=== PATIENT | female | born 1960 | race Caucasian/White ===

== ENCOUNTER 2017-01-03 13:03 | Emergency (ER) | payer MEDICARE, MEDICAID ==
[2017-01-03 13:10] VITALS: BP 151/105
[2017-01-03] MEDS ORDERED: Ondansetron ODT TAB* 4 MG PO ONE (14:30)
--- NOTE | 2017-01-03 14:41 | UC ---
Dizzy HPI HPI Summary: Bilat ear "clanging," "metallic sound" with pain, altered equilibrium, nausea starting 2 days ago. Denies fever, nasal congestion, vomiting, cough. - History Of Current Complaint Chief Complaint: UCEar Stated Complaint: EAR ISSUE Time Seen by Provider: 01/03/17 13:49 Hx Obtained From: Patient Hx Last Menstrual Period: jul 2012 ?: No Onset/Duration: Gradual Onset, Lasting Days Timing: Constant Severity Initially: Moderate Severity Currently: Moderate Character: Weak, Dizzy Aggravating Factor(s): Nothing Alleviating Factor(s): Nothing Associated Signs And Symptoms: Positive: Nausea, Tinnitus, Unsteady Gait - Allergies/Home Medications Allergies/Adverse Reactions: Allergies Allergy/AdvReac Type Severity Reaction Status Date / Time Cortisone Allergy Mild Rash, Verified 04/03/16 15:07 SEVERE NAUSEA AND VOMITING PMH/Surg Hx/FS Hx/Imm Hx Cardiovascular History: Hypertension, Deep Vein Thrombosis, Bleeding Disorders - on anticoagnulant Respiratory History: Asthma - Surgical History Surgical History: Yes Surgery Procedure, Year, and Place: [place] AGE 9[place] [facility] [place] [facility] [place] lumpectomy right, D&C and uterine ablation 2010 - Family History Known Family History: Positive: Cardiac Disease Negative: Other - JOINT LAXITY Family History: Mother: Heart failure. Father: Stroke - Social History Lives: Alone Alcohol Use: None Substance Use Type: None Smoking Status (MU): Former Smoker When Did the Patient Quit Smoking/Using Tobacco: many years ago - Immunization History Most Recent Influenza Vaccination: 2013 Most Recent Tetanus Shot: in the past year Most Recent Pneumonia Vaccination: none Review of Systems Constitutional: Negative Skin: Negative Eyes: Negative ENT: Negative Respiratory: Negative Cardiovascular: Negative Gastrointestinal: Negative Genitourinary: Negative Motor: Negative Neurovascular: Negative Musculoskeletal: Negative Neurological: Headache, Weakness Psychological: Negative All Other Systems Reviewed And Are Negative: Yes Physical Exam Triage Information Reviewed: Yes Appearance: Well-Nourished, Pain Distress - crying Vital Signs: Initial Vital Signs Temp 98 F 01/03/17 13:07 Pulse 83 01/03/17 13:07 Resp 18 01/03/17 13:07 BP 151/105 01/03/17 13:07 Pulse Ox 99 01/03/17 13:07 Vital Signs Reviewed: Yes Eye Exam: Other - pt c/o double vision at extremes of gaze Eyes: Positive: Conjunctiva Clear ENT: Positive: Normal ENT inspection, Hearing grossly normal, Pharynx normal, TMs normal. Negative: TM bulging, TM dull, Tonsillar swelling, Tonsillar exudate Dental Exam: Normal Neck exam: Normal Neck: Positive: Supple, Nontender Respiratory Exam: Normal Respiratory: Positive: Chest non-tender, Lungs clear, Normal breath sounds, No respiratory distress, No accessory muscle use Cardiovascular Exam: Normal Cardiovascular: Positive: RRR, No Murmur Musculoskeletal: Positive: Strength Intact, ROM Intact Neurological Exam: Other - unable to keep upright with tandem walk Neurological: Positive: Alert Psychological Exam: Other - upset, uncomfotable Skin Exam: Normal Dizzy Course/Dx - Differential Dx/Diagnosis Provider Diagnoses: vertigo, possible central cause - Physician Notifications Discussed Patient Care With: Gianni Chino Time Discussed With Above Provider: 14:49 Instructed by Provider To: MD Will See In ED Discharge - Discharge Plan Condition: Stable Disposition: TRANS HIGHER LVL OF CARE FAC
[2017-01-03] MEDS ORDERED: NS 0.9% 1000 ML* 1,000 ML BOLUS ONE (14:48)
[2017-01-03] MEDS ORDERED: Ondansetron INJ* 2 MG/ML VIAL IV ONE (14:48)
== END 2017-01-03 15:30 | disposition short-term general hospital (02) ==
LOC: UCEAST 13:03
DX: Z87.891 Personal history of nicotine dependence (principal); R42 Dizziness and giddiness
CPT/HCPCS: 96360; 96374; 99213; G0463; J2405

== ENCOUNTER 2017-01-03 15:50 | Observation (INO) | payer MEDICARE, MEDICAID ==
[2017-01-03 17:05] LABS: Hematocrit 35 % (35-47); Hemoglobin 11.9 g/dl (12.0-16.0); Mean Corpuscular HGB Conc 34 g/dl (31-36); Mean Corpuscular Hemoglobin 32 pg (27-31); Mean Corpuscular Volume 95 fL (80-97); Mean Platelet Volume 8 um3 (7.4-10.4); Red Blood Count 3.74 10^6/ul (4.0-5.4); Red Cell Distribution Width 13 % (10.5-15); White Blood Count 7.9 10^3/ul (3.5-10.8)
[2017-01-03 17:22] LABS: Albumin 4.1 g/dL (3.2-5.2); BUN/Creatinine Ratio 19.9 (8-20); Calcium 9.8 mg/dL (8.6-10.3); EGFR African American 49.8 (>60); EGFR Non-African American 38.7 (>60); Globulin 3.6 g/dL (2-4); Magnesium 2.3 mg/dL (1.9-2.7); Potassium 3.4 mmol/L (3.5-5.0); Total Bilirubin 0.5 mg/dL (0.2-1.0); Total Protein 7.7 g/dL (6.4-8.9)
--- NOTE | 2017-01-03 17:26 | ED ---
Neurological HPI - HPI Summary HPI Summary: 56F presents with two days of feeling off balance and tilting to the right. She states she has a grating noise in her right ear. She states her symptoms are worst when she lies down. She admits to nausea and vomiting. She states this has made her unsteady on her feet. She has not fallen. She denies any weakness. She denies any numbness or tingling. She denies any change in speech. She does admits to a headache that starts by her right ear and travels across her head. She denies any fullness in her ears. She denies any fever or sinus tenderness or tooth pain. She denies any new medications. She denies any previous stroke but does have a family history of strokes. She denies any history of ear infection or balance issues. She is on blood thinners for PE and DVT and has HTN. - History of Current Complaint Chief Complaint: EDGeneral Stated Complaint: DIZZINESS Time Seen by Provider: 01/03/17 16:40 Hx Last Menstrual Period: jul 2012 Pain Intensity: 8 - Allergy/Home Medications Allergies/Adverse Reactions: Allergies Allergy/AdvReac Type Severity Reaction Status Date / Time Cortisone Allergy Mild Rash, Verified 04/03/16 15:07 SEVERE NAUSEA AND VOMITING Home Medications: Home Medications Cyanocobalamin [Vitamin B-12] 400 mcg PO DAILY 01/03/17 [History Confirmed 01/03] Folic Acid TAB* [Folvite TAB*] 2 mg PO DAILY 01/03/17 [History Confirmed ] Ibuprofen TAB* [Advil TAB*] 400 mg PO TID PRN 01/03/17 [History Confirmed ] Multivitamins/Minerals TAB* [Theragran/minerals TAB*] 1 tab PO DAILY 01/03/17 [ History Confirmed 01/03/17] Pyridoxine TAB* [Vitamin B6 TAB*] 25 mg PO DAILY 01/03/17 [History Confirmed ] Rivaroxaban TAB(*) [Xarelto 20 mg] 20 mg PO DAILY 01/03/17 [History Confirmed ] PMH/Surg Hx/FS Hx/Imm Hx Endocrine/Hematology History: Reports: Hx Anemia - HISTORY OF Denies: Hx Diabetes Cardiovascular History: Reports: Hx Hypertension, Other Cardiovascular Problems/ Disorders - HISTORY OF IRREGULAR HEARTBEAT Denies: Hx Pacemaker/ICD Respiratory History: Reports: Hx Asthma History: Reports: Other Problems/Disorders - HX OF UTI, NONE NOW Denies: Hx Renal Disease Musculoskeletal History: Reports: Hx Tendonitis - RIGHT FOOT Sensory History: Reports: Hx Contacts or Glasses Denies: Hx Hearing Aid Opthamlomology History: Reports: Hx Contacts or Glasses Neurological History: Reports: Hx Headaches, Hx Migraine - PRN MEDICATION - NONE FOR A FEW MONTHS Psychiatric History: Reports: Hx Anxiety - ON MEDICATION, Hx Depression, Hx Post Traumatic Stress Disorder, Hx Substance Abuse - not for 6 years Denies: Hx Eating Disorder, Hx Panic Disorder, Hx of Violent Episodes Against Others - Cancer History Hx Chemotherapy: No Hx Radiation Therapy: No - Surgical History Surgery Procedure, Year, and Place: T/A AGE 9, [facility] 1997 Left foot adenoma, [facility] 2002 benign lumpectomy right, D&C and uterine ablation 2010 Hx Anesthesia Reactions: No Infectious Disease History: No Infectious Disease History: Reports: Hx of Known/Suspected MRSA Denies: Hx Clostridium Difficile, Hx Hepatitis, Hx Human Immunodeficiency Virus (HIV), Hx Shingles, Hx Tuberculosis, Hx Known/Suspected VRE, Hx Known/ Suspected VRSA, History Other Infectious Disease, Traveled Outside the [place] in Last 30 Days - Family History Known Family History: Positive: Unknown, Cardiac Disease Negative: Other - JOINT LAXITY Family History: Mother: Heart failure. Father: Stroke - Social History Alcohol Use: None Substance Use Type: Reports: None Hx Tobacco Use: Yes Smoking Status (MU): Former Smoker Review of Systems Negative: Fever Positive: Ear Ache Negative: Chest Pain Negative: Shortness Of Breath Positive: Headache All Other Systems Reviewed And Are Negative: Yes Physical Exam Triage Information Reviewed: Yes Vital Signs On Initial Exam: Initial Vitals Temp Pulse Resp BP Pulse Ox 98.0 F 70 20 154/69 100 01/03/17 16:03 01/03/17 16:03 01/03/17 16:03 01/03/17 16:03 01/03/17 16:03 Vital Signs Reviewed: Yes Appearance: Positive: Well-Appearing Skin: Positive: Warm, Dry Head/Face: Positive: Normal Head/Face Inspection Eyes: Positive: Normal, EOMI, SARAH, Conjunctiva Clear ENT: Positive: Normal ENT inspection, Pharynx normal, TMs normal Respiratory/Lung Sounds: Positive: Clear to Auscultation, Breath Sounds Present Cardiovascular: Positive: Normal, RRR Neurological: Positive: Sensory/Motor Intact, Alert, Oriented to Person Place, Time, CN Intact II-III, Heel to Toe, Finger to Nose - [place] Coma Scale Best Eye Response: 4 - Spontaneous Best Motor Response: 6 - Obeys Commands Best Verbal Response: 5 - Oriented Coma Scale Total: 15 Diagnostics - Vital Signs Vital Signs Temp Pulse Resp BP Pulse Ox 01/03/17 16:05 98.0 F 74 20 154/69 100 01/03/17 16:03 98.0 F 70 20 154/69 100 - Laboratory Lab Results: Lab Results 01/03/17 01/03/17 01/03/17 Range/Units 16:55 16:55 16:55 WBC 7.9 (3.5-10.8) 10^3/ul RBC 3.74 L (4.0-5.4) 10^6/ul Hgb 11.9 L (12.0-16.0) g/dl Hct 35 (35-47) % MCV 95 (80-97) fL MCH 32 H (27-31) pg MCHC 34 (31-36) g/dl RDW 13 (10.5-15) % Plt Count 280 (150-450) 10^3/ul MPV 8 (7.4-10.4) um3 Neut % (Auto) 53.7 (38-83) % Lymph % (Auto) 30.4 (25-47) % [place] % (Auto) 6.9 (1-9) % Eos % (Auto) 7.4 H (0-6) % Baso % (Auto) 1.6 (0-2) % Absolute Neuts (auto) 4.2 (1.5-7.7) 10^3/ul Absolute Lymphs (auto) 2.4 (1.0-4.8) 10^3/ul Absolute Monos (auto) 0.5 (0-0.8) 10^3/ul Absolute Eos (auto) 0.6 (0-0.6) 10^3/ul Absolute Basos (auto) 0.1 (0-0.2) 10^3/ul Absolute Nucleated RBC 0.01 10^3/ul Nucleated RBC % 0.1 INR (Anticoag Therapy) 1.05 (0.89-1.11) Sodium 138 (133-145) mmol/L Potassium 3.4 L (3.5-5.0) mmol/L Chloride 108 (101-111) mmol/L Carbon Dioxide 21 L (22-32) mmol/L Anion Gap 9 (2-11) mmol/L BUN 28 H (6-24) mg/dL Creatinine 1.41 H (0.51-0.95) mg/dL Est GFR ( Amer) 49.8 (>60) Est GFR (Non-Af Amer) 38.7 (>60) BUN/Creatinine Ratio 19.9 (8-20) Glucose 85 (70-100) mg/dL Lactic Acid (0.5-2.0) mmol/L Calcium 9.8 (8.6-10.3) mg/dL Magnesium 2.3 (1.9-2.7) mg/dL Total Bilirubin 0.50 (0.2-1.0) mg/dL AST 17 (13-39) U/L ALT 15 (7-52) U/L Alkaline Phosphatase 67 (34-104) U/L Troponin I 0.00 (<0.04) ng/mL Total Protein 7.7 (6.4-8.9) g/dL Albumin 4.1 (3.2-5.2) g/dL Globulin 3.6 (2-4) g/dL Albumin/Globulin Ratio 1.1 (1-3) TSH Pending 01/03/17 Range/Units 16:55 WBC (3.5-10.8) 10^3/ul RBC (4.0-5.4) 10^6/ul Hgb (12.0-16.0) g/dl Hct (35-47) % MCV (80-97) fL MCH (27-31) pg MCHC (31-36) g/dl RDW (10.5-15) % Plt Count (150-450) 10^3/ul MPV (7.4-10.4) um3 Neut % (Auto) (38-83) % Lymph % (Auto) (25-47) % [place] % (Auto) (1-9) % Eos % (Auto) (0-6) % Baso % (Auto) (0-2) % Absolute Neuts (auto) (1.5-7.7) 10^3/ul Absolute Lymphs (auto) (1.0-4.8) 10^3/ul Absolute Monos (auto) (0-0.8) 10^3/ul Absolute Eos (auto) (0-0.6) 10^3/ul Absolute Basos (auto) (0-0.2) 10^3/ul Absolute Nucleated RBC 10^3/ul Nucleated RBC % INR (Anticoag Therapy) (0.89-1.11) Sodium (133-145) mmol/L Potassium (3.5-5.0) mmol/L Chloride (101-111) mmol/L Carbon Dioxide (22-32) mmol/L Anion Gap (2-11) mmol/L BUN (6-24) mg/dL Creatinine (0.51-0.95) mg/dL Est GFR ( Amer) (>60) Est GFR (Non-Af Amer) (>60) BUN/Creatinine Ratio (8-20) Glucose (70-100) mg/dL Lactic Acid 1.2 (0.5-2.0) mmol/L Calcium (8.6-10.3) mg/dL Magnesium (1.9-2.7) mg/dL Total Bilirubin (0.2-1.0) mg/dL AST (13-39) U/L ALT (7-52) U/L Alkaline Phosphatase (34-104) U/L Troponin I (<0.04) ng/mL Total Protein (6.4-8.9) g/dL Albumin (3.2-5.2) g/dL Globulin (2-4) g/dL Albumin/Globulin Ratio (1-3) TSH Result Diagrams: 01/03/17 16:55 01/03/17 16:55 Lab Statement: Any lab studies that have been ordered have been reviewed, and results considered in the medical decision making process. - CT brain CT Interpretation: Positive (See Comments) - IMPRESSION: 1. No acute intracranial process evident. 2. 4 mm chronic appearing lacunar infarct at the LEFT basal ganglia new compared with the [address] Interpretation Completed By: Radiologist NIH Scale - NIH Scale Level of Consciousness: Alert/Keenly Responsive Ask Patient the Month and His/Her Age: Both Correct Ask Pt to Open/Close Eyes and [place]/Release Non-Paretic Hand: Both Correctly Best Gaze (Only Horizontal Eye Movement): Normal Visual Field Testing: No Visual Loss Facial Paresis-Pt to Smile & Close Eyes or Grimace Symmetry: Normal/Symmetrical Motor Function - Right Arm: No Drift-Holds 10 Seconds Motor Function - Left Arm: No Drift-Holds 10 Seconds Motor Function - Right Leg: No Drift-Holds 10 Seconds Motor Function - Left Leg: No Drift-Holds 10 Seconds Limb Ataxia-Must be out of Proportion to Weakness Present: Absent Sensory (Use Pinprick to Test Arms/Legs/Trunk/Face): Normal Best Language (Describe Picture, Name Items): No Aphasia Dysarthria (Read Several Words): Normal Extinction and Inattention: No Abnormality Total Score: 0 Course/Dx - Course Course Of Treatment: 56F presents with two days of feeling off balance and tilting to the right. She states she has a grating noise in her right ear. She states her symptoms are worst when she lies down. She admits to nausea and vomiting. She states this has made her unsteady on her feet. She has not fallen. She denies any weakness. She denies any numbness or tingling. She denies any change in speech. She does admits to a headache that starts by her right ear and travels across her head. normal neuro exam. no nystagmsus. CT shows old lacunar infarct. dr hernandez saw patient and states should admits patient as new old lacunar infaract. has risk factors for CVA. dr mirza agrees to admission. patient understands and agrees with plan - Differential Dx Differential Diagnoses Neuro: Positive: Benign Paroxysmal Positional Vertigo, Cerebrovascular Accident, Labyrinthitis, Meniere's, Transient Ischemic Attack - Diagnoses Provider Diagnoses: Vertigo, Ear pain Discharge - Discharge Plan Condition: Stable Disposition: ADMITTED TO [facility]
--- NOTE | 2017-01-03 17:36 | RAD ---
Indication: Headache. Bilateral ear pain. Dizziness, unsteady gait. Comparison: July 13, 2008 CT. Technique: Noncontrast CT vertex of skull through foramen magnum. Report: Unremarkable cerebral sulci, ventricles, and basal cisterns. 4 mm chronic appearing lacunar infarct at the LEFT basal ganglia new compared with the 2009 exam. Negative for gandhi matter white matter obscuration, intra or extra-axial hemorrhage, or mass effect. Unremarkable orbital contents. Unremarkable calvarium and skull base. Clear visualized paranasal sinuses and mastoid air spaces. Negative for scalp lesions. IMPRESSION: 1. No acute intracranial process evident. 2. 4 mm chronic appearing lacunar infarct at the LEFT basal ganglia new compared with the 2008 exam.
[2017-01-03 17:42] LABS: TSH (Thyroid Stimulating Horm) 2.02 mcIU/mL (0.34-5.60)
[2017-01-03 17:58] LABS: Urine Bilirubin Negative (Negative); Urine Glucose Negative (Negative); Urine Nitrite Negative (Negative)
[2017-01-03] MEDS ORDERED: Aspirin Low Dose CHEW TAB* 81 MG PO ONE (17:59)
[2017-01-03] MEDS ORDERED: Ondansetron INJ* 2 MG/ML VIAL IV PRN (19:33)
[2017-01-03] MEDS ORDERED: Potassium Chlor TAB* 20 MEQ TAB.ER PO ONE (20:00)
[2017-01-03 20:06] LABS: Erythrocyte Sed Rate 72 mm/Hr (0-30)
[2017-01-03] MEDS ORDERED: Mometasone 220 MCG MDI INH SCH (21:00)
[2017-01-03] MEDS ORDERED: Acetaminophen TAB* 325 MG PO PRN (22:00)
[2017-01-03] MEDS: ALPRAZolam TAB* 0.5 MG PO PRN (22:03)
--- NOTE | 2017-01-03 22:04 | RAD ---
INDICATION: CVA. COMPARISON: No relevant prior exams available on the [facility] PACS for comparison. TECHNIQUE: Bilateral carotid duplex scan. Stenosis estimations reflect velocity criteria that have been correlated to angiographic stenosis calculations based on distal internal carotid diameter. REPORT: RIGHT ICA: 76 cm/s peak systolic 30 cm/s end diastolic CCA: 100 cm/s peak systolic ICA/CCA peak systolic ratio: 0.76 The right common carotid artery and internal carotid artery are without evidence for significant atherosclerotic disease. Normal spectral wave forms are present throughout. Antegrade flow in the right vertebral artery. LEFT ICA: 65 cm/s peak systolic 22 cm/s end diastolic CCA: 106 cm/s peak systolic ICA/CCA peak systolic ratio: 0.61 The left common carotid artery and internal carotid artery are without evidence for significant atherosclerotic disease. Normal spectral wave forms are present throughout. Antegrade flow in the left vertebral artery. Incidental 1 cm heterogeneous echogenicity nodule noted in the LEFT thyroid lobe. IMPRESSION: 1. No evidence for RIGHT or LEFT internal carotid artery stenosis. 2. Incidental LEFT thyroid lobe nodule. Consider follow-up dedicated thyroid ultrasound for further assessment. CPT II Codes: 3100F
--- NOTE | 2017-01-03 22:47 | CONS ---
NEUROLOGY CONSULTATION REPORT: DATE OF FOLLOWUP: 01/03/17 REFERRING PROVIDER: RONALDO Bo. LOCATION: She is in the emergency room to be admitted. CHIEF COMPLAINT: Dizziness, tinnitus. HISTORY OF PRESENT ILLNESS: Chayo Huang is a 56-year-old woman who 2 days ago noted a clanging sound in her right ear. It fluctuates in intensity, but has been pretty constant. It is like metal being banged together. It does not seem to synchronize with her heartbeat, but it is "driving me crazy." At the time, she feels that she is tilting to the right. It is a constant sensation and not affected by position. She has not fallen, but she feels like she has to walk more cautiously. She also has noted some intermittent diplopia. It can be in any field of gaze and seems to be horizontal. She has not noticed any headache recently, but does have a history of migraines. She has not noticed any change in speech, swelling or numbness. She has not noticed any incoordination in her hands. She presented to the emergency room today 2 days after onset of symptoms for evaluation. PAST MEDICAL HISTORY: Negative for cerebrovascular disease. She has a history of hypertension, alcohol abuse in remission, bipolar disorder, suicide attempts , pulmonary embolus and deep vein thrombosis resulting in anticoagulation, anxiety disorder, posttraumatic stress disorder, migraines. MEDICATIONS: Medications at home consist of Xarelto, Ambien 10 mg p.o. q.h.s., alprazolam 1 mg t.i.d. p.r.n. anxiety, gabapentin 300 mg p.o. b.i.d., verapamil 180 mg p.o. daily, sumatriptan p.r.n. ALLERGIES: She states she is allergic to CORTISONE. REVIEW OF SYSTEMS: Negative for headaches in the last couple of days, but she does get episodic migraines. She quit drinking alcohol about 6 years ago. She has not noticed any loss of hearing, but just the tinnitus as described above. She has not had any recent colds, flu, sore throats or fevers. She is a little bit nauseous in the last couple of days, but no vomiting. She has had great difficulty sleeping in the last couple of days in addition to her chronic insomnia. There has been no change in any of her medications in recent weeks, she states. PHYSICAL EXAMINATION: She is overweight, well hydrated. Temperature 98.0 temporally, blood pressure is 154/70, heart rate is running in the 70s. Lungs are clear bilaterally. Skin is warm and moist. Heart is in a regular rate and rhythm without murmurs. Carotid pulses are symmetrical and there are no anterior or posterior cervical bruits. Tympanic membranes are a little bit dull bilaterally. Neurologic exam, pupils are equal and react to light from about 3.5 to 2 mm. Funduscopic exam is normal. Eye movements are full and she reports diplopia in left gaze, but I do not see overt ophthalmoplegia. There are a few beats of nystagmus in right gaze and more sustained nystagmus in left gaze. Visual kim are full to confrontation. Facial musculature is symmetric. Facial sensation to light touch and temperature is intact. Palate and tongue appear normal, tongue protrudes in the midline, there is no dysarthria. Hearing is intact bilaterally. Neck strength is normal. Motor exam reveals normal tone and strength in the limbs proximally and distally. There is no pronator drift. There is no downward drift of her legs. Scaegs-[id number] maneuver is tremulous bilaterally. There is no dysmetria. Heel- to- caballero maneuvers are normal bilaterally. She may have a slight right head tilt. Reflexes are very brisk except for ankles which are absent. Plantar responses are flexor bilaterally. Gait is a little wide-based and very cautious. She is alert, oriented, and very anxious appearing. Memory is otherwise intact and language is fluent. She has normal attention, concentration, and fund of knowledge. DIAGNOSTIC STUDIES/LAB DATA: Includes a CT of the brain, which I reviewed, reveals an old-appearing subcortical left hemisphere infarct and appears to be in the deep white matter, although it is read as being in the basal ganglia. It was not present on a CAT scan in 2008. Other laboratory data notable for a normal CBC other than a hemoglobin of 11.9, INR 1.05, PTT 36.2. Chemistry is notable for a creatinine of 1.41, which historically is close to her baseline over the last several years. TSH is normal today. IMPRESSION AND PLAN: Impression is that of a sense of tilt and tinnitus, which I cannot explain well on a peripheral vestibular basis. She has what appears to be an old subcortical infarct in the left hemisphere on her CT of the brain, which was not present in 2009. She also has chronic renal insufficiency and hypertension, and I think it best that she be admitted and evaluated for a possible stroke. She should have an MRI of the brain, a carotid ultrasound of the neck. I would like to get a CTA or MR angiogram of her brain if possible, but we need to be careful with contrast given her renal function. She will remain on Xarelto. I do not think I would add antiplatelet therapy at this point yet. I will follow her and make recommendations based on her clinical course and the results of her studies. [id number]/[facility] #: [id number] ZACH
--- NOTE | 2017-01-03 23:21 | HP ---
CC: Jose R Viramontes MD; Harpal Chakraborty MD * HISTORY AND PHYSICAL: DATE OF ADMISSION: 01/03/17 PRIMARY CARE PROVIDER: Jose R Viramontes MD ATTENDING PHYSICIAN: Jez Villanueva MD * (dictated by Zayra Tucker NP) CHIEF COMPLAINT: Clinging metal sound in bilateral ears and tilting to right side. HISTORY OF PRESENT ILLNESS: Ms. Huang is a 56-year-old female with past medical history significant for hypertension, history of DVT, history of PE, asthma, bipolar, anxiety, PTSD, hyperlipidemia, and migraines, who presents to the emergency room from urgent care center for further evaluation of her symptoms. The patient states that 2 days ago, she developed a bilateral sound in her ears. She describes as a clinging metal sound and a dull headache. The patient also has dizziness intermittently and an unsteady gait. She noticed that she was tilting to the right side. The patient denied any recent fever, chills, chest pain, shortness of breath, cold symptoms such as nasal congestion , runny nose, cough. The patient reports nausea when the sound is "bad." She denies any lightheadedness or dizziness, more of a feeling like she is going to fall to the right. She reports double vision. The patient presented to Urgent Care for further evaluation of her symptoms. While at Urgent Care, the patient received normal saline and Zofran and was transported to the emergency room via EMS. While in the emergency room, the patient had labs that were significant for hyperkalemia with a potassium of 3.7, her other labs were fairly unremarkable. Her BUN and creatinine are elevated, but at her baseline. The patient had an EKG showing a sinus rhythm with a rate of 60, no signs of acute ischemia. The patient had a head CT showing no acute intracranial processes, but a 4 mm chronic appearing lacunar infarct at the left basal ganglia, it is new compared to 2008. The patient was seen in consultation by Dr. Harpal Chakraborty with Neurology, who recommended the patient be admitted for further evaluation and a stroke workup. Hospitalists were asked to evaluate the patient for admission. PAST MEDICAL HISTORY: 1. Hypertension. 2. History of DVT in 2015. 3. History of PE in 2013. 4. Asthma. 5. Bipolar. 6. Anxiety. 7. PTSD. 8. Hyperlipidemia. 9. Migraines. 10. Chronic Kidney Disease. PAST SURGICAL HISTORY: 1. Status post tonsillectomy and adenoidectomy at age 9. 2. Status post excision of a left-sided neuroma in 1997. 3. Status post right breast lumpectomy in 2002. 4. Status post D and C and uterine ablation in 2010. HOME MEDICATIONS: Include: 1. Ambien 10 mg oral daily at bedtime. 2. Verapamil 180 mg oral daily. 3. Triamterene/hydrochlorothiazide 37.5/25 one tablet oral daily. 4. Imitrex 25 mg oral daily as needed for migraine. 5. Xarelto 20 mg oral daily. 6. Multivitamin 1 tablet oral daily. 7. Ibuprofen 400 mg oral 3 times daily as needed for pain. 8. [place] 5/325 one tablet oral every 8 hours as needed for pain. 9. Folic acid 2 mg oral daily. 10. Fluticasone HFA 110 mcg 1 puff inhalation twice daily. 11. Pristiq 100 mg oral every morning. 12. Vitamin B12 100 mg oral daily. 13. Albuterol 1 puff inhalation every 6 hours as needed for shortness of breath or wheeze. 14. Xanax 0.5 mg oral 3 times daily as needed for anxiety. 15. Vitamin D6 25 mg oral daily. ALLERGIES: CORTISONE. FAMILY HISTORY: The patient's mother has a history of heart failure and a myocardial infarction and kidney cancer. The patient's father had a history of 2 cerebrovascular accidents. The patient's brother with a history of bladder cancer. She denies any family history of diabetes mellitus. SOCIAL HISTORY: The patient is a former smoker. She quit smoking approximately 5 years ago. Prior to that, she had a half a pack a day history of 10 years. 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 She denies recreational drug use. 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 Her daughter, Ivon Jackman, will be her surrogate decision maker in the event she is unable to make decisions for herself. REVIEW OF SYSTEMS: I performed a 14-point review of systems. All the pertinent positives and negatives are mentioned in the history of present illness. The remaining review of systems are negative. PHYSICAL EXAMINATION GENERAL APPEARANCE: The patient is alert, pleasant, appears to be in no acute distress. VITAL SIGNS: Temperature 98.0, heart rate 72, respiratory rate 20, O2 sat 100% on room air, blood pressure 154/69. HEENT: Normocephalic, atraumatic. Pupils are equal and reactive to light. Extraocular movements are intact. RESPIRATORY: There is no accessory muscle use. The lungs are clear to auscultation bilaterally. CARDIOVASCULAR: Regular rate and rhythm. S1 and S2 are present. There are no murmurs, rubs, or gallops heard. ABDOMEN: Soft, nontender, nondistended. There are bowel sounds present x4. EXTREMITIES: There is no lower extremity edema. DP and PT pulses are 2+ and symmetric. MUSCULOSKELETAL: There is no clubbing or cyanosis noted. The patient exhibits good strength in all extremities. NEUROLOGICAL: The patient is alert and oriented x4. Cranial nerves II through XII are grossly intact. The patient's tongue is midline. Her smile was symmetric. 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 She is able to dorsi and plantarflex bilaterally. The patient is able to perform [id number] bilaterally with some difficulty due to double vision. PSYCHOLOGICAL: The patient is calm and cooperative. SKIN: There are no rashes or abnormalities seen. DIAGNOSTIC STUDIES/LABORATORY DATA: Sodium 138, potassium 3.4, chloride 108, CO2 21, BUN 28, creatinine 1.41, and glucose 85. Troponin 0.00. TSH 2.02. White blood cell count 7.9, hemoglobin 11.9, hematocrit 35, and platelet count 280. EKG shows a normal sinus rhythm with a rate of 60, there are no acute signs of ischemia. This EKG is similar to previous EKG from 05/17/14. Brain CT from today. Radiologist's impression: No acute intracranial process evident. 4-mm chronic appearing lacunar infarct at the left basal ganglia, new compared to 2009 exam. IMPRESSION: Ms. Huang is a 56-year-old female with past medical history significant for hypertension, history of deep venous thrombosis, pulmonary embolism, asthma, bipolar, anxiety, post traumatic stress disorder, hyperlipidemia, and migraines who presents to the emergency room from urgent care center with complaints of bilateral metal clinging in her ears in addition to a headache and tilting to the right side for the last 2 days. She will be admitted as an inpatient for a subacute lacunar infarct. ASSESSMENT AND PLAN: 1. Subacute lacunar infarct at the left basal ganglia. The patient has already been seen in consultation by Dr. Chakraborty with Neurology in the emergency room. The patient will be admitted and monitored on telemetry. We will get neurological checks every 4 hours. We will check fasting lipids in the morning. We will also get a transthoracic echocardiogram and a brain MRI. Due to the patient's baseline chronic renal disease, we will not get a CT of the head and neck. Instead, we will get an MRI of the brain without contrast and bilateral carotid Doppler ultrasound. For now, we will hold on giving the patient aspirin as she is already fully anticoagulated on Xarelto. 2. Hypokalemia. Will give oral replacement tonight and recheck labs in the AM. Will also add a magnesium level to the ED labs and replace if needed. 3. History of deep venous thrombosis and pulmonary embolism. The patient has had what sounds to be 2 provoked clots. The patient has been seen in consultation with Dr. Pacheco. It was recommended that the patient be placed on lifelong anticoagulation therapy. We will continue the patient's Xarelto. 4. Bipolar, anxiety, post traumatic stress disorder. The patient will be continued on her home Pristiq and Xanax as needed. 5. Hypertension. For now, we will hold the patient's verapamil and triamterene hydrochlorothiazide and allow for permissive hypertension in the setting of a recent cerebrovascular accident. 6. Hyperlipidemia. The patient reports a history of hyperlipidemia. She is currently not on any medication. We will check fasting lipids in the morning and start a statin accordingly. 7. History of migraines. Not a current issue at this time. 8. Fluids, electrolytes, and nutrition. The patient will be on a heart healthy diet. 9. Code status. Full code. 10. DVT prophylaxis. The patient is a high risk and will be continued on her home Xarelto. 11. Disposition. Inpatient for subacute cerebrovascular accident. TIME SPENT: Time for this admission was approximately 60 minutes, greater than half of that was spent [id number] with the patient discussing on medications, past medical history, and the events leading up to her arrival today, and performing physical examination. The case has been reviewed with the attending, Dr. Villanueva, who agrees with the plan of care. Reviewed by NIRAJ FRAZIER-C 01/04/17 1434 [id number]/[facility] #: [id number] [facility]
[2017-01-04 05:42] LABS: BUN/Creatinine Ratio 18.4 (8-20); Calcium 9.3 mg/dL (8.6-10.3); EGFR African American 45.7 (>60); EGFR Non-African American 35.5 (>60); HDL Cholesterol 34.5 mg/dL; Potassium 4.3 mmol/L (3.5-5.0)
[2017-01-04] MEDS: ALPRAZolam TAB* 0.5 MG PO PRN (08:55)
[2017-01-04] MEDS ORDERED: Rivaroxaban TAB(*) 20 MG TAB PO SCH (09:00)
[2017-01-04] MEDS ORDERED: Multivitamins/Minerals TAB PO SCH (09:00)
[2017-01-04] MEDS ORDERED: Folic Acid TAB* 1 MG PO SCH (09:00)
[2017-01-04] MEDS ORDERED: Pyridoxine TAB* 50 MG PO SCH (09:00)
[2017-01-04] MEDS ORDERED: CMCS:Desvenlafaxine (NF) 50 MG TAB PO SCH (09:00)
--- NOTE | 2017-01-04 11:12 | RAD ---
HISTORY: Stroke COMPARISONS: Head CT dated January 03, 2017 TECHNIQUE: The following sequences were obtained of the head: Sagittal T1-weighted images, axial T2-weighted images, axial FLAIR images, axial susceptibility weighted images, axial T1-weighted images. Additionally, axial diffusion-weighted images were obtained with calculated apparent diffusion coefficients. FINDINGS: HEMORRHAGE/INFARCT: There is no hemorrhage or acute infarct. MASSES/SHIFT: There is no mass or shift. EXTRA-AXIAL SPACES/MENINGES: There are no extra-axial fluid collections. SULCI AND VENTRICLES: The sulci and ventricles are normal in size and position for the patient's stated age. CEREBRUM: There is a chronic lacunar infarct of the left posterior frontal sherman radiata. There are scattered small foci of elevated T2/FLAIR signal in the periventricular and subcortical white matter. BRAINSTEM: There are no focal parenchymal abnormalities. CEREBELLUM: There are no focal parenchymal abnormalities. The cerebellar tonsils are normal in size and position. SELLA: The sella is normal. PINEAL: The pineal region is clear. CP ANGLE/TEMPORAL BONES: The labyrinthine structures are grossly normal. VESSELS: Normal flow-voids are noted within the visualized vertebral vasculature. DIFFUSION ABNORMALITIES: There are no diffusion abnormalities. PARANASAL SINUSES/MASTOIDS: The paranasal sinuses are clear. ORBITS: The orbits are unremarkable. BONES AND SOFT TISSUE: No bone or soft tissue abnormalities are noted. OTHER: None IMPRESSION: 1. SCATTERED SMALL FOCI OF ELEVATED T2/FLAIR SIGNAL IN THE PERIVENTRICULAR AND SUBCORTICAL WHITE MATTER. WHILE NONSPECIFIC, THESE LIKELY REPRESENT CHRONIC SMALL VESSEL ISCHEMIC CHANGE GIVEN THE PRESENCE OF A CHRONIC LACUNAR INFARCT OF THE LEFT FRONTAL SHERMAN RADIATA. 2. NO RESTRICTED DIFFUSION TO SUGGEST ACUTE INFARCT.
--- NOTE | 2017-01-04 11:13 | RAD ---
HISTORY: Stroke COMPARISONS: MRI dated January 04, 2017 TECHNIQUE: 3-D axial [id number] MR angiography was performed of the head to include the [place]. Multiple 3-D maximum intensity projection reconstructions are also submitted for review. FINDINGS: The study is limited by patient motion artifact. RIGHT VERTEBRAL ARTERY: The distal right vertebral artery is unremarkable, without stenosis. LEFT VERTEBRAL ARTERY: The distal left vertebral artery is unremarkable, without stenosis. DOMINANCE: The right vertebral artery is dominant. DISTAL RIGHT CERVICAL INTERNAL CAROTID ARTERY: The distal right cervical internal carotid artery is tortuous. DISTAL LEFT CERVICAL INTERNAL CAROTID ARTERY: The distal left cervical internal carotid artery is tortuous. INTRACRANIAL CIRCULATION: There is no aneurysm, vascular malformation, occlusion, or stenosis of the visualized intracranial circulation. The anterior communicating artery complex is clear. Bilateral posterior communicating arteries are identified. OTHER FINDINGS: None IMPRESSION: NO ANEURYSM, VASCULAR MALFORMATION, OCCLUSION, OR STENOSIS OF THE VISUALIZED INTRACRANIAL CIRCULATION.
--- NOTE | 2017-01-04 13:35 | PN ---
Subjective Date of Service: 01/04/17 Interval History: Pt is feeling unchanged from admission. She states she still hears metal clapping in her ears and feels as if she is tilting to the right. She otherwise has no complaints. Objective Active Medications: Acetaminophen (Tylenol Tab*) 650 mg PO Q4H PRN PRN Reason: FEVER/PAIN Last Admin: 01/03/17 22:11 Dose: 650 mg Alprazolam (Xanax Tab*) 0.5 mg PO TID PRN PRN Reason: ANXIETY Last Admin: 01/04/17 08:55 Dose: 0.5 mg Desvenlafaxine Succinate (Pristiq (Nf)) 100 mg PO QAM [facility] Last Admin: 01/04/17 08:56 Dose: 100 mg Folic Acid (Folvite Tab*) 2 mg PO DAILY [facility] Last Admin: 01/04/17 08:54 Dose: 2 mg Mometasone Furoate (Asmanex 220 Mcg Mdi *) 1 puff INH QPM [facility] Last Admin: 01/03/17 21:45 Dose: Not Given Multivitamins/Minerals (Theragran/Minerals Tab*) 1 tab PO DAILY [facility] Last Admin: 01/04/17 08:56 Dose: 1 tab Ondansetron HCl (Zofran Inj*) 4 mg IV Q6H PRN PRN Reason: NAUSEA Pyridoxine HCl (Vitamin B6 Tab*) 25 mg PO DAILY [facility] Last Admin: 01/04/17 08:53 Dose: 25 mg Rivaroxaban (Xarelto (*)) 20 mg PO DAILY [facility] Last Admin: 01/04/17 08:54 Dose: 20 mg Vital Signs 01/03/17 01/03/17 01/03/17 18:26 19:50 20:01 Temperature 99.0 F 99.0 F 98 F Pulse Rate 64 64 84 Respiratory 16 18 18 Rate Blood Pressure 141/72 136/74 156/93 (mmHg) O2 Sat by Pulse 100 100 Oximetry 01/03/17 01/03/17 01/03/17 20:15 22:00 22:03 Temperature Pulse Rate Respiratory 22 22 18 Rate Blood Pressure (mmHg) O2 Sat by Pulse Oximetry 01/03/17 01/04/17 01/04/17 23:00 00:03 00:19 Temperature 97.7 F Pulse Rate 67 Respiratory 14 18 16 Rate Blood Pressure 136/73 (mmHg) O2 Sat by Pulse 100 Oximetry 01/04/17 01/04/17 01/04/17 01:00 02:00 02:45 Temperature 97.7 F Pulse Rate 68 Respiratory 14 6 18 Rate Blood Pressure 118/67 (mmHg) O2 Sat by Pulse 98 Oximetry 01/04/17 01/04/17 01/04/17 03:00 04:00 05:00 Temperature Pulse Rate Respiratory 13 21 27 Rate Blood Pressure (mmHg) O2 Sat by Pulse Oximetry 01/04/17 01/04/17 01/04/17 06:00 07:00 07:37 Temperature 98.6 F Pulse Rate 58 Respiratory 0 11 20 Rate Blood Pressure 128/56 (mmHg) O2 Sat by Pulse 100 Oximetry 01/04/17 01/04/17 01/04/17 08:00 08:55 09:00 Temperature Pulse Rate Respiratory 16 16 11 Rate Blood Pressure (mmHg) O2 Sat by Pulse Oximetry 01/04/17 01/04/17 01/04/17 10:00 10:55 11:13 Temperature Pulse Rate Respiratory 9 18 49 Rate Blood Pressure (mmHg) O2 Sat by Pulse Oximetry 01/04/17 01/04/17 11:59 12:00 Temperature 97.5 F Pulse Rate 60 Respiratory 20 9 Rate Blood Pressure 117/74 (mmHg) O2 Sat by Pulse 100 Oximetry Oxygen Devices in Use Now: None Appearance: Middle aged female sitting up on the edge of the bed, NAD Eyes: No Scleral Icterus Ears/Nose/Mouth/Throat: Mucous Membranes Moist Respiratory: Symmetrical Chest Expansion and Respiratory Effort, Clear to Auscultation Cardiovascular: NL Sounds; No Murmurs; No JVD, RRR, No Edema Abdominal: NL Sounds; No Tenderness; No Distention Extremities: No Clubbing, Cyanosis Skin: No Rash or Ulcers, No Nodules or Sclerosis Neurological: Alert and Oriented x 3 Result Diagrams: 01/03/17 16:55 01/04/17 04:55 Additional Lab and Data: Lab Results 01/03/17 01/03/17 01/03/17 Range/Units 16:55 16:55 16:55 WBC 7.9 (3.5-10.8) 10^3/ul RBC 3.74 L (4.0-5.4) 10^6/ul Hgb 11.9 L (12.0-16.0) g/dl Hct 35 (35-47) % MCV 95 (80-97) fL MCH 32 H (27-31) pg MCHC 34 (31-36) g/dl RDW 13 (10.5-15) % Plt Count 280 (150-450) 10^3/ul MPV 8 (7.4-10.4) um3 Neut % (Auto) 53.7 (38-83) % Lymph % (Auto) 30.4 (25-47) % Piatt % (Auto) 6.9 (1-9) % Eos % (Auto) 7.4 H (0-6) % Baso % (Auto) 1.6 (0-2) % Absolute Neuts (auto) 4.2 (1.5-7.7) 10^3/ul Absolute Lymphs (auto) 2.4 (1.0-4.8) 10^3/ul Absolute Monos (auto) 0.5 (0-0.8) 10^3/ul Absolute Eos (auto) 0.6 (0-0.6) 10^3/ul Absolute Basos (auto) 0.1 (0-0.2) 10^3/ul Absolute Nucleated RBC 0.01 10^3/ul Nucleated RBC % 0.1 INR (Anticoag Therapy) 1.05 (0.89-1.11) Sodium 138 (133-145) mmol/L Potassium 3.4 L (3.5-5.0) mmol/L Chloride 108 (101-111) mmol/L Carbon Dioxide 21 L (22-32) mmol/L Anion Gap 9 (2-11) mmol/L BUN 28 H (6-24) mg/dL Creatinine 1.41 H (0.51-0.95) mg/dL Est GFR ( Amer) 49.8 (>60) Est GFR (Non-Af Amer) 38.7 (>60) BUN/Creatinine Ratio 19.9 (8-20) Glucose 85 (70-100) mg/dL Lactic Acid (0.5-2.0) mmol/L Calcium 9.8 (8.6-10.3) mg/dL Magnesium 2.3 (1.9-2.7) mg/dL Total Bilirubin 0.50 (0.2-1.0) mg/dL AST 17 (13-39) U/L ALT 15 (7-52) U/L Alkaline Phosphatase 67 (34-104) U/L Troponin I 0.00 (<0.04) ng/mL Total Protein 7.7 (6.4-8.9) g/dL Albumin 4.1 (3.2-5.2) g/dL Globulin 3.6 (2-4) g/dL Albumin/Globulin Ratio 1.1 (1-3) TSH Pending 01/03/17 Range/Units 16:55 WBC (3.5-10.8) 10^3/ul RBC (4.0-5.4) 10^6/ul Hgb (12.0-16.0) g/dl Hct (35-47) % MCV (80-97) fL MCH (27-31) pg MCHC (31-36) g/dl RDW (10.5-15) % Plt Count (150-450) 10^3/ul MPV (7.4-10.4) um3 Neut % (Auto) (38-83) % Lymph % (Auto) (25-47) % Piatt % (Auto) (1-9) % Eos % (Auto) (0-6) % Baso % (Auto) (0-2) % Absolute Neuts (auto) (1.5-7.7) 10^3/ul Absolute Lymphs (auto) (1.0-4.8) 10^3/ul Absolute Monos (auto) (0-0.8) 10^3/ul Absolute Eos (auto) (0-0.6) 10^3/ul Absolute Basos (auto) (0-0.2) 10^3/ul Absolute Nucleated RBC 10^3/ul Nucleated RBC % INR (Anticoag Therapy) (0.89-1.11) Sodium (133-145) mmol/L Potassium (3.5-5.0) mmol/L Chloride (101-111) mmol/L Carbon Dioxide (22-32) mmol/L Anion Gap (2-11) mmol/L BUN (6-24) mg/dL Creatinine (0.51-0.95) mg/dL Est GFR ( Amer) (>60) Est GFR (Non-Af Amer) (>60) BUN/Creatinine Ratio (8-20) Glucose (70-100) mg/dL Lactic Acid 1.2 (0.5-2.0) mmol/L Calcium (8.6-10.3) mg/dL Magnesium (1.9-2.7) mg/dL Total Bilirubin (0.2-1.0) mg/dL AST (13-39) U/L ALT (7-52) U/L Alkaline Phosphatase (34-104) U/L Troponin I (<0.04) ng/mL Total Protein (6.4-8.9) g/dL Albumin (3.2-5.2) g/dL Globulin (2-4) g/dL Albumin/Globulin Ratio (1-3) TSH Microbiology and Other Data: Microbiology 01/04/17 03:47 Nasal Screen MRSA (PCR)(DARIEL) - Final Nasal Mrsa Negative Assess/Plan/Problems-Billing Ms Huang is a 56 yo F who has a h/o HTN, migraines, anxiety/depression and h/ o DVT/E who presented to the ER with c/o tinnitus and falling to the right. - Patient Problems (1) Tinnitus Current Visit: Yes Status: Acute Code(s): H93.19 - TINNITUS, UNSPECIFIED EAR SNOMED Code(s): 22300241 Comment: The patient continues to have tinnitus. MRI of the brain shows chronic ischemic white matter changes but no acute infarct. Will await further recommendations from neurology. She received xanax this AM and it did not help with her symptoms. (2) HTN (hypertension) Current Visit: Yes Status: Acute Code(s): I10 - ESSENTIAL (PRIMARY) HYPERTENSION SNOMED Code(s): 86841327 Comment: The patient's BP is excellent off her usual home medications. Continue to monitor for now. (3) History of deep venous thrombosis or pulmonary embolus Current Visit: Yes Status: Acute Code(s): BJE2252 - SNOMED Code(s): 755421928 Comment: Continue xarelto. (4) Anxiety and depression Current Visit: Yes Status: Acute Code(s): F41.8 - OTHER SPECIFIED ANXIETY DISORDERS SNOMED Code(s): 736713787 Comment: Continue pristiq and xanax. (5) DVT prophylaxis Current Visit: Yes Status: Acute Code(s): TCE7956 - SNOMED Code(s): 784141111 Comment: sherron (6) Full code status Current Visit: Yes Status: Acute Code(s): Z78.9 - OTHER SPECIFIED HEALTH STATUS SNOMED Code(s): 251838042
--- NOTE | 2017-01-04 14:34 | ECHO ---
Patient: JERALD NOYOLA [facility] Rec#: [id number] : 1960 Date: 01/04/2017 Age: 56y Height: 175.26 cm / 69.0 in Weight: 103.87 kg / 228.9 lbs Sex: F BSA: 2.19 Room#: 453 Admit Date#: 01/04/2017 Type: Inpatient Referring: Zayra Minor NP Reading: Darshan Fraire DO Teacher Drama: Zayra Carmen RDCS CC: Jose R Viramontes MD CC: Harpal Chakraborty MD Transthoracic Echocardiogram Indication: CVA BP: 118/67 HR: 63 Rhythm: NSR Findings History: HTN, prior DVT, prior PE, asthma, bipolar, PTSD, HLD, migraines, former smoker, former ETOH use. Technical Comments: The study quality is good. The study is technically limited due to patient body habitus. Completed at 1425. Left Ventricle: The left ventricular chamber size is normal. There is no left ventricular hypertrophy. Global left ventricular wall motion and contractility are within normal limits. There is normal left ventricular systolic function. The estimated ejection fraction is 55-60%. Abnormal left ventricular diastolic function is observed. Left Atrium: The left atrium is mildly dilated. Right Ventricle: The right ventricular chamber size and systolic function are within normal limits. Right Atrium: The right atrium is mildly dilated. A patent foramen ovale is demonstrated by agitated contrast. Aortic Valve: The aortic valve is trileaflet. There is no evidence of aortic regurgitation. There is no evidence of aortic stenosis. Mitral Valve: The mitral valve leaflets appear normal. There is a trace of mitral regurgitation. There is no evidence of mitral stenosis. Tricuspid Valve: The tricuspid valve leaflets are normal. There is trace tricuspid regurgitation. No pulmonary hypertension is noted. There is no tricuspid stenosis. Pulmonic Valve: The pulmonic valve appears normal. There is a trace pulmonic regurgitation. There is no pulmonic stenosis. Pericardium: There is no significant pericardial effusion. Aorta: There is no dilatation of the ascending aorta. There is no dilatation of the aortic arch. There is no dilation of the aortic root. Pulmonary Artery: The main pulmonary artery is not well visualized. Venous: The inferior vena cava appears normal in size. There is a greater than 50% respiratory change in the inferior vena cava dimension. Contrast: Normal saline was used as contrast for the bubble study. Image 1 with normal respirations. Image 2 with Valsalva Maneuver. Intravenous contrast was used to help determine presence of intracardiac shunting. Conclusions The left ventricular chamber size is normal. There is no left ventricular hypertrophy. Global left ventricular wall motion and contractility are within normal limits. There is normal left ventricular systolic function. The estimated ejection fraction is 55-60%. The right ventricular chamber size and systolic function are within normal limits. No significant valvular abnormalities are noted. Agitated saline ("bubble study") was negative at rest. Bubble study was repeated with valsalva and several bubbles were noted in the left sided cardiac chambers. This is mostly commonly due to an interatrial septal defect (likely patent foramen ovale) No prior studies available for comparison at time of interpretation. Measurements Name Value Normal Range RVIDd (AP) 2D 2.8 cm (0.9 - 2.6) RVDdMajor (2D) 5.1 cm (2.2 - 4.4) RVAW (2D) 0.63 cm (0.2 - 0.5) RAd ISD 4CH 4.9 cm (3.4 - 4.9) RA (A4C)W 4.7 cm (2.9 - 4.6) IVSd (2D) 0.9 cm (0.6 - 1) LVPWd (2D) 0.9 cm (0.6 - 1) LVIDd (2D) 4.8 cm (3.6 - 5.4) LVIDs (2D) 3.6 cm - LV FS (2D) 26 % (25 - 45) Aortic Annulus 2 cm (1.4 - 2.6) Ao root diameter (2D) 2.9 cm (2.1 - 3.5) Ascending Ao 2.9 cm (2.1 - 3.4) Aortic arch 2.6 cm (1.8 - 3.4) LA dimension (AP) 2D 4 cm (2.3 - 3.8) LAd ISD 4CH 5.1 cm (2.9 - 5.3) LA ISD 4CH W 4.2 cm (2.5 - 4.5) Name Value Normal Range LA ESV SP 4CH (A/L) 80 ml - Name Value Normal Range MV E-wave Vmax 0.68 m/sec - MV deceleration time 199.79 msec - MV A-wave Vmax 0.52 m/sec - MV E:A ratio 1.31 ratio - LV septal e' Vmax 0.08 m/sec - LV lateral e' Vmax 0.07 m/sec - LV E:e' septal ratio 8.5 ratio - LV E:e' lateral ratio 9.7 ratio - Name Value Normal Range AV Vmax 1.81 m/sec - AV VTI 34.4 cm - AV peak gradient 13.11 mmHg - AV mean gradient 7.47 mmHg - LVOT Vmax 1.4 m/sec - LVOT VTI 27.12 cm - LVOT peak gradient 8.37 mmHg - LVOT mean gradient 3.85 mmHg - [place] Vmax 1 m/sec - Name Value Normal Range TR Vmax 2.2 m/sec - TR peak gradient 19 mmHg - RAP 3 mmHg - RVSP 22 mmHg - IVC diameter 1.4 cm - Name Value Normal Range PV Vmax 0.96 m/sec - PV peak gradient 3.72 mmHg -
[2017-01-04 18:15] VITALS: BP 142/80
--- NOTE | 2017-01-05 00:49 | CONS ---
NEUROLOGY FOLLOWUP: DATE OF FOLLOWUP: 01/04/17 HOSPITALIST: Dr. Lebron. CHIEF COMPLAINT: Dizziness, tinnitus. INTERVAL HISTORY: Since yesterday, Chayo feels a little better. She still gets the ringing in h er right ear and feels a little bit imbalanced, she feels that she is tilting to the right when it i s more profound. She has no significant change in hearing otherwise. She has not had any nausea. She notes no improvement after taking alprazolam. MEDICATIONS: Reviewed and she is on: 1. Xarelto 20 mg p.o. daily. 2. Vitamin B6 25 mg p.o. daily. 3. Ondansetron 4 mg IV q.6 hours p.r.n. nausea. 4. Alprazolam 0.5 mg p.o. t.i.d. p.r.n. anxiety or dizziness. 5. Pristiq 100 mg p.o. q.a.m. 6. Aspirin 324 mg given in the emergency room. PHYSICAL EXAMINATION: She is well hydrated. Temperature 97.5, blood pressure most recently 117/74, heart rate 66 and regular. Neurologic exam: Pupils react equally from 4 to 3 mm. Eye movements are normal other than a few be ats of nystagmus in right gaze only. Facial musculature is symmetric. Speech is clear without dysa rthria. Hearing is intact bilaterally. Simpson test lateralizes to the right. DIAGNOSTIC STUDIES/LAB DATA: Laboratory studies include an MRI of the brain, which I reviewed the i mages of. 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 Other than that, some nonspecific white matter changes consistent with chronic isch emic changes. She had an MR angiogram of the brain and a carotid ultrasound of the neck, both of wh ich do not show any large vessel disease. Transthoracic echocardiogram was normal. Other laboratory data notable for a normal CBC other than borderline hemoglobin of 11.9, elevated se dimentation rate yesterday at 72. Chemistry is notable for creatinine up to 1.5 today, was 1.41 yes terday. Rest of the chemistry panel is unremarkable. Homocystine level was modestly elevated at 18 . TSH normal at 2.02. Cholesterol this morning was 209, LDL 133. IMPRESSION AND PLAN: Impression is that of an episode of vestibular neuronitis. She does have a rem ote small vessel infarction on her brain CT, but nothing acute. I do not think her current symptoms are cerebrovascular in origin, particularly with the hearing symptoms. I think she can be discharged on her usual medications plus benzodiazepine or antihistamine for her dizziness. Taking an aspirin a day I think is reasonable based on her asymptomatic cerebellar infar ction on CT scan, but control of vascular risk factors is most important. Her blood pressure is cur rently under control. I have told her that I think she has vestibular neuronitis and explained that it is probably a viral inflammation of the vestibular nerve. I told her that it usually resolves i n a few days to sometimes several weeks. I told her if she is still having symptoms in a couple of weeks, to call my office and I will see her in followup. [id number]/[facility] #: [id number]
--- NOTE | 2017-01-05 14:07 | DS ---
CC: Dr. Viramontes. DISCHARGE SUMMARY: DATE OF ADMISSION: 01/03/17 DATE OF DISCHARGE: 01/04/17 PRIMARY CARE PROVIDER: Dr. Viramontes. PRINCIPAL DIAGNOSIS: Vestibular neuronitis. SECONDARY DIAGNOSES: 1. Hypertension. 2. Depression/anxiety. 3. History of deep venous thrombosis and pulmonary embolism. DISCHARGE MEDICATIONS: 1. Ibuprofen 400 mg p.o. t.i.d. p.r.n. pain. 2. Folic acid 2 mg p.o. daily. 3. Pristiq 100 mg p.o. daily. 4. Vitamin B12 100 mcg p.o. daily 5. [place] 5/325 one tablet p.o. q.8 hours p.r.n. pain. 6. Xanax 0.5 mg p.o. t.i.d., p.r.n. anxiety. 7. Flovent 1 puff inhaled twice daily 8. Albuterol 1 puff inhaled q.6 hours p.r.n. shortness of breath. 9. Multivitamin 1 tab p.o. daily. 10. Xarelto 20 mg p.o. daily. 11. Sumatriptan 25 mg p.o. daily p.r.n., migraine. 12. Ambien 10 mg p.o. q. h.s. 13. Verapamil 180 mg p.o. daily. 14. Triamterene/hydrochlorothiazide 1 cap p.o. daily. 15. Meclizine 25 mg p.o. q.8 hours p.r.n. dizziness. (new) 16. Aspirin 81 mg p.o. daily. (new) HOSPITAL COURSE: Ms. Huang is a 56-year-old female who presented to the emergency room on with complaints of the sound of metal clapping in her ears and feeling that she was falling to th e right. The patient was admitted for a possible CVA. The patient was found to have an old lacunar infarct on her CT scan. Because of this and her neurologic symptoms, the decision was made to have the patient undergo MRI of the brain, which revealed chronic ischemic white matter changes and old l acunar infarct. No acute infarct was identified. She also underwent an MRI of the brain, which did not reveal any aneurysms or stenosis in the intracranial vasculature. Ultimately it was felt that the patient likely has vestibular neuronitis possibly related to a recent viral infection. The aimee ent was recommended to continue to take the Xanax as needed for anxiety and the tinnitus. Hopefully , with time the tinnitus will lessen. The patient has also been prescribed meclizine for a feeling of falling to the right and dizziness. Because of the old lacunar infract seen on the CT scan and MR I, it was recommended that the patient was started on baby aspirin 81 mg daily. At this point, the patient is stable for discharge home. FOLLOWUP CONCERNS: The patient is being discharged home today, 01/04/17. ACTIVITY LEVEL: As tolerated. DIET: Low fat. CONDITION ON DISCHARGE: Stable. TIME SPENT: 35 minutes were spent discharging this patient. [id number]/[facility] #: [id number]
== END 2017-01-04 18:15 | disposition home or self-care (01) ==
LOC: ED 15:50 → INTOOBSV 18:25 → MEDTELE 18:25
PROVIDERS: ADMIT Internal Medicine; ATTEND Hospitalist
DX: H81.20 Vestibular neuronitis, unspecified ear (principal); I12.9 Hypertensive chronic kidney disease with stage 1 through stage 4 chronic kidney disease, or unspecified chronic kidney disease; N18.9 Chronic kidney disease, unspecified; F32.9 Major depressive disorder, single episode, unspecified; F41.9 Anxiety disorder, unspecified; E78.5 Hyperlipidemia, unspecified; Z86.711 Personal history of pulmonary embolism; Z86.718 Personal history of other venous thrombosis and embolism; Z79.01 Long term (current) use of anticoagulants; Z79.899 Other long term (current) drug therapy; F43.10 Post-traumatic stress disorder, unspecified; Z87.891 Personal history of nicotine dependence; Z86.73 Personal history of transient ischemic attack (TIA), and cerebral infarction without residual deficits; R51 Headache; R42 Dizziness and giddiness
CPT/HCPCS: 36415; 70450; 70544; 70551; 80048; 80053; 80061; 81003; 83605; 83735; 84443; 84484; 85025; 85610; 85652; 85730; 87641; 93005; 93306; 93880; A9270-GY; G0378

== ENCOUNTER 2017-12-12 07:07 | Day surgery (SDC) | payer MEDICARE, MEDICAID ==
[~2017-12-12 07:07] MED LIST: Buffered Lidocaine 0.9% SYRIN* 5 ML/SYR SYRINGE INTRADERM ONE
[2017-12-12] MEDS ORDERED: Buffered Lidocaine 0.9% SYRIN* 5 ML/SYR SYRINGE ONE (07:22)
[2017-12-12] MEDS ORDERED: ceFAZolin 2 GM PREMIX (*) 2 GM/50 ML BAG IVPB ONE (07:22)
[2017-12-12] MEDS ORDERED: Bupivacaine 0.25% W/EPI* 10 ML SDV ONE (08:26)
[2017-12-12] MEDS ORDERED: Lidocaine 1% MPF wEPI 200,000* 30 ML SDV ONE (08:26)
[2017-12-12] MEDS ORDERED: fentaNYL* 50 MCG/ML 2 ML VIAL (100 MCG VIAL) ONE ×4 (08:33→10:35)
[2017-12-12] MEDS ORDERED: Midazolam* 1 MG/ML 2 ML VIAL (2 MG) ONE (08:33)
[2017-12-12] MEDS ORDERED: Propofol* 10 MG/ML 20 ML BTL IV PUSH ONE (08:35)
[2017-12-12] MEDS ORDERED: oxyCODONE/Acetamin 5/325 MG* TAB PO PRN (08:42)
[2017-12-12] MEDS ORDERED: PROCHLORPERAZINE INJ 5 MG/ML 2 ML VIAL IV PRN (08:42)
[2017-12-12] MEDS ORDERED: HYDROmorphone INJ* 0.5 MG/0.5 ML SYRINGE IV PRN (08:42)
[2017-12-12] MEDS ORDERED: Ondansetron INJ* 2 MG/ML VIAL IV PRN (08:42)
[2017-12-12] MEDS ORDERED: Acetaminophen TAB* 325 MG PO PRN (08:42)
[2017-12-12] MEDS ORDERED: Naloxone* 0.4 MG/ML 1 ML VIAL IV PRN (08:42)
[2017-12-12] MEDS ORDERED: Ondansetron INJ* 2 MG/ML VIAL ONE (09:16)
[2017-12-12] MEDS ORDERED: Lidocaine 2% PF * 5 ML VIAL ONE (09:16)
[2017-12-12] MEDS ORDERED: Ketorolac INJ* 30 MG/ML 1 ML VIAL ONE (09:16)
[2017-12-12] MEDS ORDERED: Dexamethasone IV* 4 MG/ML 1 ML (4 MG) ONE (09:16)
[2017-12-12] MEDS ORDERED: Bupivacaine 0.5% PF 10 ML VIAL INJ ONE (09:47)
[2017-12-12] MEDS: fentaNYL* 50 MCG/ML 2 ML VIAL (100 MCG VIAL) IV PRN ×4 (10:17→11:04)
[2017-12-12] MEDS ORDERED: oxyCODONE TAB* 5 MG TAB ONE ×2 (10:20→10:35)
[2017-12-12] MEDS: oxyCODONE TAB* 5 MG TAB PO PRN ×2 (10:21→10:38)
[2017-12-12 11:25] VITALS: BP 141/91
--- NOTE | 2017-12-12 14:24 | OP ---
Operative Report - Blank - Operative Report Date of Operation: 12/12/17 Note: PATIENT: Chayo Huang DATE OF : 1960 DATE OF SURGERY: 12/12/2017 SURGEON: Krish Reyes MD TRANSPORTATION DISPATCHER: RONALDO Rowley, whos assistance was necessary for positioning, retraction, help with instrumentation, and closure. ANESTHESIOLOGIST: Dr. Rawls PREOPERATIVE DIAGNOSIS: Right knee medial meniscus tear POSTOPERATIVE DIAGNOSIS: Right knee medial meniscus tear OPERATION: Right knee arthroscopy with partial medial meniscectomy ANESTHESIA: GETA IMPLANTS: none TOURNIQUET TIME: none SPECIMENS: None ESTIMATED BLOOD LOSS: minimal COMPLICATIONS: none STATUS: Stable from the operating room to the recovery room and then home. INDICATIONS FOR PROCEDURE: Chayo has had persistent, limiting right knee pain from a meniscus tear that has been refractory to non-operative treatment. Both operative and non operative treatment alternatives were reviewed. Further, the nature and risks of surgery were reviewed in careful detail, in the office as well as the pre- operative holding area. Our discussions regarding the risks of surgery included , but were not limited to, infection, wound problems, nerve injury, neuroma, RSD , persistent symptoms, blood clot, failure of the surgery, need for further surgery, development of arthritis, and even the remote chance of catastrophic complication, including loss of limb. DESCRIPTION OF PROCEDURE: The patient was seen in the preoperative holding unit and informed written consent was obtained. The appropriate extremity was marked. The patient was then brought to the operating room and carefully positioned on the operating room table. Anesthesia was induced. All bony prominences were padded with great care. A well-padded thigh tourniquet was placed. A chlorhexidine based pre- scrub was performed followed by a chloraprep prep and drape in standard sterile fashion. A surgical safety pause was then conducted in which we confirmed the appropriate patient, extremity, planned procedure, availability of equipment, indication and administration of prophylactic antibiotics, and DVT prophylaxis in the form of a compression boot on the non-surgical extremity. I began by making a standard anterolateral knee arthroscopy portal. The arthroscope was inserted into the knee joint and a diagnostic arthroscopy was performed. She had grade 2-3 changes in all three compartments. Then under direct visualization an anteromedial arthroscopy portal was made. I introduced a probe into the joint. This was used to probe the posterior horn, medial meniscus tear. A biter and oscillating shaver were used to debride the meniscal tear back to a stable rim. I then performed an extensive irrigation of the joint while running the shaver in each of the knee compartments to remove any loose debris. Once thoroughly irrigated and debrided, I suctioned the fluid out of the joint. The arthroscopy portals were then closed utilizing 3-0 nylon. A sterile dressing was then applied. The patient was then awakened from anesthesia and transferred to the recovery room in stable condition. There were no complications. All needle and sponge counts were correct at the end of the case. ATTESTATION: I attest I was present and scrubbed and performed the critical portions of the procedure myself. POSTOPERATIVE PLAN: The plan is for weight-bearing as tolerated with crutches. She will retstart her Xarelto tomorrow morning. Follow-up will be in 2 weeks for likely suture removal.
== END 2017-12-12 11:59 | disposition home or self-care (01) ==
LOC: OR 07:07
PROVIDERS: ATTEND Orthopaedic Surgery
DX: S83.221A Peripheral tear of medial meniscus, current injury, right knee, initial encounter (principal); M25.461 Effusion, right knee; Z86.718 Personal history of other venous thrombosis and embolism; Z79.01 Long term (current) use of anticoagulants; Z86.711 Personal history of pulmonary embolism; Q79.6 Ehlers-Danlos syndromes; E78.2 Mixed hyperlipidemia; F32.9 Major depressive disorder, single episode, unspecified; I10 Essential (primary) hypertension; Z87.891 Personal history of nicotine dependence; X58.XXXA Exposure to other specified factors, initial encounter; Y92.9 Unspecified place or not applicable
CPT/HCPCS: A9270-GY; J0690; J1100; J1885; J2001; J2250; J2405; J2704; J3010

== ENCOUNTER 2018-03-06 06:05 | Day surgery (SDC) | payer MEDICARE, MEDICAID ==
[~2018-03-06 06:05] MED LIST changes: +Famotidine IV* 10 MG/ML 2 ML (20 mg) IV ONE
[2018-03-06] MEDS ORDERED: ceFAZolin 2 GM in NS PREMIX(*) 2 GM/100 ML BAG IVPB ONE (06:36)
[2018-03-06] MEDS ORDERED: Famotidine IV* 10 MG/ML 2 ML (20 mg) ONE (06:36)
[2018-03-06] MEDS ORDERED: Bupivacaine 0.25% SDV* 30 ML ONE (06:53)
[2018-03-06] MEDS ORDERED: fentaNYL* 50 MCG/ML 2 ML VIAL (100 MCG VIAL) ONE ×4 (07:06→08:53)
[2018-03-06] MEDS ORDERED: Midazolam* 1 MG/ML 5 ML VIAL (5 MG) ONE (07:06)
[2018-03-06] MEDS ORDERED: HYDROcodone/ACETAMIN 5-325 MG* 1 TAB PO PRN (07:24)
[2018-03-06] MEDS ORDERED: DiMENhydriNATE IV* 50 MG/ML VIAL IV PUSH PRN (07:24)
[2018-03-06] MEDS ORDERED: Naloxone* 0.4 MG/ML 1 ML VIAL IV PRN (07:24)
[2018-03-06] MEDS ORDERED: oxyCODONE/Acetamin 5/325 MG* TAB PO PRN (07:24)
[2018-03-06] MEDS ORDERED: Propofol* 10 MG/ML 20 ML BTL IV PUSH ONE (07:30)
[2018-03-06] MEDS ORDERED: Lidocaine 2% PF * 5 ML VIAL ONE (07:30)
[2018-03-06] MEDS ORDERED: Ketorolac INJ* 30 MG/ML 1 ML VIAL ONE (07:40)
[2018-03-06] MEDS ORDERED: Ondansetron INJ* 2 MG/ML VIAL ONE (08:08)
[2018-03-06] MEDS: fentaNYL* 50 MCG/ML 2 ML VIAL (100 MCG VIAL) IV PRN ×4 (08:45→09:00)
[2018-03-06] MEDS ORDERED: oxyCODONE/Acetamin 5/325 MG* TAB ONE (09:09)
[2018-03-06] MEDS ORDERED: Morphine INJ* 2 MG/ML 1 ML SYRINGE (TWO MG - NEW SYRINGE VERSION) ONE ×2 (09:09→09:35)
[2018-03-06] MEDS: Morphine INJ* 2 MG/ML 1 ML SYRINGE (TWO MG - NEW SYRINGE VERSION) IV PRN ×2 (09:11→09:36)
[2018-03-06 11:03] VITALS: BP 128/80
--- NOTE | 2018-03-06 13:41 | OP ---
Operative Report - Blank - Operative Report Date of Operation: 03/06/18 Note: PATIENT: Chayo Huang DATE OF : 1960 DATE OF SURGERY: 03/06/2018 SURGEON: Krish Reyes MD PROGRAM DEVELOPMENT SPECIALIST: RONALDO Rowley, whos assistance was necessary for positioning, retraction, help with instrumentation, and closure. ANESTHESIOLOGIST: Dr. Kennedy PREOPERATIVE DIAGNOSIS: Left knee medial and lateral meniscus tears POSTOPERATIVE DIAGNOSIS: Left knee medial and lateral meniscus tears OPERATION: Left knee arthroscopy with partial medial and lateral meniscectomies ANESTHESIA: LMA IMPLANTS: none TOURNIQUET TIME: none SPECIMENS: None ESTIMATED BLOOD LOSS: minimal COMPLICATIONS: none STATUS: Stable from the operating room to the recovery room and then home. INDICATIONS FOR PROCEDURE: Chayo has had persistent pain from her left knee with meniscal tears. Both operative and non operative treatment alternatives were reviewed. Further, the nature and risks of surgery were reviewed in careful detail, in the office as well as the pre-operative holding area. Our discussions regarding the risks of surgery included, but were not limited to, infection, wound problems, nerve injury, neuroma, RSD, persistent symptoms, blood clot, failure of the surgery, need for further surgery, development of arthritis, and even the remote chance of catastrophic complication, including loss of limb. DESCRIPTION OF PROCEDURE: The patient was seen in the preoperative holding unit and informed written consent was obtained. The appropriate extremity was marked. The patient was then brought to the operating room and carefully positioned on the operating room table. Anesthesia was induced. All bony prominences were padded with great care. A well-padded thigh tourniquet was placed. A chlorhexidine based pre- scrub was performed followed by a chloraprep prep and drape in standard sterile fashion. A surgical safety pause was then conducted in which we confirmed the appropriate patient, extremity, planned procedure, availability of equipment, indication and administration of prophylactic antibiotics, and DVT prophylaxis in the form of a compression boot on the non-surgical extremity. I insufflated the joint by injecting sterile saline. I began by making a standard anterolateral knee arthroscopy portal. The arthroscope was inserted into the knee joint and a diagnostic arthroscopy was performed. There were grade 2-3 changes in the medial and patellofemoral compartments. Under direct visualization an anteromedial arthroscopy portal was made. I introduced a probe into the joint. This was used to probe the posterior medial meniscus tear and anterior lateral mensicus tears. A biter and oscillating shaver were used to debride the medial meniscal tear back to a stable rim. I debrided the small amount of loose and frayed meniscus from the anterior lateral meniscus. I then performed an extensive irrigation of the joint while running the shaver in each of the knee compartments to remove any loose debris. Once thoroughly irrigated and debrided, I suctioned the fluid out of the joint. The arthroscopy portals were then closed utilizing 3-0 nylon. A sterile dressing was then applied. The patient was then awakened from anesthesia and transferred to the recovery room in stable condition. There were no complications. All needle and sponge counts were correct at the end of the case. ATTESTATION: I attest I was present and scrubbed and performed the critical portions of the procedure myself. POSTOPERATIVE PLAN: The plan is for weight-bearing as tolerated with crutches. She will restart her Xarelto tomorrow. Follow-up will be in 2 weeks for likely suture removal.
== END 2018-03-06 11:30 | disposition home or self-care (01) ==
LOC: OR 06:05
PROVIDERS: ATTEND Orthopaedic Surgery
DX: S83.222A Peripheral tear of medial meniscus, current injury, left knee, initial encounter (principal); S83.262A Peripheral tear of lateral meniscus, current injury, left knee, initial encounter; M25.462 Effusion, left knee; Z86.718 Personal history of other venous thrombosis and embolism; Z79.01 Long term (current) use of anticoagulants; Z87.891 Personal history of nicotine dependence; I10 Essential (primary) hypertension; E78.5 Hyperlipidemia, unspecified; F41.8 Other specified anxiety disorders; Q79.6 Ehlers-Danlos syndromes; X58.XXXA Exposure to other specified factors, initial encounter; Y92.9 Unspecified place or not applicable
CPT/HCPCS: A9270-GY; J0690; J1885; J2250; J2270; J2405; J2704; J3010

== ENCOUNTER 2018-03-10 18:43 | Emergency (ER) | payer MEDICARE, MEDICAID ==
--- OUTSIDE RECORDS SUMMARY | 2018-03-10 19:02 | XMS REPORT ---
:1960 External Reference #:[id number] Author Organization [facility] Address [address] [place] [address] Phone [phone] Care Team Providers Name Role Phone Jose R Viramontes MD Primary Care Physician Unavailable Payers Type Date Identification Numbers Payment Provider Subscriber Medicare Primary Effective: Policy Number: Medicare Chayo Banerjee 2011 [id number] Sal PayID: [id number] [address] [place] [address] Medigap Part B Effective: 2011 Policy Number: Medicaid Chayo Huang [id number] PayID: [id number] [address] [place] [address] Problems Date Description Provider Status Onset: 04/10/2016 Homocystinemia Madhavi Pina M.D.,FACP Onset: 04/03/2016 Deep venous thrombosis of lower Jose R Viramontes Active extremity M.Gael,FACP Note: on chronic DAOC Onset: 11/16/2011 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 Active Onset: 03/24/2014 Allergic asthma Jose R Viramontes, Active Machelle,FACP Onset: 09/18/2016 Mixed hyperlipidemia Jose R Viramontes Active Machelle,FACP Onset: 10/09/2016 Ex-smoker Jose R Viramontes Active Machelle,FACP Onset: 02/24/2018 Current tear of lateral Krish Reyes MD Active cartilage AND/OR meniscus of knee Onset: 10/14/2017 Current tear of medial cartilage Krish Reyes MD Active AND/OR meniscus of knee Onset: 10/14/2017 Knee joint effusion Krish Reyes MD Active Onset: 02/17/2014 Pulmonary embolism Jose R Viramontes, Resolved Machelle,FACP Resolved: 04/03/2016 Family History Date Family Member(s) Problem(s) Comments Father Stroke Mother Cancer kidney Mother due to NM () Siblings 4 3 now First Brother due to Cancer, Bladder () Social History Type Date Description Comments Marital Status Single Occupation Currently Working [employer] Current leave of absence (October 2017) Cigarette Use Former Cigarette Smoker Began 15 years ago, smoked 1/2 PPD for about 10 years, Cigarette Use Quit - Age 51 ETOH Use 02/07/2016 Denies alcohol use ETOH Use 10/25/2015 Has consumed alcohol in the sober 3 yrs past Smoking Patient is a former smoker Recreational Drug Use Denies Drug Use Recreational Drug Use Formerly used Cocaine regularly Allergies, Adverse Reactions, Alerts Date Description Reaction Status Severity Comments 11/16/2011 Cortisone vomiting, faint active Medications Medication Date Status Form Strength Qnty SIG Indications Ordering Provider Diclofenac 01/24/ Active Gel 3% 100gm apply to M17.0 Jose R Love 2017 knees up to Gael Viramontes, 4 times a M.D.,FACP day. Naproxen DR 01/24/ Active Tablets DR 500mg 60tab take 1 tab Tami 2017 s every 12 Cotton, hours as M.D. needed for pain Oxycodone HCL 12/12/ Active Tablets 5mg 15tab 1 tabs by Krish 2018 s mouth every Eric, 4-6 hours as MD needed Verapamil HCL 12/09/ Active Tablets ER 180mg 30tab take 1 Jose R ER 2018 s tablet by Gael Viramontes, mouth every M.D.,FACP morning Crutch Set 10/14/ Active Misc 1Pair use as M25.561 Nancy 2017 needed right Varn, N.P. knee pain Atorvastatin 01/24/ Active Tablets 10mg 90tab take 1 I63.9 Jose R Calcium 2016 s tablet by Gael Viramontes, mouth at M.D.,FACP bedtime Aspirin Adult 01/04/ Active Tablets DR 81mg 1 by mouth Other Low Dose 2017 every day Ordering Provider Pristiq 07/17/ Active Tablets ER 100mg 90tab Take 1 Jose R 2016 24HR s Tablet By Gael Viramontes, Mouth Every M.D.,FACP Morning Xarelto 04/10/ Active Tablets 20mg 90tab take 1 Jose R 2015 s tablet by Gael Viramontes, mouth every M.D.,FACP day Flovent HFA 03/24/ Active Aerosol 110mcg/Ac 1mon 2 puff twice 493.92 Jose R 2013 t a day Gael Viramontes M.D.,FACP Proair HFA 10/28/ Active Aerosol 108(90Bas 1unit 2 puffs po Jose R 2012 e) s q4h prn Gael Viramontes, mcg/Act M.D.,FACP Alprazolam / Active Tablets 1mg 90tab 1 tablets by Santos 0000 s mouth three Arslan, CDL B DRIVER times a day as needed Zolpidem / Active Tablets 10mg 30tab 1/2-1 tab by Jose R Tartrate 0000 s mouth johnathon Viramontes, night at M.D.,FACP bedtime as needed Sumatriptan / Active Solution 20mg/Act 1unit 1 spray in Jose R 0000 s nostril as Gael Viramontes, needed for M.D.,FACP migraine Multi Vitamin / Active Tablets 1 by mouth Unknown Daily 0000 every day Triamterene/Hy / Active Tablets 37.5-25mg 30tab Take 1 Jose R drochlorothiaz 0000 s Tablet By Gael Viramontes, stephy Mouth Every M.D.,FACP Day Prednisone 06/06/ Hx Tablets 10mg 28tab 4 tabs every Jose R 2016 day for 4 D. Ana M, 10/31/ days, then M.D.,FACP 2018 reduce by 1 tab every 2 days until finished Cheratussin ac 06/06/ Hx Syrup 100-10mg/ 473ml 10 Jose R 2017 - 5ML milliliters DFani Viramontes, 10/31/ by mouth M.D.,FACP 2018 four times a day as needed Doxycycline 06/06/ Hx Tablets 100mg 14tab 1 by mouth Jose R Hyclate 2016 twice a day DFani Viramontes, 06/13/ M.D.,FACP 2018 Amoxicillin 04/25/ Hx Tablets 500mg 30tab 1 by mouth J06.9 Michael Broussard 2016 three times Donna, 06/06/ a day M.D. 2017 Rosuvastatin 01/22/ Hx Tablets 5mg 90tab 1 by mouth I63.9 Jose R Calcium 2016 - every night Gael Viramontes, 01/24/ at bedtime M.Shannan.,FACP 2017 Meclizine HCL 01/04/ Hx Tablets 25mg 30tab 1 tablet Other 2016 every 8 Ordering 10/31/ hours as Provider 2018 needed for vertigo Vitamin B12 10/11/ Hx Tablets 100mcg 90tab 2 by mouth Jose R 2016 every day Gael Viramontes, 10/31/ M.D.,FACP 2018 Pyridoxine HCL 10/11/ Hx Tablets 25mg 1 po qd Jose R 2016 - Gael Viramontes, 10/31/ M.D.,FACP 2018 Folic Acid 09/18/ Hx Tablets 1mg 90tab 2 by mouth Jose R 2016 every day Gael Viramontes, 10/31/ M.D.,FACP 2018 Xarelto 04/03/ Hx Tablets 15mg 60tab 1 tab in the Jose R2015 morning and Gael Viramontes, in the M.D.,FACP 2016 evening [place] 03/30/ Hx Tablets 5-325mg 30tab 1 by mouth Jose R 2015 every 12 D. Ana M, 06/06/ hours as M.D.,FACP 2017 needed Pristiq 02/06/ Hx Tablets ER 50mg 30tab Take 1 Jose R 2015 - 24HR s Tablet By Gael Viramontes, 07/17/ Mouth Every M.D.,FACP 2017 Day Gabapentin 02/02/ Hx Capsules 300mg 180ca take 1 by G57.51 Jose R 2016 - ps mouth 3 Gael Viramontes, 01/22/ times a day M.D.,FACP 2017 during day plus 3 tabs every night at bedtime Nucynta 01/19/ Hx Tablets 50mg 30tab 1-2 tabs po G57.51 Duane 2016 - s tid prn Harvey 02/06/ M.D. 2016 Tramadol HCL 01/12/ Hx Tablets 50mg 42tab two times a G57.51 Duane 2015 - s day as Harvey 01/19/ needed M.D. 2016 [place] 11/27/ Hx Tablets 5-325mg 40tab 1 tablets by Leona 2015 - s mouth every Bordoni, 01/13/ 4-6 hours as CDL B DRIVER 2016 needed for pain. Viibryd 09/19/ Hx Tablets 40mg 30tab take 1 tab F33.2 Jose R 2015 - s every in the Gael Viramontes, 02/06/ morning M.D.,FACP 2016 Escitalopram 08/08/ Hx Tablets 20mg 30tab 1/2 tab qd F33.2 Jose R Tony 2015 - s for 2 wks Gael Viramontes, 10/24/ then stop M.D.,FACP 2016 Lexapro 06/23/ Hx Tablets 20mg 90tab 1 by mouth Jose R 2015 - s every day Gael Viramontes, 08/08/ M.D.,FACP 2016 Xarelto 02/22/ Hx Tablets 15mg 90tab PO bid for 2 415.19 Jose R 2014 - s more weeks Gael Viramontes, 03/08/ M.D.,FACP 2014 Xarelto 02/22/ Hx Tablets 20mg 30tab 1 by mouth 415.19 Jose R 2014 - s every day Gael Viramontes, M.D.,FACP 2015 Ketoconazole 01/05/ Hx Cream 2% 50gm apply bid x 110.8 Rox 2013 - 2 weeks Greg 02/22/ M.D. 2014 Levaquin 12/01/ Hx Tablets 500mg 7tabs 1 po qd x 7 493.92 Jose R 2012 - days Gael Viramontes, 12/08/ Machelle,FACP 2012 Prednisone 12/01/ Hx Tablets 20mg 20tab 2 qd x 5 493.92 Jose R 2012 - s days, then Gael Viramontes, 12/11/ reduce by Machelle,FACP 2013 1/2 tab every 2 days until finished Atrovent 09/04/ Hx Solution 0.06% 1ml 2 sprays in 465.9 Jerica 2012 - each nostril Travis, 01/05/ 4 times N.P. 2013 daily Tessalon 09/04/ Hx Capsules 100mg 60cap 1 tab po tid 465.9 Jerica Sadiq 2012 - s prn Travis, 12/01/ N.P. 2012 Sertraline HCL 05/13/ Hx Tablets 100mg 45tab 1.5 po qd 296.23 Jose R 2011 Gael Viramontes, 06/23/ Machelle,FACP 2015 Naprosyn 04/17/ Hx Tablets 500mg 60tab twice daily Duane 2011 - s with food Harvey, 09/04/ prn Machelle 2012 [place] 04/17/ Hx Tablets 5-325mg 40tab 1-2 po q6h Duane 2011 - s prn Harvey, 09/04/ MMargie. 2013 Sertraline HCL 02/13/ Hx Tablets 50mg 45tab 1-1/2 tab qd 296.23 Lisandra Osorio 2011 Eric Gael Viramontes, 05/13/ MZeferino,FACP 2011 Sertraline HCL 11/15/ Hx Tablets 50mg 30tab 1 po qd 296.23 Michael Broussard 2011 Eric s Donna, MMargie. 2011 Abilify / Hx Tablets 10mg 30tab 1 po qd Jose R Reyes s Gael Viramontes, 05/13/ MZeferino,FACP 2011 Hydrocodone/Ac / Hx Tablets 5-500mg 240ta one or two Jose R etaminophen 0000 - bs po every 4 - D. Ana M, 02/22/ 6 hours prn Machelle,FACP 2014 pain Proair HFA / Hx Aerosol 108(90Bas 1unit 2 puffs po Jose R 0000 - e) mcg/ac s q4h prn Gael Viramontes, 10/28/ Machelle,FACP 2012 Ibuprofen // Hx Tablets 400mg by mouth Unknown 0000 - every 4 to 6 06/03/ hours as 2018 needed Verapamil HCL / Hx Caps ER 180mg 30cap take one Jose R ER 0000 - 24HR s capsule by Gael Viramontes, 12/09/ mouth every M.D.,FACP 2017 Naproxen / Hx 60uni Take one Tami Sodium 0000 - ts tablet by Cotton, 01/24/ mouth every M.D. 2018 12 hours as needed for pain. Medications Administered in Office Medication Date Status Form Strength Qnty SIG Indications Ordering Provider PPD Administered Injection Nurse Visit 8 A PPD Administered Injection Jose R Mayo 7 Machelle Viramontes,FACP PPD Administered Injection Jose R Mayo 7 Machelle Viramontes,FACP PPD Administered Injection Jose R Mayo 6 Machelle Viramontes,FACP PPD Administered Injection Joaquín Buck, 5 CDL B DRIVER Immunizations CPT Code Status Date Vaccine Lot # [id number] Given 05/23/2017 Influenza Virus Vaccine, Quadrivalent, Split, Preservative Free 42324 Given 04/10/2016 Influenza Virus Vaccine, Quadrivalent, Split [id number] Virus, [place] Use [address]509 Given 01/21/2015 Measles Mumps And Rubella MMR [id number] 35078 Given 03/24/2014 Pneumonia Vaccine [id number] 09602 Given 03/24/2014 Flu Vaccine Split Virus Preservative Free For [id number] Indiv 3Yr Older Q2035 Given 03/06/2013 Afluria Vaccine [id number] Given 02/14/2012 Fluzone Vaccine [id number] Vital Signs Date Vital Result Comment 02/24/2018 Height 69 inches 5'9" Weight 225.00 lb Heart Rate 76 /min Respiratory Rate 16 /min Body Temperature 98.9 F Pain Level 5 BMI (Body Mass Index) 33.2 kg/m2 02/07/2018 Height 69 inches 5'9" Heart Rate 60 /min Respiratory Rate 24 /min Body Temperature 98.9 F Pain Level 5 01/24/2018 Height 69 inches 5'9" Weight 225.75 lb Heart Rate 80 /min BP Systolic 140 mmHg BP Diastolic 78 mmHg O2 % BldC Oximetry 98 % BMI (Body Mass Index) 33.3 kg/m2 12/27/2017 Height 69 inches 5'9" Weight 223.00 lb Heart Rate 84 /min Respiratory Rate 18 /min Body Temperature 98.5 F Pain Level 5 BMI (Body Mass Index) 32.9 kg/m2 12/05/2017 Height 69 inches 5'9" Weight 223.00 lb Heart Rate 76 /min BP Systolic Sitting 112 mmHg BP Diastolic Sitting 78 mmHg Body Temperature 99.1 F O2 % BldC Oximetry 97 % BMI (Body Mass Index) 32.9 kg/m2 11/22/2017 Height 69 inches 5'9" Weight 221.00 lb Heart Rate 72 /min Respiratory Rate 16 /min Body Temperature 98.8 F Pain Level 4 BMI (Body Mass Index) 32.6 kg/m2 11/11/2017 Height 69 inches 5'9" Weight 221.00 lb Heart Rate 68 /min BP Systolic 116 mmHg BP Diastolic 76 mmHg Body Temperature 98.2 F Pain Level 4 BMI (Body Mass Index) 32.6 kg/m2 10/31/2017 Height 69 inches 5'9" Weight 221.50 lb Heart Rate 81 /min BP Systolic 126 mmHg BP Diastolic 85 mmHg Body Temperature 98.6 F O2 % BldC Oximetry 99 % BMI (Body Mass Index) 32.7 kg/m2 10/14/2017 Height 69 inches 5'9" Weight 225.00 lb Heart Rate 87 /min BP Systolic 125 mmHg BP Diastolic 83 mmHg O2 % BldC Oximetry 97 % BMI (Body Mass Index) 33.2 kg/m2 06/06/2017 Weight 224.00 lb Heart Rate 66 /min BP Systolic Sitting 126 mmHg BP Diastolic Sitting 80 mmHg Body Temperature 98.8 F O2 % BldC Oximetry 98 % 04/25/2017 Weight 220.00 lb Heart Rate 74 /min BP Systolic Sitting 130 mmHg BP Diastolic Sitting 86 mmHg Body Temperature 99.2 F O2 % BldC Oximetry 98 % 01/22/2017 Weight 224.75 lb Heart Rate 79 /min BP Systolic 116 mmHg BP Diastolic 72 mmHg Body Temperature 98.4 F O2 % BldC Oximetry 98 % 10/09/2016 Height 69 inches 5'9" Weight 234.00 lb Heart Rate 72 /min BP Systolic Sitting 132 mmHg BP Diastolic Sitting 84 mmHg O2 % BldC Oximetry 99 % BMI (Body Mass Index) 34.6 kg/m2 09/18/2016 Height 70.5 inches 5'10.50" Weight 239.00 lb Heart Rate 60 /min BP Systolic Sitting 128 mmHg BP Diastolic Sitting 90 mmHg O2 % BldC Oximetry 98 % BMI (Body Mass Index) 33.8 kg/m2 07/17/2016 Weight 244.00 lb Heart Rate 79 /min BP Systolic Sitting 118 mmHg BP Diastolic Sitting 86 mmHg Body Temperature 98.6 F O2 % BldC Oximetry 98 % 04/10/2016 Heart Rate 54 /min BP Systolic Sitting 122 mmHg BP Diastolic Sitting 76 mmHg Body Temperature 99.4 F O2 % BldC Oximetry 98 % 04/03/2016 Weight 237.00 lb Respiratory Rate 18 /min Pain Level 6 02/07/2016 Weight 237.00 lb with ortho boot Heart Rate 65 /min BP Systolic Sitting 110 mmHg BP Diastolic Sitting 80 mmHg O2 % BldC Oximetry 98 % Ra 02/03/2016 Height 70.5 inches 5'10.50" Weight 240.00 lb Pain Level 6 BMI (Body Mass Index) 33.9 kg/m2 01/13/2016 Height 70.5 inches 5'10.50" Weight 240.00 lb Pain Level 5 BMI (Body Mass Index) 33.9 kg/m2 12/27/2015 Height 70.5 inches 5'10.50" Weight 240.00 lb Heart Rate 60 /min Respiratory Rate 18 /min Pain Level 5 BMI (Body Mass Index) 33.9 kg/m2 11/10/2015 Height 70.5 inches 5'10.50" Weight 240.00 lb Heart Rate 69 /min BP Systolic Sitting 120 mmHg BP Diastolic Sitting 86 mmHg Pain Level 6 -12/17 BMI (Body Mass Index) 33.9 kg/m2 10/25/2015 Weight 243.00 lb Heart Rate 68 /min BP Systolic Sitting 128 mmHg BP Diastolic Sitting 84 mmHg Respiratory Rate 15 /min Body Temperature 98.0 F O2 % BldC Oximetry 98 % 09/20/2015 Weight 241.50 lb Heart Rate 64 /min BP Systolic Sitting 116 mmHg BP Diastolic Sitting 66 mmHg Body Temperature 98.9 F O2 % BldC Oximetry 99 % 08/09/2015 Height 70.5 inches 5'10.50" Weight 247.00 lb Heart Rate 78 /min BP Systolic Sitting 122 mmHg BP Diastolic Sitting 80 mmHg Respiratory Rate 15 /min Body Temperature 98.7 F O2 % BldC Oximetry 98 % BMI (Body Mass Index) 34.9 kg/m2 02/15/2015 Height 70.5 inches 5'10.50" Weight 242.00 lb Pain Level 4 BMI (Body Mass Index) 34.2 kg/m2 01/07/2015 Height 70.5 inches 5'10.50" Weight 242.00 lb Pain Level 3 BMI (Body Mass Index) 34.2 kg/m2 12/22/2014 Height 70.5 inches 5'10.50" Weight 242.00 lb Pain Level 4 BMI (Body Mass Index) 34.2 kg/m2 11/30/2014 Height 70.5 inches 5'10.50" Weight 242.00 lb Heart Rate 66 /min BP Systolic 120 mmHg BP Diastolic 79 mmHg BMI (Body Mass Index) 34.2 kg/m2 11/29/2014 Height 70.5 inches 5'10.50" Weight 242.50 lb Heart Rate 76 /min BP Systolic Sitting 122 mmHg BP Diastolic Sitting 78 mmHg Pain Level 5 O2 % BldC Oximetry 98 % BMI (Body Mass Index) 34.3 kg/m2 09/27/2014 Height 70.5 inches 5'10.50" Weight 244.12 lb Heart Rate 69 /min BP Systolic Sitting 110 mmHg BP Diastolic Sitting 86 mmHg Body Temperature 99.2 F O2 % BldC Oximetry 98 % BMI (Body Mass Index) 34.5 kg/m2 06/23/2014 Height 69.75 inches 5'9.75" Weight 235.00 lb Heart Rate 74 /min BP Systolic Sitting 118 mmHg BP Diastolic Sitting 82 mmHg Body Temperature 99.6 F BMI (Body Mass Index) 34.0 kg/m2 04/29/2014 Weight 228.25 lb Heart Rate 70 /min BP Systolic Sitting 131 mmHg BP Diastolic Sitting 81 mmHg Body Temperature 99.3 F O2 % BldC Oximetry 99 % 03/24/2014 Weight 237.50 lb Heart Rate 76 /min BP Systolic Sitting 128 mmHg BP Diastolic Sitting 78 mmHg Body Temperature 99.6 F 02/22/2014 Weight 230.00 lb Heart Rate 80 /min BP Systolic Sitting 116 mmHg BP Diastolic Sitting 78 mmHg Body Temperature 99.2 F 01/05/2013 Weight 222.75 lb Heart Rate 69 /min BP Systolic Sitting 122 mmHg BP Diastolic Sitting 80 mmHg Body Temperature 99.0 F O2 % BldC Oximetry 98 % 12/01/2012 Height 69.75 inches 5'9.75" Weight 227.50 lb Heart Rate 72 /min BP Systolic Sitting 136 mmHg BP Diastolic Sitting 90 mmHg BMI (Body Mass Index) 32.9 kg/m2 09/04/2012 Height 69.5 inches 5'9.50" Weight 228.25 lb Heart Rate 88 /min BP Systolic Sitting 132 mmHg BP Diastolic Sitting 80 mmHg Respiratory Rate 20 /min Body Temperature 97.5 F O2 % BldC Oximetry 97 % BMI (Body Mass Index) 33.2 kg/m2 05/13/2012 Height 69.75 inches 5'9.75" Weight 221.00 lb Heart Rate 80 /min BP Systolic Sitting 128 mmHg BP Diastolic Sitting 88 mmHg BMI (Body Mass Index) 31.9 kg/m2 02/14/2012 Height 69 inches 5'9" Weight 222.00 lb Heart Rate 70 /min BP Systolic Sitting 108 mmHg BP Diastolic Sitting 62 mmHg BMI (Body Mass Index) 32.8 kg/m2 11/16/2011 Height 69 inches 5'9" Weight 207.50 lb Heart Rate 64 /min BP Systolic Sitting 100 mmHg BP Diastolic Sitting 82 mmHg BMI (Body Mass Index) 30.6 kg/m2 Results Test Date Test Result H/L Range Note Drug Abuse 20 Urine 02/13/2018 Urine Amphetamine Negative ng/mL 1 Urine Barbiturates Negative ng/mL 2 Urine Benzodiazepines Negative ng/mL 3 Urine Cocaine Negative ng/mL 4 Urine Phencyclidine Negative ng/mL Cutoff: 25 Urine Tetrahydrocannabinol Negative ng/mL Cutoff: 50 5 Creatinine, Urine 84.9 mg/dL Specific [place] 1.008 pH 7.4 Oxidants Negative 6 Adulterants Comment Normal Codeine, Ur Not Detected ng/mL Cutoff: 25 7 Jdvsmgg-9-lwwf-glucuronide, Ur Not Detected ng/mL 8 Morphine, Ur Not Detected ng/mL Cutoff: 25 9 Ilflqyvp-3-lyeg-glucuronide, U Not Detected ng/mL 10 6-monoacetylmorphine, Ur Not Detected ng/mL Cutoff: 25 11 Hydrocodone, Ur Present ng/mL Cutoff: 25 12 Norhydrocodone, Ur Present ng/mL Cutoff: 25 13 Dihydrocodeine, Ur Not Detected ng/mL Cutoff: 25 14 Hydromorphone, Ur Not Detected ng/mL Cutoff: 25 15 Atcdwkdhpojqr8espwjkgnwsxakyw Not Detected ng/mL 16 Oxycodone, Ur Not Detected ng/mL Cutoff: 25 17 Noroxycodone, Ur Not Detected ng/mL Cutoff: 25 18 Oxymorphone, Ur Not Detected ng/mL Cutoff: 25 19 Feikyolokaw-6-kuyy-glucuronide Not Detected ng/mL 20 Noroxymorphone, Ur Not Detected ng/mL Cutoff: 25 21 Fentanyl, Ur Not Detected ng/mL Cutoff: 2 22 Norfentanyl, Ur Not Detected ng/mL Cutoff: 2 23 Meperidine, Ur Not Detected ng/mL Cutoff: 25 24 Normeperidine, Ur Not Detected ng/mL Cutoff: 25 25 Naloxone, Ur Not Detected ng/mL Cutoff: 25 26 Iljykyxy-1-dbdg-glucuronide, U Not Detected ng/mL 27 Methadone, Ur Not Detected ng/mL Cutoff: 25 28 Eddp, Ur Not Detected ng/mL Cutoff: 25 29 Propoxyphene, Ur Not Detected ng/mL Cutoff: 25 30 Norpropoxyphene, Ur Not Detected ng/mL Cutoff: 25 31 Tramadol, Ur Not Detected ng/mL Cutoff: 25 32 O-desmethyltramadol, Ur Not Detected ng/mL Cutoff: 25 33 Tapentadol, Ur Not Detected ng/mL Cutoff: 25 34 N-desmethyltapentadol, Ur Not Detected ng/mL Cutoff: 50 35 Cvggexarvf-ovld-dtzkzcboiln, U Not Detected ng/mL 36 Buprenorphine, Ur Not Detected ng/mL Cutoff: 5 37 Norbuprenorphine, Ur Not Detected ng/mL Cutoff: 5 38 Norbuprenorphine glucuronide Not Detected ng/mL Cutoff: 20 39 Opioid Interpretation See Comment 40 Lipid Profile (Trig/Chol/HDL) 02/07/2018 Triglycerides 179 mg/dL 41 Cholesterol 161 mg/dL 42 HDL Cholesterol 43.1 mg/dL 43 LDL Cholesterol 82 mg/dL 44 Basic Metabolic Panel 02/07/2018 Sodium 141 mmol/L 135-145 Potassium 4.2 mmol/L 3.5-5.0 Chloride 110 mmol/L 101-111 Co2 Carbon Dioxide 24 mmol/L 22-32 Anion Gap 7 mmol/L 2-11 Calcium 9.7 mg/dL 8.6-10.3 Glucose 94 mg/dL 70-100 Blood Urea Nitrogen 34 mg/dL High 6-24 Creatinine 1.24 mg/dL High 0.51-0.95 BUN/Creatinine Ratio 27.4 High 8-20 Egfr Non- 44.7 >60 Egfr 54.1 >60 45 Lipid Profile (Trig/Chol/HDL) 04/04/2017 Triglycerides 143 mg/dL 46 Cholesterol 174 mg/dL 47 HDL Cholesterol 47.3 mg/dL 48 LDL Cholesterol 98 mg/dL 49 Basic Metabolic Panel 04/04/2017 Sodium 136 mmol/L 133-145 Potassium 3.5 mmol/L 3.5-5.0 Chloride 104 mmol/L 101-111 Co2 Carbon Dioxide 24 mmol/L 22-32 Anion Gap 8 mmol/L 2-11 Glucose 82 mg/dL 70-100 Blood Urea Nitrogen 31 mg/dL High 6-24 Creatinine 1.32 mg/dL High 0.51-0.95 BUN/Creatinine Ratio 23.5 High 8-20 Calcium 10.0 mg/dL 8.6-10.3 Egfr Non- 41.8 >60 Egfr 53.7 >60 50 Urinalysis Profile 01/03/2017 Urine Color Straw Urine Appearance Clear Urine Specific [place] 1.004 Low 1.010-1.030 Urine pH 8.0 5-9 Urine Urobilinogen Negative Negative Urine Ketones Negative Negative Urine Protein Negative Negative Urine Leukocytes Negative Negative Urine Blood Negative Negative Urine Nitrite Negative Negative Urine Bilirubin Negative Negative Urine Glucose Negative Negative Inr/Protime 01/03/2017 Inr 1.05 0.89-1.11 Comp Metabolic Panel 01/03/2017 Sodium 138 mmol/L 133-145 Potassium 3.4 mmol/L Low 3.5-5.0 Chloride 108 mmol/L 101-111 Co2 Carbon Dioxide 21 mmol/L Low 22-32 Anion Gap 9 mmol/L 2-11 Glucose 85 mg/dL 70-100 Blood Urea Nitrogen 28 mg/dL High 6-24 Creatinine 1.41 mg/dL High 0.51-0.95 BUN/Creatinine Ratio 19.9 8-20 Calcium 9.8 mg/dL 8.6-10.3 Total Protein 7.7 g/dL 6.4-8.9 Albumin 4.1 g/dL 3.2-5.2 Globulin 3.6 g/dL 2-4 Albumin/Globulin Ratio 1.1 1-3 Total Bilirubin 0.50 mg/dL 0.2-1.0 Alkaline Phosphatase 67 U/L 34-104 Alt 15 U/L 7-52 Ast 17 U/L 13-39 Egfr Non- 38.7 >60 Egfr 49.8 >60 51 Laboratory test finding 01/03/2017 Magnesium 2.3 mg/dL 1.9-2.7 Troponin-I (TnI) 0.00 ng/mL <0.04 TSH (Thyroid Stim Horm) 2.02 mcIU/mL 0.34-5.60 CBC Auto Diff 01/03/2017 White Blood Count 7.9 10^3/uL 3.5-10.8 Red Blood Count 3.74 10^6/uL Low 4.0-5.4 Hemoglobin 11.9 g/dL Low 12.0-16.0 Hematocrit 35 % 35-47 Mean Corpuscular Volume 95 fL 80-97 Mean Corpuscular Hemoglobin 32 pg High 27-31 Mean Corpuscular HGB Conc 34 g/dL 31-36 Red Cell Distribution Width 13 % 10.5-15 Platelet Count 280 10^3/uL 150-450 Mean Platelet Volume 8 um3 7.4-10.4 Abs Neutrophils 4.2 10^3/uL 1.5-7.7 Abs Lymphocytes 2.4 10^3/uL 1.0-4.8 Abs Monocytes 0.5 10^3/uL 0-0.8 Abs Eosinophils 0.6 10^3/uL 0-0.6 Abs Basophils 0.1 10^3/uL 0-0.2 Abs Nucleated RBC 0.01 10^3/uL Granulocyte % 53.7 % 38-83 Lymphocyte % 30.4 % 25-47 Monocyte % 6.9 % 1-9 Eosinophil % 7.4 % High 0-6 Basophil % 1.6 % 0-2 Nucleated Red Blood Cells % 0.1 Laboratory test finding 01/03/2017 Lactic Acid 1.2 mmol/L 0.5-2.0 52 Partial Thrombo Time PTT 36.2 seconds 26.0-36.3 Erythrocyte Sed Rate 72 mm/Hr High 0-30 Lipid Profile (Trig/Chol/HDL) 10/04/2016 Triglycerides 181 mg/dL 53 Cholesterol 193 mg/dL 54 HDL Cholesterol 41.8 mg/dL 55 LDL Cholesterol 115 mg/dL 56 Laboratory test finding 10/04/2016 Homocysteine 18 mcmol/L 57 Basic Metabolic Panel 10/04/2016 Sodium 139 mmol/L 133-145 Potassium 3.9 mmol/L 3.5-5.0 Chloride 107 mmol/L 101-111 Co2 Carbon Dioxide 22 mmol/L 22-32 Anion Gap 10 mmol/L 2-11 Glucose 90 mg/dL 70-100 Blood Urea Nitrogen 27 mg/dL High 6-24 Creatinine 1.40 mg/dL High 0.51-0.95 BUN/Creatinine Ratio 19.3 8-20 Calcium 10.0 mg/dL 8.6-10.3 Egfr Non- 39.0 >60 Egfr 50.2 >60 58 Laboratory test finding 04/20/2016 Vitamin B12 336 pg/mL 180-914 59 Folic Acid (Folate) > 20.00 ng/mL >3.99 Methylmalonic Acid Mma 0.29 nmol/mL <=0.40 60 Vitamin B6 04/20/2016 Pyridoxal 5-Phosphate 25 g/L 5-50 61 Pyridoxic Acid 45 g/L 3-30 62 Factor 5 Leiden Mutation 04/20/2016 Factor V Leiden Mutation Negative Negative Factor V Leiden Interpretation See Comment 63 Factor V Leiden Reviewed By See Comment 64 Factor II (Prothrombin) 04/20/2016 Prothrombin 42165 Negative Negative Genoty Mutation Prothrombin [id number] Interp See Comment 65 Prothrombin Mutation Review By See Comment 66 Laboratory test finding 04/20/2016 Homocysteine 16 mcmol/L 67 Factor 5 Leiden Mutation 04/12/2016 Factor V Leiden Mutation Negative Negative Factor V Leiden Interpretation See Comment 68 Factor V Leiden Reviewed By See Comment 69 Factor II (Prothrombin) 04/12/2016 Prothrombin 36785 Negative Negative Genoty Mutation Prothrombin [id number] Interp See Comment 70 Prothrombin Mutation Review By See Comment 71 Laboratory test finding 04/12/2016 Homocysteine 17 mcmol/L 72 Lipid Profile (Trig/Chol/HDL) 01/31/2016 Triglycerides 170 mg/dL 73 Cholesterol 223 mg/dL 74 HDL Cholesterol 41.4 mg/dL 75 LDL Cholesterol 148 mg/dL 76 Laboratory test 10/13/2015 Surgical Interface SEE RESULT BELOW 77 finding Order Basic Metabolic Panel 09/22/2015 Sodium 139 mmol/L 133-145 Potassium 3.7 mmol/L 3.5-5.0 Chloride 105 mmol/L 101-111 Co2 Carbon Dioxide 26 mmol/L 22-32 Anion Gap 8 mmol/L 2-11 Glucose 89 mg/dL 70-100 Blood Urea Nitrogen 26 mg/dL High 6-24 Creatinine 1.34 mg/dL High 0.51-0.95 BUN/Creatinine Ratio 19.4 8-20 Calcium 9.7 mg/dL 8.6-10.3 Egfr Non- 41.2 >60 Egfr 53.0 >60 78 Laboratory test finding 09/22/2015 Vitamin B12 267 pg/mL 180-914 79 Rubeola Measles Igg AB 09/22/2015 Rubeola (Measles) IgG Positive 80 Antibody Rubeola IgG Antibody Index 5.6 81 Laboratory test 09/22/2015 D Dimer Quantitative 315 ng/mL High Less Than 82 finding 230 Drug Abuse 20 Urine 07/12/2015 Urine Amphetamine Negative ng/mL 83 Urine Barbiturates Negative ng/mL 84 Urine Benzodiazepines Presumptive Posi <SEE NOTE> ng/mL 85 Urine Cocaine Negative ng/mL 86 Urine Methadone Negative ng/mL 87 Urine Opiates Negative ng/mL 88 Urine Phencyclidine Negative ng/mL Cutoff: 25 Urine Tetrahydrocannabinol Negative ng/mL Cutoff: 20 89 Urine Oxycodone Negative ng/mL 90 Benzodiazepine Confirm Urine 07/12/2015 Urine Lorazepam GC/MS Negative ng/ mL 91 Urine Nordiazepam GC/MS Negative ng/mL 92 Urine Oxazepam GC/MS Negative ng/mL 93 Urine Temazepam GC/MS Negative ng/mL 94 Ur Oh Ethyl Flurazepam GC/MS Negative ng/mL 95 Ur 7 NH Clonazepam GC/MS Negative ng/mL 96 Ur 7 NH Flunitrazepam GC/MS Negative ng/mL Cutoff: 50 Ur Alpha Oh Alprazolam GC/MS 896 ng/mL 97 Ur Alpha Oh Triazolam GC/MS Negative ng/mL 98 Ur Benzodiazepine Interp Positive. 99 Laboratory test 07/02/2014 D Dimer Quantitative 249 ng/mL High Less Than 230 100 finding Basic Metabolic 07/02/2014 Sodium 136 mmol/L 133-145 Panel Potassium 3.6 mmol/L 3.5-5.0 Chloride 104 mmol/L 101-111 Co2 Carbon Dioxide 25 mmol/L 22-32 Anion Gap 7 mmol/L 2-11 Glucose 90 mg/dL 70-100 Blood Urea Nitrogen 37 mg/dL High 6-24 Creatinine 1.35 mg/dL High 0.51-0.95 BUN/Creatinine Ratio 27.4 High 8-20 Calcium 9.4 mg/dL 8.6-10.3 Egfr Non- 41.2 >60 Egfr 53.0 >60 101 Urinalysis Profile 05/17/2014 Urine Color Yellow Urine Appearance Clear Urine Specific [place] 1.014 1.010-1.030 Urine pH 5.0 5-9 Urine Urobilinogen Negative Negative Urine Ketones Negative Negative Urine Protein Negative Negative Urine Leukocytes Negative Negative Urine Blood Negative Negative Urine Nitrite Negative Negative Urine Bilirubin Negative Negative Urine Glucose Negative Negative Urine Drug SCR ED & 05/17/2014 Amphetamine Ur Screen None Detected None Detect Pain Clinic Barbiturates Urine Screen None Detected None Detect Benzodiazepine Urine Screen Presumptive Posi <SEE NOTE> None Detect 102 Urine Cannabinoids Screen None Detected None Detect Urine Cocaine Screen None Detected None Detect Urine Opiates Screen None Detected None Detect Urine Phencyclidine Screen None Detected None Detect 103 CBC Auto Diff 05/17/2014 White Blood Count 6.8 10^3/uL 4.8-10.8 Red Blood Count 3.79 10^6/uL Low 4.0-5.4 Hemoglobin 11.8 g/dL Low 12.0-16.0 Hematocrit 35 % 35-47 Mean Corpuscular Volume 92 fL 80-97 Mean Corpuscular Hemoglobin 31 pg 27-31 Mean Corpuscular HGB Conc 34 g/dL 31-36 Red Cell Distribution Width 12 % 10.5-15 Platelet Count 275 10^3/uL 150-450 Mean Platelet Volume 8 um3 7.4-10.4 Abs Neutrophils 3.6 10^3/uL 1.5-7.7 Abs Lymphocytes 2.0 10^3/uL 1.0-4.8 Abs Monocytes 0.6 10^3/uL 0-0.8 Abs Eosinophils 0.5 10^3/uL 0-0.6 Abs Basophils 0.1 10^3/uL 0-0.2 Abs Nucleated RBC 0 10^3/uL Granulocyte % 53.2 % 38-83 Lymphocyte % 29.5 % 25-47 Monocyte % 8.2 % 1-9 Eosinophil % 7.9 % High 0-6 Basophil % 1.2 % 0-2 Nucleated Red Blood Cells % 0 Laboratory test finding 05/17/2014 Lactic Acid 1.1 mmol/L 0.5-2.2 Serum Negative Negative 104 Comp Metabolic Panel 05/17/2014 Sodium 140 mmol/L 133-145 Potassium 3.5 mmol/L 3.5-5.0 Chloride 108 mmol/L 101-111 Co2 Carbon Dioxide 28 mmol/L 22-32 Anion Gap 4 mmol/L 2-11 Glucose 105 mg/dL High 70-100 Blood Urea Nitrogen 19 mg/dL 6-24 Creatinine 1.37 mg/dL High 0.51-0.95 BUN/Creatinine Ratio 13.9 8-20 Calcium 9.3 mg/dL 8.6-10.3 Total Protein 6.8 g/dL 6.4-8.9 Albumin 3.6 g/dL 3.2-5.2 Globulin 3.2 g/dL 2-4 Albumin/Globulin Ratio 1.1 1-3 Total Bilirubin 0.30 mg/dL 0.2-1.0 Alkaline Phosphatase 62 U/L 34-104 Alt 8 U/L 7-52 Ast 12 U/L Low 13-39 Egfr Non- 40.5 >60 Egfr 52.1 >60 105 Laboratory test finding 05/17/2014 Creatine Kinase 60 U/L 10-223 Acetaminophen < 15 g/mL 106 Alcohol < 10 mg/dL <10 Salicylate < 2.50 mg/dL <30 TSH (Thyroid Stimulating Horm) 1.71 IU/mL 0.34-5.60 Urinalysis Profile 02/12/2014 Urine Color Yellow Urine Appearance Cloudy Urine Specific [place] 1.016 1.010-1.030 Urine pH 5.0 5-9 Urine Urobilinogen Negative Negative Urine Ketones Negative Negative Urine Protein 1+(30 mg/dL) Negative Urine Leukocytes Negative Negative Urine Blood Negative Negative * * Negative 107 Urine Nitrite Negative Negative Urine Bilirubin Negative Negative Urine Glucose Negative Negative Urine White Blood Cell Trace Absent Urine Red Blood Cell Trace(0-2/hpf) Absent Urine Bacteria 1+ Absent Urine Squamous Epithelial Cell Present Absent Urine Drug SCR ED & 02/12/2014 Amphetamine Ur Screen None Detected None Detect Pain Clinic Barbiturates Urine Screen None Detected None Detect Benzodiazepine Urine Screen Presumptive Posi <SEE NOTE> None Detect 108 Urine Cannabinoids Screen None Detected None Detect Urine Cocaine Screen None Detected None Detect Urine Opiates Screen None Detected None Detect Urine Phencyclidine Screen None Detected None Detect 109 CBC Auto Diff 02/12/2014 White Blood Count 7.2 10^3/uL 4.8-10.8 Red Blood Count 3.53 10^6/uL Low 4.0-5.4 Hemoglobin 11.0 g/dL Low 12.0-16.0 Hematocrit 33 % Low 35-47 Mean Corpuscular Volume 93 fL 80-97 Mean Corpuscular Hemoglobin 31 pg 27-31 Mean Corpuscular HGB Conc 33 g/dL 31-36 Red Cell Distribution Width 13 % 10.5-15 Platelet Count 285 10^3/uL 150-450 Mean Platelet Volume 8 um3 7.4-10.4 Abs Neutrophils 5.0 10^3/uL 1.5-7.7 Abs Lymphocytes 1.4 10^3/uL 1.0-4.8 Abs Monocytes 0.6 10^3/uL 0-0.8 Abs Eosinophils 0.2 10^3/uL 0-0.6 Abs Basophils 0.1 10^3/uL 0-0.2 Abs Nucleated RBC 0 10^3/uL Granulocyte % 68.6 % 38-83 Lymphocyte % 19.6 % Low 25-47 Monocyte % 8.4 % 1-9 Eosinophil % 2.4 % 0-6 Basophil % 1.0 % 0-2 Nucleated Red Blood Cells % 0.1 Laboratory test 02/12/2014 D Dimer Quantitative 458 ng/mL High Less Than 230 110 finding Comp Metabolic Panel 02/12/2014 Sodium 139 mmol/L 133-145 Potassium 3.4 mmol/L Low 3.7-5.6 Chloride 109 mmol/L 101-111 Co2 Carbon Dioxide 18 mmol/L Low 22-32 Anion Gap 12 mmol/L High 2-11 Glucose 102 mg/dL High 70-100 Blood Urea Nitrogen 26 mg/dL High 6-24 Creatinine 1.44 mg/dL High 0.51-0.95 BUN/Creatinine Ratio 18.1 8-20 Calcium 9.0 mg/dL 8.6-10.3 Total Protein 6.8 g/dL 6.4-8.9 Albumin 3.6 g/dL 3.2-5.2 Globulin 3.2 g/dL 2-4 Albumin/Globulin Ratio 1.1 1-3 Total Bilirubin 0.40 mg/dL 0.2-1.0 Alkaline Phosphatase 67 U/L 34-104 Alt 12 U/L 7-52 Ast 18 U/L 13-39 Egfr Non- 38.2 >60 Egfr 49.2 >60 111 Laboratory test finding 02/12/2014 Creatine Kinase 243 U/L High 10-223 Troponin I 0.00 ng/mL <0.03 112 Acetaminophen < 15 g/mL 113 Alcohol < 10 mg/dL <10 Salicylate < 2.50 mg/dL <30 TSH (Thyroid Stimulating Horm) 2.90 IU/mL 0.34-5.60 Wound Culture/Sensi 01/03/2013 Wound/Misc Culture-Gram (SEE NOTE) 114 Stain CBC Auto Diff 01/03/2013 White Blood Count 11.4 10^3/uL High 4.8-10.8 Red Blood Count 3.99 10^6/uL Low 4.0-5.4 Hemoglobin 12.8 g/dL 12.0-16.0 Hematocrit 37 % 35-47 Mean Corpuscular Volume 93 fL 80-97 Mean Corpuscular Hemoglobin 32 pg High 27-31 Mean Corpuscular HGB Conc 34 g/dL 31-36 Red Cell Distribution Width 14 % 10.5-15 Platelet Count 271 10^3/uL 150-450 Mean Platelet Volume 8 um3 7.4-10.4 Abs Neutrophils 8.5 10^3/uL High 1.5-7.7 Abs Lymphocytes 1.7 10^3/uL 1.0-4.8 Abs Monocytes 0.8 10^3/uL 0-0.8 Abs Eosinophils 0.2 10^3/uL 0-0.6 Abs Basophils 0.1 10^3/uL 0-0.2 Abs Nucleated RBC 0.01 10^3/uL Granulocyte % 74.6 % 38-83 Lymphocyte % 15.1 % Low 25-47 Monocyte % 7.0 % 1-9 Eosinophil % 2.1 % 0-6 Basophil % 1.2 % 0-2 Nucleated Red Blood Cells % 0 Basic Metabolic Panel 01/03/2013 Sodium 140 mmol/L 133-145 Potassium 3.1 mmol/L Low 3.5-5.0 Chloride 109 mmol/L 101-111 Co2 Carbon Dioxide 20.0 mmol/L Low 22-32 Anion Gap 11.0 mmol/L 2-11 Glucose 101 mg/dL High 70-100 Blood Urea Nitrogen 22 mg/dL 6-24 Creatinine 1.50 mg/dL High 0.50-1.40 BUN/Creatinine Ratio 14.7 8-20 Calcium 10.4 mg/dL High 8.1-9.9 Egfr Non- 36.6 >60 Egfr 47.1 >60 115 Throat-Beta Strept 11/29/2012 Throat Beta Strep (SEE NOTE) 116 Culture Laboratory test finding 11/22/2012 Serum Negative Negative 117 Creatine Kinase 126 U/L 0-200 118 CBC Auto Diff 11/22/2012 White Blood Count 8.7 10^3/uL 4.8-10.8 Red Blood Count 3.87 10^6/uL Low 4.0-5.4 Hemoglobin 12.2 g/dL 12.0-16.0 Hematocrit 36 % 35-47 Mean Corpuscular Volume 93 fL 80-97 Mean Corpuscular Hemoglobin 31 pg 27-31 Mean Corpuscular HGB Conc 34 g/dL 31-36 Red Cell Distribution Width 13 % 10.5-15 Platelet Count 259 10^3/uL 150-450 Mean Platelet Volume 8 um3 7.4-10.4 Abs Neutrophils 5.8 10^3/uL 1.5-7.7 Abs Lymphocytes 1.9 10^3/uL 1.0-4.8 Abs Monocytes 0.6 10^3/uL 0-0.8 Abs Eosinophils 0.3 10^3/uL 0-0.6 Abs Basophils 0.1 10^3/uL 0-0.2 Abs Nucleated RBC 0 10^3/uL Granulocyte % 66.7 % 38-83 Lymphocyte % 22.3 % Low 25-47 Monocyte % 6.8 % 1-9 Eosinophil % 3.2 % 0-6 Basophil % 1.0 % 0-2 Nucleated Red Blood Cells % 0 Drug Abuse 20 Urine 11/16/2011 Urine Ampetamines Negative ng/mL () 119 Urine Barbiturates Negative ng/mL () 120 Urine Benzodiazepines Negative ng/mL () 121 Urine Cocaine Negative ng/mL () 122 Urine Methadone Negative ng/mL () 123 Urine Opiates Negative ng/mL () 124 Urine Phencyclidine Negative ng/mL Cutoff: 25 Urine Propoxyphene Negative ng/mL () 125 Urine Tetrahydrocannabinol Negative ng/mL Cutoff: 20 126 Urine Opiates Screen Negative () 127 Urine Codeine By GC/MS Negative ng/mL () 128 Urine Hydrocodone By GC/MS Negative ng/mL () 129 Urine Hydromophone By GC/MS Negative ng/mL () 130 Urine Morphine By GC/MS Negative ng/mL () 131 Urine Oxycodone By GC/MS Negative ng/mL () 132 Urine Opiates Interpretation Negative. () 133 1 REFERENCE VALUE Cutoff: 500 2 REFERENCE VALUE Cutoff: 200 3 REFERENCE VALUE Cutoff: 100 4 REFERENCE VALUE Cutoff: 150 5 ADDITIONAL INFORMATION This report is intended for use in clinical monitoring or management of patients. It is not intended for use in employment-related testing. 6 REFERENCE VALUE Cutoff: 200 mg/L 7 Tylenol 3 8 Metabolite of codeine REFERENCE VALUE Cutoff: 100 9 Ellen Bro, MS Contin; Also a minor metabolite (10%) of codeine and can be seen in low concentrations (<2,000 ng/mL) with poppy seed ingestion. 10 Metabolite of morphine REFERENCE VALUE Cutoff: 100 11 Metabolite of heroin 12 Lortab, [place], Vicodin; Also a very minor metabolite of codeine and impurity (<1%) of oxycodone. 13 Metabolite of hydrocodone 14 Metabolite of hydrocodone 15 Dilaudid, Exalgo; Also a metabolite of hydrocodone and a minor (<5%) metabolite of morphine. 16 Metabolite of hydromorphone REFERENCE VALUE Cutoff: 100 17 Endocet, Percocet, Oxycontin 18 Metabolite of oxycodone 19 Numorphan, Opana; Also a metabolite of oxycodone. 20 Metabolite of oxymorphone REFERENCE VALUE Cutoff: 100 21 Metabolite of oxymorphone 22 Actiq, Duragesic, Fentora 23 Metabolite of fentanyl 24 Demerol 25 Metabolite of meperidine 26 Narcan 27 Metabolite of naloxone REFERENCE VALUE Cutoff: 100 28 Dolophine 29 Metabolite of methadone 30 Darvon, Darvocet 31 Metabolite of propoxyphene 32 Tradol, Ultram, Ultracet 33 Metabolite of tramadol 34 Nucynta 35 Metabolite of tapentadol 36 Metabolite of tapentadol REFERENCE VALUE Cutoff: 100 37 Buprenex, Suboxone 38 Metabolite of buprenorphine 39 Metabolite of buprenorphine 40 Test detected the presence of hydrocodone and one of its metabolites (norhydrocodone). Suspect use of hydrocodone within the past three days. ADDITIONAL INFORMATION This test was developed and its performance characteristics determined by [facility] in a manner consistent with CLIA requirements. This test has not been cleared or approved by the U.S. Food and Drug Administration. Test Performed by: [facility] [address] [place] [address] 41 Desirable: <150 Borderline High: 150-199 High: 200-499 Very High: >500 42 Desirable: <200 Borderline High: 200-239 High: >239 43 Low: <40 Desirable: 40-60 High: >60 44 Desirable: <100 Near Optimal: 100-129 Borderline High: 130-159 High: 160-189 Very High: >189 45 Because ethnic data is not always readily available, this report includes an eGFR for both -Americans and non- Americans. The National Kidney Disease Education Program (NKDEP) does not endorse the use of the MDRD equation for patients that are not between the ages of 18 and 70, are , have extremes of body size, muscle mass, or nutritional status, or are non- or non-. According to the National Kidney Foundation, irrespective of diagnosis, the stage of the disease is based on the level of kidney function: Stage Description GFR(mL/min/1.73 m(2)) 1 Kidney damage with normal or decreased GFR 90 2 Kidney damage with mild decrease in GFR 60-89 3 Moderate decrease in GFR 30-59 4 Severe decrease in GFR 15-29 5 Kidney failure <15 (or dialysis) 46 Desirable: <150 Borderline High: 150-199 High: 200-499 Very High: >500 47 Desirable: <200 Borderline High: 200-239 High: >239 48 Low: <40 Desirable: 40-60 High: >60 49 Desirable: <100 Near Optimal: 100-129 Borderline High: 130-159 High: 160-189 Very High: >189 50 Because ethnic data is not always readily available, this report includes an eGFR for both -Americans and non- Americans. The National Kidney Disease Education Program (NKDEP) does not endorse the use of the MDRD equation for patients that are not between the ages of 18 and 70, are , have extremes of body size, muscle mass, or nutritional status, or are non- or non-. According to the National Kidney Foundation, irrespective of diagnosis, the stage of the disease is based on the level of kidney function: Stage Description GFR(mL/min/1.73 m(2)) 1 Kidney damage with normal or decreased GFR 90 2 Kidney damage with mild decrease in GFR 60-89 3 Moderate decrease in GFR 30-59 4 Severe decrease in GFR 15-29 5 Kidney failure <15 (or dialysis) 51 Because ethnic data is not always readily available, this report includes an eGFR for both -Americans and non- Americans. The National Kidney Disease Education Program (NKDEP) does not endorse the use of the MDRD equation for patients that are not between the ages of 18 and 70, are , have extremes of body size, muscle mass, or nutritional status, or are non- or non-. According to the National Kidney Foundation, irrespective of diagnosis, the stage of the disease is based on the level of kidney function: Stage Description GFR(mL/min/1.73 m(2)) 1 Kidney damage with normal or decreased GFR 90 2 Kidney damage with mild decrease in GFR 60-89 3 Moderate decrease in GFR 30-59 4 Severe decrease in GFR 15-29 5 Kidney failure <15 (or dialysis) 52 [facility] Severe Sepsis and Septic Shock Management Bundle Measure requires all lactic acids initially measuring >2.0 mmol/L be repeated. 53 Desirable <150 Borderline high 150-199 High 200-499 Very High >500 54 Desirable <200 Borderline high 200-239 High >239 55 Low <40 Desirable: 40-60 High: >60 56 Desirable: <100 mg/dL Near Optimal: 100-129 mg/dL Borderline High: 130-159 mg/dL High: 160-189 mg/dL Very High: >189 mg/dL 57 The homocysteine concentration is elevated in this sample. Increased homocysteine has been associated with an increased risk of cardiovascular disease, cerebrovascular disease, peripheral arterial disease and thrombosis. Vitamin deficiencies (B6, B12 and folic acid) may also cause an increased homocysteine concentration. Inborn errors of methionine metabolism are a potential, but less likely, possibility for hyperhomocysteinemia. Consider plasma or serum methylmalonic acid analysis to rule out vitamin B12 deficiency. REFERENCE VALUE <=13 (Fasting) ADDITIONAL INFORMATION This test was developed and its performance characteristics determined by [facility] in a manner consistent with CLIA requirements. This test has not been cleared or approved by the U.S. Food and Drug Administration. Test Performed by: [address] [address] 58 Because ethnic data is not always readily available, this report includes an eGFR for both -Americans and non- Americans. The National Kidney Disease Education Program (NKDEP) does not endorse the use of the MDRD equation for patients that are not between the ages of 18 and 70, are , have extremes of body size, muscle mass, or nutritional status, or are non- or non-. According to the National Kidney Foundation, irrespective of diagnosis, the stage of the disease is based on the level of kidney function: Stage Description GFR(mL/min/1.73 m(2)) 1 Kidney damage with normal or decreased GFR 90 2 Kidney damage with mild decrease in GFR 60-89 3 Moderate decrease in GFR 30-59 4 Severe decrease in GFR 15-29 5 Kidney failure <15 (or dialysis) 59 Normal Range 180 to 914 Indeterminate Range 145 to 180 Deficient Range <145 60 Test Performed by: [place] [id number] Order Editor: Shalom Snow II, M.D., Ph.D. 61 ADDITIONAL INFORMATION This test was developed and its performance characteristics determined by [facility] in a manner consistent with CLIA requirements. This test has not been cleared or approved by the U.S. Food and Drug Administration. 62 ADDITIONAL INFORMATION This test was developed and its performance characteristics determined by [facility] in a manner consistent with CLIA requirements. This test has not been cleared or approved by the U.S. Food and Drug Administration. Test Performed by: [place] [address] Order Editor: Shalom Snow II, M.D., Ph.D. 63 This individual DOES NOT have the factor V Leiden (R506Q) mutation. Although the factor V Leiden mutation is absent, the individual may have other genetic and environmental risk factors for thrombosis. If clinically indicated, consider Coagulation Consultation 71890 (Thrombophilia Profile) to complete the evaluation for an inherited or acquired thrombosing disorder (i.e., thrombophilia). ADDITIONAL INFORMATION This test is a direct mutation analysis using PCR amplification, signal generation and release by cleavage of sequence specific alleles ([employer], [employer], [place], [place]). 64 RESULT: Ramirez Frankel M.D., Ph.D. Test Performed by: [place] [address] Order Editor: Shalom Snow II, M.D., Ph.D. 65 This individual DOES NOT have the Prothrombin [id number] mutation. Although the Prothrombin [id number] mutation is absent, the individual may have other genetic and environmental risk factors for thrombosis. If clinically indicated, suggest Coagulation Consultation 96647 (Thrombophilia Profile) to complete the evaluation for an inherited or acquired thrombosing disorder (i.e., thrombophilia). Consider genetic consultation and counseling of potentially affected family members regarding laboratory testing. ADDITIONAL INFORMATION This test is a direct mutation analysis using PCR amplification, signal generation and release by cleavage of sequence specific alleles ([employer], [employer], [place], [place]). 66 RESULT: Ramirez Frankel M.D., Ph.D. Test Performed by: [place] [id number] Order Editor: Shalom Snow II, M.D., Ph.D. 67 The homocysteine concentration is elevated in this sample. Increased homocysteine has been associated with an increased risk of cardiovascular disease, cerebrovascular disease, peripheral arterial disease and thrombosis. Vitamin deficiencies (B6, B12 and folic acid) may also cause an increased homocysteine concentration. Inborn errors of methionine metabolism are a potential, but less likely, possibility for hyperhomocysteinemia. Consider plasma or serum methylmalonic acid analysis to rule out vitamin B12 deficiency. REFERENCE VALUE <=13 (Fasting) Test Performed by: [place] [address] Order Editor: Shalom Snow II, M.D., Ph.D. 68 This individual DOES NOT have the factor V Leiden (R506Q) mutation. Although the factor V Leiden mutation is absent, the individual may have other genetic and environmental risk factors for thrombosis. If clinically indicated, consider Coagulation Consultation 00008 (Thrombophilia Profile) to complete the evaluation for an inherited or acquired thrombosing disorder (i.e., thrombophilia). ADDITIONAL INFORMATION This test is a direct mutation analysis using PCR amplification, signal generation and release by cleavage of sequence specific alleles ([employer], [employer], [place], [place]). 69 RESULT: Ramirez Frankel M.D., Ph.D. Test Performed by: [place] [address] Order Editor: Shalom Snow II, M.D., Ph.D. 70 This individual DOES NOT have the Prothrombin [id number] mutation. Although the Prothrombin [id number] mutation is absent, the individual may have other genetic and environmental risk factors for thrombosis. If clinically indicated, suggest Coagulation Consultation 09607 (Thrombophilia Profile) to complete the evaluation for an inherited or acquired thrombosing disorder (i.e., thrombophilia). Consider genetic consultation and counseling of potentially affected family members regarding laboratory testing. ADDITIONAL INFORMATION This test is a direct mutation analysis using PCR amplification, signal generation and release by cleavage of sequence specific alleles ([employer], [employer], [place], [place]). 71 RESULT: Ramirez Frankel M.D., Ph.D. Test Performed by: [place] [address] Order Editor: Shalom Snow II, M.D., Ph.D. 72 The homocysteine concentration is elevated in this sample. Increased homocysteine has been associated with an increased risk of cardiovascular disease, cerebrovascular disease, peripheral arterial disease and thrombosis. Vitamin deficiencies (B6, B12 and folic acid) may also cause an increased homocysteine concentration. Inborn errors of methionine metabolism are a potential, but less likely, possibility for hyperhomocysteinemia. Consider plasma or serum methylmalonic acid analysis to rule out vitamin B12 deficiency. REFERENCE VALUE <=13 (Fasting) Test Performed by: [place] [address] Order Editor: Shalom Snow II, M.D., Ph.D. 73 Desirable <150 Borderline high 150-199 High 200-499 Very High >500 74 Desirable <200 Borderline high 200-239 High >239 75 Low <40 Desirable: 40-60 High: >60 76 Desirable: <100 mg/dL Near Optimal: 100-129 mg/dL Borderline High: 130-159 mg/dL High: 160-189 mg/dL Very High: >189 mg/dL 77 SEE RESULT BELOW Name: CHAYO HUANG : [address]: Sergio Jacome MD Acct: [id number] Unit: [id number] AGE: 55 Location: [facility] Re10/13/15 SEX: F Status: REG REF SPEC: [id number] LION: 10/13/15-[address]: Sergio Jacome MD REQ: [id number] RECD: 10/14/15-161 STATUS: JORDAN KEENAN DR: Jose R Viramontes MD _ ORDERED: LEVEL IV FINAL DIAGNOSIS Colon, 45 cm, biopsy: -- Tubular adenoma. -- No high grade dysplasia or malignancy. CLINICAL HISTORY Hypertension, depression POST-OPERATIVE DIAGNOSIS Colonoscopy to cecum - polyp at 45 cm. biopsied, tics; 10 years GROSS DESCRIPTION The specimen is received in formalin labeled, Biopsy Colon Polyp at 45 cm, and consists of a 0.4 x 0.2 x 0.2 cm stone-white irregular to polypoid soft tissue fragment, which is inked and submitted entirely in one cassette. Signed (signature on file) Ayaz Franco MD 1116 END OF REPORT * ML=Testing performed at Main Lab DEPARTMENT OF PATHOLOGY, [address] [place] [address] Ayaz Franco M.D. Director [facility] # [id number] 78 Because ethnic data is not always readily available, this report includes an eGFR for both -Americans and non- Americans. The National Kidney Disease Education Program (NKDEP) does not endorse the use of the MDRD equation for patients that are not between the ages of 18 and 70, are , have extremes of body size, muscle mass, or nutritional status, or are non- or non-. According to the National Kidney Foundation, irrespective of diagnosis, the stage of the disease is based on the level of kidney function: Stage Description GFR(mL/min/1.73 m(2)) 1 Kidney damage with normal or decreased GFR 90 2 Kidney damage with mild decrease in GFR 60-89 3 Moderate decrease in GFR 30-59 4 Severe decrease in GFR 15-29 5 Kidney failure <15 (or dialysis) 79 Normal Range 180 to 914 Indeterminate Range 145 to 180 Deficient Range <145 80 Results suggest response to immunization or prior exposure to the virus. REFERENCE VALUE Vaccinated: Positive (>=1.1 AI) Unvaccinated: Negative (<=0.8 AI) 81 Test Performed by: [place] [address] Order Editor: Shalom Snow II, M.D., Ph.D. 82 Please note: The following may produce a false positive D Dimer test: - Rheumatoid factor greater than 60 IU/ml - Plasma hemoglobin greater than 0.05 gm/dl - Bilirubin greater than 50 mg/dl - Lipids greater than 1000 mg/dl - FDP greater than 20 ug/ml 83 REFERENCE VALUE Cutoff: 500 84 REFERENCE VALUE Cutoff: 200 85 Presumptive Positive Drug confirmation to follow. Presumptive Positive means that the screening method is positive, but the test needs to be run by a confirmatory method before being finalized. REFERENCE VALUE Cutoff: 200 86 REFERENCE VALUE Cutoff: 150 87 REFERENCE VALUE Cutoff: 150 88 REFERENCE VALUE Cutoff: 300 89 ADDITIONAL INFORMATION This report is intended for use in clinical monitoring or management of patients. It is not intended for use in employment-related testing. 90 REFERENCE VALUE Cutoff: 100 ADDITIONAL INFORMATION This report is intended for use in clinical monitoring or management of patients. It is not intended for use in employment-related testing. Test Performed by: [address] [address] Order Editor: Shalom Snow II, M.D., Ph.D. 91 REFERENCE VALUE Cutoff: 100 92 REFERENCE VALUE Cutoff: 100 93 REFERENCE VALUE Cutoff: 100 94 REFERENCE VALUE Cutoff: 100 95 REFERENCE VALUE Cutoff: 100 96 REFERENCE VALUE Cutoff: 100 97 REFERENCE VALUE Cutoff: 100 98 REFERENCE VALUE Cutoff: 100 99 ADDITIONAL INFORMATION This report is intended for use in clinical monitoring and management of patients. It is not intended for use in employment-related testing. Test Performed by: [facility] - [address] [address] Order Editor: Shalom Snow II, M.D., Ph.D. [address] SOOD by [id number] at 1707 on 07/02/14. Results read back accurately. Please note: The following may produce a false positive D Dimer test: - Rheumatoid factor greater than 60 IU/ml - Plasma hemoglobin greater than 0.05 gm/dl - Bilirubin greater than 50 mg/dl - Lipids greater than 1000 mg/dl - FDP greater than 20 ug/ml 101 Because ethnic data is not always readily available, this report includes an eGFR for both -Americans and non- Americans. The National Kidney Disease Education Program (NKDEP) does not endorse the use of the MDRD equation for patients that are not between the ages of 18 and 70, are , have extremes of body size, muscle mass, or nutritional status, or are non- or non-. According to the National Kidney Foundation, irrespective of diagnosis, the stage of the disease is based on the level of kidney function: Stage Description GFR(mL/min/1.73 m(2)) 1 Kidney damage with normal or decreased GFR 90 2 Kidney damage with mild decrease in GFR 60-89 3 Moderate decrease in GFR 30-59 4 Severe decrease in GFR 15-29 5 Kidney failure <15 (or dialysis) 102 Presumptive Positive 103 The urine specimen was tested at the listed cutoffs: Drug class test level (ng/ml) Amphetamines 300 Barbituates 200 Benzodiazepine metabolites 200 Cocaine metabolites 300 Cannabinoids 25 Opiates 200 Pcp 25 This is a screening procedure. Positive results are not confirmed. Specimen was received without chain of custody. Results should be used for medical purposes only. 104 This test detects intact HCG only and is indicated for the early detection of . 105 Because ethnic data is not always readily available, this report includes an eGFR for both -Americans and non- Americans. The National Kidney Disease Education Program (NKDEP) does not endorse the use of the MDRD equation for patients that are not between the ages of 18 and 70, are , have extremes of body size, muscle mass, or nutritional status, or are non- or non-. According to the National Kidney Foundation, irrespective of diagnosis, the stage of the disease is based on the level of kidney function: Stage Description GFR(mL/min/1.73 m(2)) 1 Kidney damage with normal or decreased GFR 90 2 Kidney damage with mild decrease in GFR 60-89 3 Moderate decrease in GFR 30-59 4 Severe decrease in GFR 15-29 5 Kidney failure <15 (or dialysis) 106 Therapeutic concentration: <50 ug/mL Toxic concentration: >120 ug/mL 107 *Ascorbic acid is present which may interfere with detection of blood. 108 Presumptive Positive 109 The urine specimen was tested at the listed cutoffs: Drug class test level (ng/ml) Amphetamines 300 Barbituates 200 Benzodiazepine metabolites 200 Cocaine metabolites 300 Cannabinoids 25 Opiates 200 Pcp 25 This is a screening procedure. Positive results are not confirmed. Specimen was received without chain of custody. Results should be used for medical purposes only. 110 Verbal to [id number] ED by [id number] at 1418 on 02/12/14. Results read back accurately. Please note: The following may produce a false positive D Dimer test: - Rheumatoid factor greater than 60 IU/ml - Plasma hemoglobin greater than 0.05 gm/dl - Bilirubin greater than 50 mg/dl - Lipids greater than 1000 mg/dl - FDP greater than 20 ug/ml 111 Because ethnic data is not always readily available, this report includes an eGFR for both -Americans and non- Americans. The National Kidney Disease Education Program (NKDEP) does not endorse the use of the MDRD equation for patients that are not between the ages of 18 and 70, are , have extremes of body size, muscle mass, or nutritional status, or are non- or non-. According to the National Kidney Foundation, irrespective of diagnosis, the stage of the disease is based on the level of kidney function: Stage Description GFR(mL/min/1.73 m(2)) 1 Kidney damage with normal or decreased GFR 90 2 Kidney damage with mild decrease in GFR 60-89 3 Moderate decrease in GFR 30-59 4 Severe decrease in GFR 15-29 5 Kidney failure <15 (or dialysis) 112 Reference Range and Interpretation: TnI (ng/mL) Interpretation Less Than 0.03 ng/mL Not supportive of diagnosis of NM 0.03 - 0.50 ng/mL Indeterminate: suggest serial studies if clinically indicated. Greater than 0.5 ng/mL Consistent with diagnosis of NM 113 Therapeutic concentration: <50 ug/mL Toxic concentration: >120 ug/mL 114 RUN DATE: 01/05/13 [facility] LAB LIVE PAGE 1 RUN TIME: [address] [place] [address] Specimen Inquiry Name: CHAYO HUANG : [address]: Cresencio Camarena Acct: [id number] Unit: [id number] AGE: 52 Location: ED Re01/03/13 SEX: F Status: DEP ER SPEC: [id number] LION: 01/03/[address]: Cresencio Rodriguez DO REQ: [id number] RECD: 01/03/13 STATUS: GIANCARLO KEENAN DR: Jose R Viramontes MD _ SOURCE: ABDOMEN SPDESC: ORDERED: Culture Stain COMMENTS: Comment: suprapubic soft tissue abscess Procedure Result Verified Site Wound/Misc Gram Stain Final 01/03/13- 1439 ML 4+ Polys 3+ Gram Positive Cocci Wound/Misc Culture Final 01/05/13- 0950 ML Organism 1 MRSA Quantity 2+ Consistent with previous results. 1. MRSA M.I.C. RX --------- ------ Penicillin >=0.5 R Clindamycin <=0.25 S Erythromycin >=8 R Gentamicin <=0.5 S Linezolid 2 S Nitrofurantoin 32 S Oxacillin >=4 R * Quinupristin/Dalfopristin <=0.25 S Rifampin <=0.5 S Tetracycline <=1 S Doxycycline - Deduced S * Minocycline - Deduced S Trimethoprim/Sulfamethoxazole <=10 S Vancomycin 1 S Imipenem-Deduced R CONTINUED ON NEXT PAGE * ML=Testing performed at Main Lab DEPARTMENT OF PATHOLOGY, [facility] [employer] [place] [address] Ayaz Franco M.D. Director [facility] Permit #[id number] RUN DATE: 01/05/13 [facility] LAB LIVE PAGE 2 RUN TIME: 09 [facility] [place] [place], [place] [address] Specimen Inquiry Patient: CHAYO HUANG [id number] (Continued) Specimen: [id number] Collected: 01/03/13 Received: 01/03/13 (Continued) Procedure Result Verified Site Wound/Misc Culture Final (continued) 01/05/13949 1. MRSA (continued) M.I.C. RX --------- ------ * Ampicillin/Sulbactam-Deduced R Cefazolin-Deduced R * These antibiotics are not available in the [facility] Formulary Contact the Microbiology Department for any additional antibiotic reporting. END OF REPORT * ML=Testing performed at Main Lab DEPARTMENT OF PATHOLOGY, [address] [place] [address] Ayaz Franco M.D. Director [facility] Permit #[id number] 115 Because ethnic data is not always readily available, this report includes an eGFR for both -Americans and non- Americans. The National Kidney Disease Education Program (NKDEP) does not endorse the use of the MDRD equation for patients that are not between the ages of 18 and 70, are , have extremes of body size, muscle mass, or nutritional status, or are non- or non-. According to the National Kidney Foundation, irrespective of diagnosis, the stage of the disease is based on the level of kidney function: Stage Description GFR(mL/min/1.73 m(2)) 1 Kidney damage with normal or decreased GFR 90 2 Kidney damage with mild decrease in GFR 60-89 3 Moderate decrease in GFR 30-59 4 Severe decrease in GFR 15-29 5 Kidney failure <15 (or dialysis) 116 RUN DATE: 12/01/12 [facility] LAB LIVE PAGE 1 RUN TIME: [address] [place] [address] Specimen Inquiry Name: SALCHAYO A : [address]: Jose Juan Leyva MD Acct: [id number] Unit: [id number] AGE: 52 Location: [facility] Re11/29/12 SEX: F Status: DEP ER SPEC: [id number] LION: 11/29/12-57 [facility] DR: Jose Juan Leyva MD REQ: [id number] RECD: 11/29/12 STATUS: GIANCARLO KEENAN DR: BAUDILIO Viramontes MD _ SOURCE: THROAT SPDESC: ORDERED: Throat Beta Str Procedure Result Verified Site Throat Beta Strep Culture Final 12/01/12- 0758 ML Negative For Group A Beta Streptococcus END OF REPORT * ML=Testing performed at Main Lab DEPARTMENT OF PATHOLOGY, [address] [place] [address] Ayaz Franco M.D. Director [facility] Permit #[id number] 117 This test detects intact HCG only and is indicated for the early detection of . 118 Comment: shannan 119 -- REFERENCE VALUE -- Cutoff: 500 120 -- REFERENCE VALUE -- Cutoff: 200 121 -- REFERENCE VALUE -- Cutoff: 200 122 -- REFERENCE VALUE -- Cutoff: 300 123 -- REFERENCE VALUE -- Cutoff: 300 124 -- REFERENCE VALUE -- Cutoff: 300 125 -- REFERENCE VALUE -- Cutoff: 300 126 This report is intended for use in clinical monitoring or management of patients. It is not intended for use in employment-related testing. Test Performed by: [facility] [address] [place] [address] Order Editor: Diego Valentine III, M.D. 127 -- REFERENCE VALUE -- Cutoff: 300 128 -- REFERENCE VALUE -- Cutoff: 100 129 -- REFERENCE VALUE -- Cutoff: 100 130 -- REFERENCE VALUE -- Cutoff: 100 131 -- REFERENCE VALUE -- Cutoff: 100 132 -- REFERENCE VALUE -- Cutoff: 100 133 This report is intended for use in clinical monitoring and management of patients. It is not intended for use in employment-related testing. Test Performed by: [address] [address] Order Editor: Diego Valentine III, M.D. Procedures Date CPT Code Description Status 12/12/2017 06803 Arthroscopy,Knee,Meniscectomy Medial Or Lateral Completed 12/12/2017 55812 Arthroscopy,Knee,Meniscectomy Medial Or Lateral Completed 12/05/2017 01294 EKG Tracing & Interpretation Completed 11/08/2017 Mammogram Completed 01/04/2017 43464 ECHO Transthorasic Realtime 2D W Doppler & Color Flow Completed Hosp 11/01/2015 Mammogram Completed 10/13/2015 Colonoscopy Completed 09/07/2015 38551 Stress Test Completed 09/07/2015 66675 Stress Test Completed 08/09/2015 36897 EKG Tracing & Interpretation Completed 09/19/2012 Mammogram Completed 11/21/2011 15623 Rad Exam; Ankle Limited Completed Encounters Type Date Location Provider CPT E/M Dx Office Visit 01/24/2018 2:00p [facility] Cori Maranda, [address] M17.0 - [place] RPA-C M25.561 M25.562 Office Visit 12/05/2017 11:00a [facility] Jose R Viramontes, 12534 Z01.818 Medicine - [place] Carty,FACP S83.221D I10 I82.502 Z79.01 Office Visit 11/22/2017 1:45p [place] [address] S83.221A Of C.M.Solange M25.461 M17.11 Office Visit 11/11/2017 3:00p [place] [address] S83.221A Of C.M.Solange M25.561 M25.461 Office Visit 10/14/2017 2:30p [facility] [place] [address] M25.461 C.M.Solange S83.221A Office Visit 10/14/2017 1:00p [facility] Nanyc Campbell, N.P. 22814 M25.561 - [place] Office Visit 06/06/2017 4:10p [facility] Jose R Viramontes, 21478 J45.41 - [place] Ontiveros M.D.,FACP Office Visit 04/25/2017 1:00p [facility] Michael Thompson, 94712 J06.9 - Jessica Carty Office Visit 01/22/2017 4:40p [facility] Jose R Viramontes, 19737 I63.9 - Sel[place] Carty,FACP I10 F33.2 Office Visit 01/04/2017 4:23p [facility] Harpal Chakraborty, 95263 H81.20 Machelle Z86.73 Office Visit 01/04/2017 7:26a [facility],pc Marion Lebron, 53902 H81.20 Hospitalists D.OFani N18.3 I10 Z86.711 Office Visit 01/03/2017 7:26a [facility] Zayra Plaza, 68285 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.9 Assoc,pc CDL B DRIVER Hospitalists N18.3 Z86.711 I10 Office Visit 01/03/2017 4:22p [facility] Harpal Chakraborty, 57632 H81.20 Machelle Z86.73 Office Visit 10/09/2016 3:00p [facility] Jose R Viramontes, 00243 Z00.01 - Sel[place] Carty,FACP F33.2 I82.502 Z12.31 E72.19 N18.1 Office Visit 09/18/2016 2:00p [facility] Jose R Viramontes, 04279 I82.502 Medicine - [place] Sanon.Gael,FACP F33.2 Z11.1 S93.401D Office Visit 07/17/2016 2:40p [facility] Jose R Viramontes, 76753 I82.442 Medicine - Selwyn Sanon.Gael,FACP F33.2 S93.401D Office Visit 04/10/2016 2:40p [facility] Jose R Viramontes, 16231 I82.442 Medicine - [place] Sanon.DFani,FACP Q79.6 Z23 Office Visit 04/03/2016 9:30a [facility] Duane Gabriel, 44860 S93.401D Of Patricia Carty R60.0 Office Visit 02/07/2016 4:40p [facility] Jose R Gael Pierpont, 68087 F33.2 - Selwyn Carty,FACP I10 Office Visit 02/03/2016 3:10p [facility] [place], 46661 G57.51 C.Gonzalo Carty Office Visit 01/13/2016 3:10p [facility] [place], 46854 G57.51 C.Gonzalo Carty Office Visit 12/27/2015 3:10p [facility] [place], 63381 G57.51 C.Gonzalo Carty Office Visit 11/10/2015 10:30a [facility] [place], 17961 M79.671 Patricia Carty Office Visit 10/25/2015 2:40p [facility] Jose R Gael Viramontes, 63956 F33.2 - Selwyn Carty,FACP I10 N95.1 Z12.31 Office Visit 09/20/2015 1:40p [facility] Jose R Viramontes, 01145 R07.9 - Selwyn Carty,FACP F33.2 T50.B96A I10 Z11.1 Office Visit 08/09/2015 2:00p [facility] Jose R Gael Viramontes, 12962 R07.9 - Selwyn Carty,FACP F33.2 Z12.11 Office Visit 02/15/2015 4:20p [facility] [place], 71616 729.5 C.M.A. M.D. Office Visit 01/07/2015 3:20p [facility] [place], 56795 727.67 C.M.A. M.D. Office Visit 12/22/2014 3:20p [facility] [place], 15682 727.67 C.M.A. M.D. Office Visit 11/30/2014 4:10p [facility] [place], 52139 727.67 C.M.A. M.D. Office Visit 11/29/2014 3:30p [facility] Joaquín [place] [address] 844.9 - Selwyn 729.5 Office Visit 06/23/2014 3:40p [facility] Jose R Viramontes, 37111 296.33 - Selwyn Carty,FACP 415.19 Office Visit 04/29/2014 2:30p [facility] Jerica Robles, N.P. 65748 296.33 - [place] Office Visit 03/24/2014 2:00p [facility] Jose R Viramontes, 49135 493.92 - Selwyn Carty,FACP 296.33 415.19 V04.81 V03.82 Office Visit 02/22/2014 1:40p [facility] Jose R Viramontes, 79195 415.19 - Selwyn Carty,FACP 296.33 V76.51 Office Visit 02/13/2014 3:16p [facility], Harpal Torres 25897 415.19 Hospitalists Machelle Roy 780.2 300.00 401.9 Office Visit 02/12/2014 3:15p [facility], Li Crow N.P. 27472 415.19 Hospitalists 780.2 300.00 401.9 Office Visit 01/05/2013 4:40p [facility] Gama Rosario, 03198 110.8 - Selwyn Carty Office Visit 12/01/2012 2:00p [facility] Jose R Viramontes, 72450 493.92 - [place] Carty,FACP Office Visit 11/24/2012 4:11p [facility] Alicia Esposito, 71677 682.6 Assoc, Hospitalists MZeferino 401.9 Office Visit 11/23/2012 4:11p [facility]pc Alicia Esposito, 13313 682.6 Hospitalists M.DFani 401.9 Office Visit 11/22/2012 4:10p [facility] Alicia Esposito, 97862 682.6 Hospitalists MFaniDFani 401.9 Office Visit 09/04/2012 4:30p [facility] Jerica Robles, N.PFani 82515 465.9 - [place] V76.19 V76.51 Office Visit 05/13/2012 10:50a [facility] Jose R Viramontes, 29985 296.23 - [place] Carty,FACP Office Visit 04/17/2012 3:00p [facility] OVIDIO Galdamez 71470 844.9 Of C.M.AFani Office Visit 02/14/2012 10:30a [facility] Jose R Viramontes, 39127 296.30 - Selwyn Carty,[facility] 401.1 726.71 V76.19 V76.51 V04.81 Office Visit 12/19/2011 1:00p [facility] [place], 81088 726.71 Patricia Carty Office Visit 11/21/2011 2:00p [facility] [place], 29170 726.71 C.Gonzalo Carty Office Visit 11/16/2011 3:00p [facility] Jose R Viramontes, 11808 296.23 - Selwyn Carty,FACP 305.03 401.1 Office Visit 06/27/2009 1:30a [facility] Ken Villanueva, 97269 305.90 Assoc, Hospitalists Machelle Office Visit 06/26/2009 12:15a [facility] Demetrice Stallworth, 49239 977.9 Assoc, Edilson Carty V62.84 Plan of Care Future Appointment(s):03/18/2018 10:30 am - Krish Reyes MD at [facility].05/06/2018 2:20 pm - Jose R Viramontes M.D.,FACP at [facility]02/24/2018 - Krish Reyes, MDS83.222A Prph tear of medial meniscus, current injury, l knee, initFollow up:Follow Up: 13-15 days sizmnfH98.262A Prph tear of lat mensc, current injury, left knee, initM25.462 Effusion, left knee
--- NOTE | 2018-03-10 21:04 | RAD ---
EXAM: US Duplex Left Lower Extremity Veins CLINICAL HISTORY: 57 years old, female; Pain; Leg, lower; Left; Prior surgery; Surgery date: 3-7 days post-operative; Surgery type: Left knee repair 03/06/2018; Patient HX: Dvt rle, pe 4 yrs ago; Additional info: Pain after surgery TECHNIQUE: Real-time duplex ultrasound scan of the left lower extremity veins integrating B-mode two-dimensional vascular structure, Doppler spectral analysis, color flow Doppler imaging and compression. COMPARISON: No relevant prior studies available. FINDINGS: Deep veins: There is thrombus within one of the peroneal veins in the proximal calf. No DVT in the visualized common femoral, femoral, proximal deep femoral or popliteal veins. The veins demonstrate normal color flow, are normally compressible, with normal phasic flow and/or augmentation response. Superficial veins: Unremarkable. No thrombus in the visualized great saphenous vein. Soft tissues: No acute findings. No popliteal cyst. IMPRESSION: Positive for a small segment of DVT involving the peroneal veins in the proximal calf. No DVT above the knee.
--- NOTE | 2018-03-10 22:46 | ED ---
Lower Extremity - HPI Summary HPI Summary: Complains of swelling and pain in left calf 2 days, worsened past 6 hours. History of meniscus repair left knee , also history of PE and DVT. Patient normally takes Xarelto 20 mg, was off anti-coag from Saturday through Saturday. Restarted anti-coag yesterday. Denies trauma, fever, cough, sore throat, CP, SOB, N/V/D, abdominal pain, change in urine, change in BM. Medical history is PE, HTN, DVT. - History of Current Complaint Chief Complaint: EDExtremityLower Stated Complaint: LT LEG PAIN AND SWOLLEN Time Seen by Provider: 03/10/18 22:28 Hx Obtained From: Patient Hx Last Menstrual Period: jul 2012 Mechanism Of Injury: Unknown Onset/Duration: Days Severity Initially: Mild Severity Currently: Mild Pain Intensity: 3 Pain Scale Used: 0-10 Numeric Timing: Constant Location: Is Discrete @ Character Of Pain: Sharp, Aching Associated Signs And Symptoms: Positive: Swelling. Negative: Knee Pain Aggravating Factor(s): Standing, Ambulation, Weight Bearing Alleviating Factor(s): Rest - Allergies/Home Medications Allergies/Adverse Reactions: Allergies Allergy/AdvReac Type Severity Reaction Status Date / Time cortisone Allergy Severe rash, n/v Verified 03/10/18 18:47 PMH/Surg Hx/FS Hx/Imm Hx Endocrine/Hematology History: Reports: Hx Anticoagulant Therapy, Hx Anemia - HISTORY OF Denies: Hx Diabetes Cardiovascular History: Reports: Hx Hypertension - on meds, Other Cardiovascular Problems/Disorders - hx of DVT's right leg 2 years ago, and blood clot in head 1 years ago Denies: Hx Pacemaker/ICD Respiratory History: Reports: Hx Asthma - will bring inhaler- seasonal, Hx Pulmonary Embolism - hx of approx 4 years ago Denies: Other Respiratory Problems/Disorders GI History: Denies: Other GI Disorders History: Reports: Other Problems/Disorders - HX OF UTI, NONE NOW Denies: Hx Renal Disease Musculoskeletal History: Reports: Hx Arthritis - mercy knees- Jj-Danlos, Hx Tendonitis - RIGHT FOOT Sensory History: Reports: Hx Contacts or Glasses - both- will wear glasses day of surgery Denies: Hx Hearing Aid Opthamlomology History: Reports: Hx Contacts or Glasses - both- will wear glasses day of surgery Neurological History: Reports: Hx Headaches, Hx Migraine - has prn meds Denies: Other Neuro Impairments/Disorders Psychiatric History: Reports: Hx Anxiety, Hx Depression, Hx Post Traumatic Stress Disorder, Hx Substance Abuse - not for 6 years Denies: Hx Eating Disorder, Hx Panic Disorder, Hx of Violent Episodes Against Others - Cancer History Hx Chemotherapy: No Hx Radiation Therapy: No - Surgical History Surgery Procedure, Year, and Place: T/A AGE 9, [facility]. 1998 Left foot adenoma, [facility]. 2002 benign lumpectomy right BREAST,. D&C and uterine ablation 2010. right knee arthroscopy AND partial meiscectomy 12/2017 Hx Anesthesia Reactions: No - sometimes needs to use a little extra r/t Ehler- Danlos- wakes up before end Infectious Disease History: No Infectious Disease History: Reports: Hx of Known/Suspected MRSA - 12/20 abdominal wound Denies: Hx Clostridium Difficile, Hx Hepatitis, Hx Human Immunodeficiency Virus (HIV), Hx Shingles, Hx Tuberculosis, Hx Known/Suspected VRE, Hx Known/ Suspected VRSA, History Other Infectious Disease, Traveled Outside the [place] in Last 30 Days - Family History Known Family History: Positive: Unknown, Cardiac Disease Negative: Other - JOINT LAXITY Family History: Mother: Heart failure. Father: Stroke - Social History Alcohol Use: None Substance Use Type: Reports: None Hx Tobacco Use: Yes Smoking Status (MU): Former Smoker Amount Used/How Often: pack a day for 10 yrs Review of Systems Constitutional: Negative Eyes: Negative ENT: Negative Cardiovascular: Negative Respiratory: Negative Gastrointestinal: Negative Genitourinary: Negative Musculoskeletal: Other Skin: Negative Neurological: Negative Psychological: Normal All Other Systems Reviewed And Are Negative: Yes Physical Exam - Summary Physical Exam Summary: No erythema, ecchymosis, deformity noted to left lower extremity. Positive swelling left calf. Surgical incision sites on left knee healing well, no purulent discharge or erythema. Left calf tender, no tightness noted. PMS intact distally Triage Information Reviewed: Yes Vital Signs On Initial Exam: Initial Vitals Temp Pulse Resp BP Pulse Ox 99.2 F 87 19 101/88 99 03/10/18 18:44 03/10/18 18:44 03/10/18 18:44 03/10/18 18:44 03/10/18 18:44 Vital Signs Reviewed: Yes Appearance: Positive: Well-Appearing Skin: Positive: Warm Head/Face: Positive: Normal Head/Face Inspection Eyes: Positive: Normal Neck: Positive: Supple Respiratory/Lung Sounds: Positive: Clear to Auscultation Cardiovascular: Positive: Normal Abdomen Description: Positive: Nontender Musculoskeletal: Positive: Normal Neurological: Positive: Normal Psychiatric: Positive: Normal AVPU Assessment: Alert - [place] Coma Scale Best Eye Response: 4 - Spontaneous Best Motor Response: 6 - Obeys Commands Best Verbal Response: 5 - Oriented Coma Scale Total: 15 Diagnostics - Vital Signs Vital Signs Temp Pulse Resp BP Pulse Ox 03/10/18 20:55 101 F 87 18 130/60 99 03/10/18 18:44 99.2 F 87 19 101/88 99 - Laboratory Lab Statement: Any lab studies that have been ordered have been reviewed, and results considered in the medical decision making process. - Ultrasound No standard instances Ultrasound Interpretation: Positive (See Comments) - dvt peroneal vein Ultrasound Interpretation Completed By: Radiologist Lower Extremity Course/Dx - Course Course Of Treatment: Complains of swelling and pain in left calf 2 days, worsened past 6 hours. History of meniscus repair left knee , also history of PE and DVT. Patient normally takes Xarelto 20 mg, was off anti-coag from Saturday through Saturday. Restarted anti-coag yesterday. Denies trauma, fever, cough, sore throat, CP, SOB, N/V/D, abdominal pain, change in urine, change in BM. Medical history is PE, HTN, DVT. Physical exam:No erythema, ecchymosis, deformity noted to left lower extremity. Positive swelling left calf. Surgical incision sites on left knee healing well, no purulent discharge or erythema. Left calf tender, no tightness noted. PMS intact distally. Patient restarted her normal dose anticoag Xarelto 20 mg yesterday. Medical Xarelto was stopped for 5 days for ligament repair on left knee. Discussed patient with Dr. Early who recommends starting Xarelto 15 mg twice a day for 3 weeks due to prio hx of DVT and PE. Patient understands and approved the plan. - Diagnoses Provider Diagnoses: DVT (deep venous thrombosis) Discharge - Sign-Out/Discharge Documenting (check all that apply): Patient Departure - Discharge Plan Condition: Stable Disposition: HOME Prescriptions: Rivaroxaban TAB(*) [Xarelto 15 mg(*)] 15 mg PO DAILY 21 Days #42 tab Patient Education Materials: Deep Vein Thrombosis (ED) Referrals: Jose R Viramontes MD [Primary Care Provider] - Additional Instructions: Stopped taking her normal dose of Xarelto 20 mg. Instead, take xarelto 15mg BID x 3 weeks. Follow-up ultrasound in 2 weeks. Return to the ED for any new or worsening symptoms - Billing Disposition and Condition Condition: STABLE Disposition: Home
[2018-03-10 23:01] VITALS: BP 145/84
== END 2018-03-10 23:00 | disposition home or self-care (01) ==
LOC: ED 18:43
DX: I82.4Z2 Acute embolism and thrombosis of unspecified deep veins of left distal lower extremity (principal); Z79.01 Long term (current) use of anticoagulants; Z87.891 Personal history of nicotine dependence
CPT/HCPCS: 99282

== ENCOUNTER 2018-04-10 17:53 | Emergency (ER) | payer MEDICAID, MEDICARE ==
--- OUTSIDE RECORDS SUMMARY | 2018-04-10 17:59 | XMS REPORT ---
:1960 External Reference #:[id number] Author Organization [facility] Address [address] [place] [address] Phone [phone] Care Team Providers Name Role Phone Jose R Viramontes MD Primary Care Physician Unavailable Payers Type Date Identification Numbers Payment Provider Subscriber Medicare Primary Effective: Policy Number: Medicare Chayo Banerjee 2011 [id number] Sal PayID: [id number] [address] [place] [address] Medigap Part B Effective: 2011 Policy Number: Medicaid Chayo Huang [id number] PayID: [id number] [address] [place] [address] Problems Date Description Provider Status Onset: 04/10/2016 [...] Stroke Mother Cancer kidney Mother due to [place] () Siblings 4 3 now First Brother due to Cancer, Bladder () Social History Type Date Description Comments Marital Status Single Occupation Currently Working [employer] Current leave of absence (October 2017) Cigarette [...] by Santos 0000 s mouth three Arslan, 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 Viibryd 09/19/ Hx [...] 60cap 1 tab po tid 465.9 Jerica Sadqi 2012 - s prn Travis, 12/01/ N.P. 2012 Sertraline HCL 05/13/ Hx Tablets 100mg 45tab 1.5 po qd 296.23 Jose R 2011 Gael Viramontes, 06/23/ Machelle,FACP 2015 Naprosyn 04/17/ Hx Tablets 500mg 60tab twice daily Duane 2011 - s with food Harvey, 09/04/ prn Machelle 2012 [place] 04/17/ Hx Tablets 5-325mg 40tab 1-2 po [...] prn Gael Viramontes, 10/28/ Machelle,FACP 2012 Ibuprofen 00// Hx Tablets 400mg by mouth Unknown 0000 [...] Viramontes,FACP PPD Administered Injection Joaquín Buck, 5 [employer] Immunizations CPT Code Status Date Vaccine Lot # [id number] Given 05/23/2017 Influenza Virus Vaccine, Quadrivalent, Split, Preservative Free 03176 Given 04/10/2016 Influenza Virus Vaccine, Quadrivalent, Split [id number] Virus, Im Use 05943 Given 01/21/2015 Measles Mumps And Rubella MMR [id number] 59956 Given 03/24/2014 Pneumonia Vaccine [id number] 40606 Given 03/24/2014 Flu Vaccine Split Virus Preservative Free For [id number] Indiv 3Yr Older Q2035 Given 03/06/2013 Afluria Vaccine [id number] Given 02/14/2012 Fluzone Vaccine [id number] Vital Signs Date Vital Result Comment 03/18/2018 Height 69 inches 5'9" Weight 225.00 lb Heart Rate 64 /min Respiratory Rate 17 /min Body Temperature 98.7 F Pain Level 4 BMI (Body Mass Index) 33.2 kg/m2 02/24/2018 Height 69 inches 5'9" Weight 225.00 [...] Diastolic Sitting 86 mmHg Pain Level 6 6-7/10 BMI (Body Mass Index) 33.9 kg/m2 10/25/2015 [...] 50 5 Creatinine, Urine 84.9 mg/dL Specific Slater 1.008 pH 7.4 Oxidants Negative 6 Adulterants Comment Normal Codeine, Ur Not Detected ng/mL Cutoff: 25 7 Sazhtng-5-fvab-glucuronide, Ur Not Detected ng/mL 8 Morphine, Ur Not Detected ng/mL Cutoff: 25 9 Jhfyjflt-5-kobz-glucuronide, U Not Detected ng/mL 10 6-monoacetylmorphine, Ur Not Detected ng/mL Cutoff: 25 11 Hydrocodone, Ur Present ng/mL Cutoff: 25 12 Norhydrocodone, Ur Present ng/mL Cutoff: 25 13 Dihydrocodeine, Ur Not Detected ng/mL Cutoff: 25 14 Hydromorphone, Ur Not Detected ng/mL Cutoff: 25 15 Tqtjnkefqtgni0hbhcozbatosrgcd Not Detected ng/mL 16 Oxycodone, Ur Not Detected ng/mL Cutoff: 25 17 Noroxycodone, Ur Not Detected ng/mL Cutoff: 25 18 Oxymorphone, Ur Not Detected ng/mL Cutoff: 25 19 Auivumzqzhj-1-pvrf-glucuronide Not Detected ng/mL 20 Noroxymorphone, Ur Not Detected ng/mL Cutoff: 25 21 Fentanyl, Ur Not Detected ng/mL Cutoff: 2 22 Norfentanyl, Ur Not Detected ng/mL Cutoff: 2 23 Meperidine, Ur Not Detected ng/mL Cutoff: 25 24 Normeperidine, Ur Not Detected ng/mL Cutoff: 25 25 Naloxone, Ur Not Detected ng/mL Cutoff: 25 26 Rinuancm-4-qbun-glucuronide, U Not Detected ng/mL 27 Methadone, Ur [...] Ur Not Detected ng/mL Cutoff: 50 35 Sxrctcxuhw-letf-bpgcnwdrlxn, U Not Detected ng/mL 36 Buprenorphine, Ur [...] Color Straw Urine Appearance Clear Urine Specific Slater 1.004 Low 1.010-1.030 Urine pH 8.0 5-9 [...] Comment 64 Factor II (Prothrombin) 04/20/2016 Prothrombin 34656 Negative Negative Genoty Mutation Prothrombin B35552p Interp See Comment 65 Prothrombin Mutation Review By See Comment 66 Laboratory test finding 04/20/2016 Homocysteine 16 mcmol/L 67 Factor 5 Leiden Mutation 04/12/2016 Factor V Leiden Mutation Negative Negative Factor V Leiden Interpretation See Comment 68 Factor V Leiden Reviewed By See Comment 69 Factor II (Prothrombin) 04/12/2016 Prothrombin 69879 Negative Negative Genoty Mutation Prothrombin J78909r Interp See Comment 70 Prothrombin Mutation Review [...] Color Yellow Urine Appearance Clear Urine Specific Slater 1.014 1.010-1.030 Urine pH 5.0 5-9 Urine [...] Color Yellow Urine Appearance Cloudy Urine Specific Slater 1.016 1.010-1.030 Urine pH 5.0 5-9 Urine [...] 100 11 Metabolite of heroin 12 Lortab, [place], Vicodin; Also a very minor metabolite of [...] developed and its performance characteristics determined by [facility] in a manner consistent with CLIA requirements. This test has not been cleared or approved by the U.S. Food and Drug Administration. Test Performed by: [facility] [address] [place] [address] 41 Desirable: <150 Borderline High: 150-199 High: [...] 5 Kidney failure <15 (or dialysis) 52 [facility] Severe Sepsis and Septic Shock Management [...] developed and its performance characteristics determined by [facility] in a manner consistent with CLIA requirements. This test has not been cleared or approved by the U.S. Food and Drug Administration. Test Performed by: [place] [id number] 58 Because ethnic data is not always [...] Deficient Range <145 60 Test Performed by: [address] [address] [place] Worker: Shalom Snow II, M.D., Ph.D. 61 ADDITIONAL INFORMATION This test was developed and its performance characteristics determined by [facility] in a manner consistent with CLIA requirements. This test has not been cleared or approved by the U.S. Food and Drug Administration. 62 ADDITIONAL INFORMATION This test was developed and its performance characteristics determined by [facility] in a manner consistent with CLIA requirements. This test has not been cleared or approved by the U.S. Food and Drug Administration. Test Performed by: [place] [address] [employer] [place] Worker: Shalom Snow II, M.D., Ph.D. 63 This individual DOES NOT have the factor V Leiden (R506Q) mutation. Although the factor V Leiden mutation is absent, the individual may have other genetic and environmental risk factors for thrombosis. If clinically indicated, consider Coagulation Consultation 23770 (Thrombophilia Profile) to complete the evaluation for an inherited or acquired thrombosing disorder (i.e., thrombophilia). ADDITIONAL INFORMATION This test is a direct mutation analysis using PCR amplification, signal generation and release by cleavage of sequence specific alleles ([employer], [employer], [place], [place]). 64 RESULT: Ramirez Frankel M.D., Ph.D. Test Performed by: [place] [address] [employer] [place] Worker: Shalom Snow II, M.D., Ph.D. 65 This individual DOES NOT have the Prothrombin L84389P mutation. Although the Prothrombin V38618K mutation is absent, the individual may have other genetic and environmental risk factors for thrombosis. If clinically indicated, suggest Coagulation Consultation 83047 (Thrombophilia Profile) to complete the evaluation for an inherited or acquired thrombosing disorder (i.e., thrombophilia). Consider genetic consultation and counseling of potentially affected family members regarding laboratory testing. ADDITIONAL INFORMATION This test is a direct mutation analysis using PCR amplification, signal generation and release by cleavage of sequence specific alleles ([employer], [employer], [place]). 66 RESULT: Ramirez Frankel M.D., Ph.D. Test Performed by: [place] [address] [employer] Worker: Shalom Snow II, M.D., Ph.D. 67 The [...] REFERENCE VALUE <=13 (Fasting) Test Performed by: [place] [address] [employer] Worker: Shalom Snow II, M.D., Ph.D. 68 This individual DOES NOT have the factor V Leiden (R506Q) mutation. Although the factor V Leiden mutation is absent, the individual may have other genetic and environmental risk factors for thrombosis. If clinically indicated, consider Coagulation Consultation 81085 (Thrombophilia Profile) to complete the evaluation for an inherited or acquired thrombosing disorder (i.e., thrombophilia). ADDITIONAL INFORMATION This test is a direct mutation analysis using PCR amplification, signal generation and release by cleavage of sequence specific alleles ([employer], [employer], [place]). 69 RESULT: Ramirez Frankel M.D., Ph.D. Test Performed by: [place] [address] [employer] Worker: Shalom Snow II, M.D., Ph.D. 70 This individual DOES NOT have the Prothrombin K76284W mutation. Although the Prothrombin B94493J mutation is absent, the individual may have other genetic and environmental risk factors for thrombosis. If clinically indicated, suggest Coagulation Consultation 53103 (Thrombophilia Profile) to complete the evaluation for an inherited or acquired thrombosing disorder (i.e., thrombophilia). Consider genetic consultation and counseling of potentially affected family members regarding laboratory testing. ADDITIONAL INFORMATION This test is a direct mutation analysis using PCR amplification, signal generation and release by cleavage of sequence specific alleles ([employer], [employer], [place]). 71 RESULT: Ramirez Frankel M.D., Ph.D. Test Performed by: [place] [address] [employer] Worker: Shalom Snow II, M.D., Ph.D. 72 The [...] REFERENCE VALUE <=13 (Fasting) Test Performed by: [place] [address] [employer] [employer] Worker: Shalom Snow II, M.D., Ph.D. 73 Desirable [...] [address]: Sergio Jacome MD Acct: [id number] Unit: [id number] AGE: 55 Location: [facility] Re10/13/15 SEX: F Status: REG REF SPEC: [id number] LION: 10/13/15-0 [facility] DR: Sergio Jacome MD REQ: [id number] RECD: 10/14/15 STATUS: JORDAN KEENAN DR: Jose R Viramontes [...] performed at Main Lab DEPARTMENT OF PATHOLOGY, [address] [place] [address] Ayaz Franco M.D. Director [facility] # [id number] 78 Because ethnic data is not always [...] Negative (<=0.8 AI) 81 Test Performed by: [place] [address] [place] Worker: Shalom Snow II, M.D., Ph.D. 82 Please [...] use in employment-related testing. Test Performed by: [address] [address] [place] Worker: Shalom Snow II, M.D., Ph.D. 91 REFERENCE [...] use in employment-related testing. Test Performed by: [facility] - [address] [address] [place] Worker: Shalom Snow II, M.D., Ph.D. [address] SOOD by [id number] at 1707 on 07/02/14. Results read back [...] for medical purposes only. 110 Verbal to [id number] ED by [id number] at 1418 on 02/12/14. Results read back [...] 0.03 ng/mL Not supportive of diagnosis of [place] 0.03 - 0.50 ng/mL Indeterminate: suggest serial studies if clinically indicated. Greater than 0.5 ng/mL Consistent with diagnosis of [place] 113 Therapeutic concentration: <50 ug/mL Toxic concentration: >120 ug/mL 114 RUN DATE: 01/05/13 [facility] LAB LIVE PAGE 1 RUN TIME: [address] [place] [address] Specimen Inquiry Name: CHAYO HUANG Chriss : [address]: Cresencio Camarena Acct: [id number] Unit: [id number] AGE: 52 Location: ED Re01/03/13 SEX: F Status: DEP ER SPEC: [id number] LION: 01/03/13 [facility] DR: Cresencio Rodriguez DO REQ: [id number] RECD: 01/03/13 STATUS: COMP SHLOMO DR: Jose R Viramontes MD _ SOURCE: [...] performed at Main Lab DEPARTMENT OF PATHOLOGY, [facility] [place] [employer] [place], [place] [address] Ayaz Franco M.D. Director [facility] Permit #[id number] RUN DATE: 01/05/13 [facility] LAB LIVE PAGE 2 RUN TIME: 950 [facility] [place] [facility] [place] [employer] [place], [place] [address] Specimen Inquiry Patient: CHAYO HUANG [id number] (Continued) Specimen: [id number] Collected: 01/03/13 Received: 01/03/13 (Continued) Procedure Result Verified Site Wound/Misc Culture Final (continued) 01/05/13949 1. MRSA (continued) M.I.C. RX --------- ------ * Ampicillin/Sulbactam-Deduced R Cefazolin-Deduced R * These antibiotics are not available in the [facility] Formulary Contact the Microbiology Department for any additional antibiotic reporting. END OF REPORT * ML=Testing performed at Main Lab DEPARTMENT OF PATHOLOGY, [address] [place] [address] Ayaz Franco M.D. Director [facility] Permit #[id number] 115 Because ethnic data is not always [...] <15 (or dialysis) 116 RUN DATE: 12/01/12 [facility] LAB LIVE PAGE 1 RUN TIME: [address] [place] [address] Specimen Inquiry Name: SALCHAYO MARQUEZ Chriss : [address]: Jose Juan Leyva MD Acct: [id number] Unit: [id number] AGE: 52 Location: [facility] Re11/29/12 SEX: F Status: DEP ER SPEC: [id number] LION: 11/29/12 [facility] DR: Jose Juan Leyva MD REQ: [id number] RECD: 11/29/12 STATUS: GIANCARLO KEENAN DR: BAUDILIO Viramontes MD _ SOURCE: THROAT SPDESC: ORDERED: Throat Beta Str Procedure Result Verified Site Throat Beta Strep Culture Final 12/01/12- 0758 ML Negative For Group A Beta Streptococcus END OF REPORT * ML=Testing performed at Main Lab DEPARTMENT OF PATHOLOGY, [address] [place] [address] Ayaz Franco M.D. Director [facility] Permit #[id number] 117 This test detects intact HCG only [...] use in employment-related testing. Test Performed by: [address] [address] [place] Worker: Diego Valentine III, M.D. 127 -- REFERENCE [...] use in employment-related testing. Test Performed by: [address] [address] [place] Worker: Deigo Valentine III, M.D. Procedures Date CPT Code Description Status 03/06/2018 89129 Arthroscopy,Knee,Meniscectomy Media & Lateral Completed 03/06/2018 99713 Arthroscopy,Knee,Meniscectomy Media & Lateral Completed 12/12/2017 03321 Arthroscopy,Knee,Meniscectomy Medial Or Lateral Completed 12/12/2017 51076 Arthroscopy,Knee,Meniscectomy Medial Or Lateral Completed 12/05/2017 32599 EKG Tracing & Interpretation Completed 11/08/2017 Mammogram Completed 01/04/2017 30688 ECHO Transthorasic Realtime 2D W Doppler & Color Flow Completed Hosp 11/01/2015 Mammogram Completed 10/13/2015 Colonoscopy Completed 09/07/2015 96030 Stress Test Completed 09/07/2015 58604 Stress Test Completed 08/09/2015 79230 EKG Tracing & Interpretation Completed 09/19/2012 Mammogram Completed 11/21/2011 99102 Rad Exam; Ankle Limited Completed Encounters Type Date Location Provider CPT E/M Dx Office Visit 02/24/2018 [place] [address] S83.222A 11:15a Of [facility]. S83.262A M25.462 Office Visit 02/07/2018 9:15a [facility] [place] [address] M17.0 C.M.A. S83.221D M25.562 M25.462 Office Visit 01/24/2018 2:00p [facility] Internal Medicine Cori Low, [address] M17.0 - [place] RPA-C M25.561 M25.562 Office Visit 12/05/2017 11:00a [facility] Internal Jose R Viramontes, 67458 Z01.818 Medicine - [place] Weston Carty,FACP S83.221D I10 I82.502 Z79.01 Office Visit 11/22/2017 1:45p [place] [address] S83.221A Of C.M.A. M25.461 M17.11 Office Visit 11/11/2017 3:00p [place] [address] S83.221A Of C.M.A. M25.561 M25.461 Office Visit 10/14/2017 2:30p [facility] [place] [address] M25.461 C.M.A. S83.221A Office Visit 10/14/2017 1:00p [facility] Internal Medicine Nancy Campbell, N.P. 05462 M25.561 - [place] Office Visit 06/06/2017 4:10p [facility] Internal Medicine Jose R Viramontes, 96584 J45.41 - [place] Weston Carty,FAC Office Visit 04/25/2017 1:00p [facility] Internal Medicine Michael Thompson, 10162 J06.9 - Jessica Carty Office Visit 01/22/2017 4:40p [facility] Internal Medicine Jose R Viramontes, 61795 I63.9 - Selwyn Carty,FACP I10 F33.2 Office Visit 01/04/2017 7:26a [facility] Assoc, Marion Lebron, 65156 H81.20 Hospitalists D.O. 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 Internal Medicine Jose R Viramontes, 41798 Z00.01 - Selwyn Carty,FACP F33.2 I82.502 Z12.31 E72.19 N18.1 Office Visit 09/18/2016 2:00p [facility] Internal Jose R Viramontes, 84903 I82.502 Azam Samano M.D.,FACP F33.2 Z11.1 S93.401D Office Visit 07/17/2016 2:40p [facility] Internal Jose R Viramontes, 70445 I82.442 Azam Samano M.D.,FACP F33.2 S93.401D Office Visit 04/10/2016 2:40p [facility] Internal Jose R Viramontes, 97689 I82.442 Azam Samano M.D.,FACP Q79.6 Z23 Office Visit 04/03/2016 9:30a [facility] Duane Gabriel 49586 S93.401D Of Patricia Carty R60.0 Office Visit 02/07/2016 4:40p [facility] Internal Medicine Jose R Viramontes, 88637 F33.2 - Selwyn Carty,FACP I10 Office Visit 02/03/2016 3:10p [facility] [place] [facility] 11487 G57.51 Patricia Carty Office Visit 01/13/2016 3:10p [facility] [place] 95729 G57.51 Patricia Carty Office Visit 12/27/2015 3:10p [facility] [place] [facility] 53347 G57.51 Patricia Carty Office Visit 11/10/2015 10:30a [facility], 06403 M79.671 CHeather Morgan. Office Visit 10/25/2015 2:40p [facility] Internal Medicine Jose R Christiansond, 00847 F33.2 - [place] Fab.DFani,FACP I10 N95.1 Z12.31 Office Visit 09/20/2015 1:40p [facility] Internal Medicine Jose R CamarenaFani [place], [address] R07.9 - [place] M.Gael,FACP F33.2 T50.B96A I10 Z11.1 Office Visit 08/09/2015 2:00p [facility] Internal Medicine Jose R CamarenaFani Viramontes, 60734 R07.9 - Selwyn Carty,FACP F33.2 Z12.11 Office Visit 02/15/2015 4:20p [facility] [place] [facility], 43976 729.5 Patricia Morgan. Office Visit 01/07/2015 3:20p [facility] [place], 47397 727.67 C.Gonzalo Morgan. Office Visit 12/22/2014 3:20p [facility] [place], 64445 727.67 C.Gonzalo Morgan. Office Visit 11/30/2014 4:10p [facility], 78575 727.67 C.Gonzalo Morgan. Office Visit 11/29/2014 3:30p [facility] Internal Medicine Joaquín [place] [address] 844.9 - [place] 729.5 Office Visit 06/23/2014 3:40p [facility] Internal Medicine Jose R Gael Viramontes, 51706 296.33 - [place] Carty,FACP 415.19 Office Visit 04/29/2014 2:30p [facility] Internal Medicine Jerica Robles, N.P. 25357 296.33 - [place] Office Visit 03/24/2014 2:00p [facility] Internal Medicine Jose R Viramontes, 60647 493.92 - [place] Machelle,FACP 296.33 415.19 V04.81 V03.82 Office Visit 02/22/2014 1:40p [facility] Internal Medicine Jose R Viramontes, 26659 415.19 - Selwyn Carty,FACP 296.33 V76.51 Office Visit 02/13/2014 3:16p [facility], Harpal ChrissFani Torres 14142 415.19 Hospitalists Machelle Roy 780.2 300.00 401.9 Office Visit 02/12/2014 3:15p [facility],pc Li Crow N.P. 61426 415.19 Hospitalists 780.2 300.00 401.9 Office Visit 01/05/2013 4:40p [facility] Internal Medicine Gama Rosario, 00695 110.8 - Selwyn Carty Office Visit 12/01/2012 2:00p [facility] Internal Medicine Jose R Viramontes, 53595 493.92 - Selwyn Carty,FACP Office Visit 11/24/2012 4:11p [facility] Alicia Esposito, 30238 682.6 Assoc, Hospitalists M.D. 401.9 Office Visit 11/23/2012 4:11p [facility], Alicia Esposito, 73859 682.6 Hospitalists M.D. 401.9 Office Visit 11/22/2012 4:10p [facility] Assoc, Aliciazane Esposito, 08800 682.6 Hospitalists M.D. 401.9 Office Visit 09/04/2012 4:30p [facility] Internal Medicine Jerica Robles, N.P. 88906 465.9 - Selwyn V76.19 V76.51 Office Visit 05/13/2012 10:50a [facility] Internal Medicine Jose R Viramontes, 89204 296.23 - Selwyn Carty,FACP Office Visit 04/17/2012 3:00p [facility] OVIDIO Galdamez 11910 844.9 Of C.M.Solange Office Visit 02/14/2012 10:30a [facility] Internal Medicine Jose R Viramontes, 55474 296.30 - Selwyn Carty,FACP 401.1 726.71 V76.19 V76.51 V04.81 Office Visit 12/19/2011 1:00p [facility] [place], 97082 726.71 Patricia Carty Office Visit 11/21/2011 2:00p [facility] [place], 68217 726.71 Patricia Carty Office Visit 11/16/2011 3:00p [facility] Internal Medicine Jose R Viramontes, 64991 296.23 - Selwyn Carty,FACP 305.03 401.1 Office Visit 06/27/2009 1:30a [facility] Ken Haparminder, 44638 305.90 Assoc, Hospitalists Machelle Office Visit 06/26/2009 12:15a [facility] Demetrice Stallworth, 49975 977.9 Assoc, Hospitalists Machelle V62.84 Plan of Care Future Appointment(s):04/29/2018 11:00 am - Krish Reyes MD at [facility] Patricia05/06/2018 2:20 pm - Jose R Viramontes M.D.,FACP at [facility] Internal Medicine [facility]03/18/2018 - Krish Reyes, MDS83.262A Prph tear of lat mensc, current injury, left knee, initNew Therapy:Physical TherapyFollow up:Follow Up: 6 eenkoI08.222A Prph tear of medial meniscus, current injury, l knee, init
[2018-04-10 18:29] VITALS: BP 150/83
[2018-04-10] MEDS ORDERED: Ipratropium 0.5MG/2.5ML NEB* 0.5 MG/2.5 ML NEB.SOLN INH ONE (18:37)
[2018-04-10] MEDS ORDERED: predniSONE TAB* 20 MG PO ONE (18:37)
[2018-04-10] MEDS ORDERED: Albuterol 2.5 MG/3 ML NEB.SOL* (0.083%) INH ONE (18:37)
--- NOTE | 2018-04-10 18:41 | UC ---
Respiratory Complaint HPI - HPI Summary HPI Summary: This is a 57-year-old female that presents here with a 2 day history of progressively worsening cough wheezing and shortness of breath. She has not been febrile. She is out of her inhaler. She has had nasal congestion sinus pressure postnasal drip as well as sore throat. - History of Current Complaint Chief Complaint: UCRespiratory Stated Complaint: SORE THROAT Time Seen by Provider: 04/10/18 18:33 Hx Obtained From: Patient Hx Last Menstrual Period: jul 2012 Onset/Duration: Gradual Onset, Lasting Days Timing: Constant Severity Initially: Mild Severity Currently: Moderate Pain Intensity: 6 Pain Scale Used: 0-10 Numeric Character: Cough: Productive Aggravating Factors: Nothing Alleviating Factors: Nothing Associated Signs And Symptoms: Positive: Wheezing, Nasal Congestion, Hoarseness , Sinus Discomfort - Allergies/Home Medications Allergies/Adverse Reactions: Allergies Allergy/AdvReac Type Severity Reaction Status Date / Time cortisone Allergy Severe rash, n/v Verified 03/14/18 09:42 Home Medications: Home Medications Ibuprofen 600 mg PO Q6HR PRN 04/10/18 [History Confirmed 04/10/18] PMH/Surg Hx/FS Hx/Imm Hx Endocrine History: Dyslipidemia Cardiovascular History: Hypertension Respiratory History: Asthma, Bronchitis, Pneumonia Other History Of: Anticoagulant Therapy - Surgical History Surgical History: None Surgery Procedure, Year, and Place: T/A AGE 9, [facility]. 1998 Left foot adenoma, [facility]. 2002 benign lumpectomy right BREAST,. D&C and uterine ablation 2010. right knee arthroscopy AND partial meiscectomy. L knee arthrocopy february 2018 - Family History Known Family History: Positive: Cardiac Disease Negative: Other - JOINT LAXITY Family History: Mother: Heart failure. Father: Stroke - Social History Alcohol Use: None Substance Use Type: None Smoking Status (MU): Former Smoker Amount Used/How Often: pack a day for 10 yrs When Did the Patient Quit Smoking/Using Tobacco: 10 yrs ago - Immunization History Most Recent Influenza Vaccination: 2013 Most Recent Tetanus Shot: in the past year Most Recent Pneumonia Vaccination: doesn't remember the date Review of Systems Constitutional: Negative Skin: Negative Eyes: Negative ENT: Nasal Discharge Respiratory: Shortness Of Breath, Cough Cardiovascular: Negative Gastrointestinal: Negative Genitourinary: Negative Motor: Negative Neurovascular: Negative Musculoskeletal: Negative Neurological: Negative Psychological: Negative All Other Systems Reviewed And Are Negative: Yes Physical Exam Triage Information Reviewed: Yes Appearance: Well-Appearing, No Pain Distress, Well-Nourished Vital Signs: Initial Vital Signs Temp 98.1 F 04/10/18 18:19 Pulse 84 04/10/18 18:19 Resp 24 04/10/18 18:19 BP 150/83 04/10/18 18:19 Pulse Ox 99 04/10/18 18:19 Vital Signs Reviewed: Yes Eyes: Positive: Conjunctiva Clear ENT: Positive: Hearing grossly normal, Nasal congestion, Nasal drainage, TMs normal, Hoarse voice, Uvula midline. Negative: Tonsillar swelling, Tonsillar exudate, Trismus, Muffled voice, Dental tenderness, Sinus tenderness Neck: Positive: Supple, Nontender, No Lymphadenopathy Respiratory: Positive: Accessory muscle use, Wheezing Cardiovascular: Positive: RRR, No Murmur Musculoskeletal: Positive: ROM Intact, No Edema Neurological: Positive: Alert Psychological Exam: Normal Skin Exam: Normal UC Diagnostic Evaluation - Laboratory O2 Sat by Pulse Oximetry: 99 - normal/not hypoxic Re-Evaluation - Re-Evaluation First Eval Re-Evaluation Time: 19:07 Change: Improved - subjectively improved, decrease WOB after neb, still wheezing Respiratory Course/Dx - Course Course Of Treatment: declines CXR and repeat neb...has go leave to pickle maker grandkids - Differential Dx/Diagnosis Provider Diagnoses: acute bronchitis with bronchospasm Discharge - Sign-Out/Discharge Documenting (check all that apply): Patient Departure All imaging exams completed and their final reports reviewed: No Studies - Discharge Plan Condition: Improved Disposition: HOME Prescriptions: predniSONE [Deltasone 20 MG TAB] 40 mg PO DAILY #8 tab Patient Education Materials: Acute Bronchitis (ED) Referrals: Jose R Viramontes MD [Primary Care Provider] - 4 Days Additional Instructions: use inhaler 2 puffs 4x day for 7 days recheck for new or worsening symptoms or if not improved in 2-3 days - Billing Disposition and Condition Condition: IMPROVED Disposition: Home
[2018-04-10] MEDS ORDERED: Albuterol HFA INHALER* 8 gm MDI INH ONE (19:05)
[2018-04-10] MEDS ORDERED: Azithromycin TAB* 250 MG PO ONE (19:06)
== END 2018-04-10 19:22 | disposition home or self-care (01) ==
LOC: UCEAST 17:53
DX: J20.9 Acute bronchitis, unspecified (principal); Z88.8 Allergy status to other drugs, medicaments and biological substances; Z87.891 Personal history of nicotine dependence
CPT/HCPCS: 99213; A9270-GY; G0463; J7512

== ENCOUNTER 2018-08-08 09:23 | Emergency (ER) | payer MEDICARE, MEDICAID ==
[2018-08-08 09:42] VITALS: BP 137/84
--- NOTE | 2018-08-08 10:19 | UC ---
Abdominal Pain Female HPI - HPI Summary HPI Summary: 3 DAYS OF SEVERE LOWER ABDOMINAL PAIN. HAS HAD CHILLS AND OVERALL MALAISE. NO NAUSEA/VOMITING. NO DIARRHEA. LAST BM SEVERAL DAYS AGO. APPETITE HAS BEEN DOWN. - History of Current Complaint Chief Complaint: UCGI Stated Complaint: STOMACH PAIN Time Seen by Provider: 08/08/18 10:01 Hx Obtained From: Patient Hx Last Menstrual Period: jul 2012 Onset/Duration: Sudden Onset, Lasting Days, Still Present Timing: Constant Severity Initially: Moderate Severity Currently: Moderate Pain Intensity: 7 Pain Scale Used: 0-10 Numeric Location: Suprapubic Radiates: No Character: Sharp Aggravating Factor(s): Movement Alleviating Factor(s): Nothing Associated Signs and Symptoms: Positive: Decreased Appetite. Negative: Diaphoresis, Blood in Stool, Urinary Symptoms, Nausea Allergies/Adverse Reactions: Allergies Allergy/AdvReac Type Severity Reaction Status Date / Time cortisone Allergy Severe rash, n/v Verified 08/08/18 09:43 PMH/Surg Hx/FS Hx/Imm Hx Cardiovascular History: Hypertension Respiratory History: Asthma Psychological History: Depression Other History Of: Anticoagulant Therapy - Surgical History Surgical History: None Surgery Procedure, Year, and Place: T/A AGE 9, [facility]. 1998 Left foot adenoma, [facility]. 2002 benign lumpectomy right BREAST,. D&C and uterine ablation 2010. right knee arthroscopy AND partial meiscectomy. L knee arthrocopy february 2018 - Family History Known Family History: Positive: Cardiac Disease Negative: Other - JOINT LAXITY Family History: Mother: Heart failure. Father: Stroke - Social History Alcohol Use: None Substance Use Type: None Smoking Status (MU): Former Smoker Amount Used/How Often: pack a day for 10 yrs When Did the Patient Quit Smoking/Using Tobacco: 10 yrs ago - Immunization History Most Recent Influenza Vaccination: 2013 Most Recent Tetanus Shot: in the past year Most Recent Pneumonia Vaccination: doesn't remember the date Review of Systems All Other Systems Reviewed And Are Negative: Yes Constitutional: Positive: Chills Respiratory: Positive: Negative Cardiovascular: Positive: Negative Gastrointestinal: Positive: Abdominal Pain Genitourinary: Positive: Negative Physical Exam Triage Information Reviewed: Yes Appearance: Well-Nourished, Pain Distress - MOD/SEVERE. PT HOLDING LOWER ABDOMEN , ROCKING BACK AND FORTH AND CHATTERING Vital Signs: Initial Vital Signs Temp 100.1 F 08/08/18 09:39 Pulse 88 08/08/18 09:39 Resp 18 08/08/18 09:39 BP 137/84 08/08/18 09:39 Pulse Ox 98 08/08/18 09:39 Laboratory Tests 08/08/18 09:55 POC Urine Color Yellow POC Urine Clarity Clear POC Urine pH 8.5 POC Ur Specif [place] 1.015 POC Urine Protein Trace A POC Ur Glucose (UA) Negative POC Urine Ketones Negative POC Urine Blood Negative POC Urine Nitrite Negative POC Urine Bilirubin Negative POC Urine Urobilinogen 0.2 POC U Leukocyte Esteras Negative Vital Signs Reviewed: Yes Eyes: Positive: Conjunctiva Clear ENT: Positive: Hearing grossly normal Neck: Positive: Supple Respiratory: Positive: No respiratory distress, No accessory muscle use Cardiovascular: Positive: Pulses Normal Abdomen Description: Positive: Soft, Other: - SUPRAPUBIC TTP. NO REBOUND OR RIGIDITY. Negative: Distended, Guarding Bowel Sounds: Positive: Present Musculoskeletal: Positive: No Edema Neurological: Positive: Alert Psychological: Positive: Normal Response To Family, Age Appropriate Behavior Skin: Negative: Rashes Abd Pain Female Course/Dx - Course Course Of Treatment: PT IS ACUTE DISTRESS DUE TO PAIN, EXQUISITELY TENDER LOWER ABDOMEN. ELEVATED TEMP. TO ED FOR FURTHER EVAL. PT OFFERED TRANSPORT TO THE ED BY AMBULANCE BUT DECLINES. ADVISED THAT BY NOT TRAVELING IN A MONITORED SETTING SHE COULD BE RISKING WORSENING OF HER CONDITION THAT COULD POSE A THREAT TO HER LIFE, HEALTH AND MEDICAL SAFETY. SHE VERBALIZES UNDERSTANDING AND CONTINUES TO DECLINE AMBULANCE TRANSFER. - Differential Dx/Diagnosis Provider Diagnosis: Lower abdominal pain Discharge - Sign-Out/Discharge Documenting (check all that apply): Patient Departure All imaging exams completed and their final reports reviewed: No Studies - Discharge Plan Condition: Fair Disposition: [facility] Patient Education Materials: Abdominal Pain (ED) Referrals: Jose R Viramontes MD [Primary Care Provider] - If Needed Additional Instructions: GO DIRECTLY TO THE [facility] [place] ED FROM HERE FOR FURTHER EVALUATION. YOU HAVE DECLINED TRANSFER TO THE ED BY AMBULANCE. BE ADVISED THAT BY NOT TRAVELING IN A MONITORED SETTING YOU COULD BE RISKING WORSENING OF YOUR CONDITION THAT COULD POSE A THREAT TO YOUR LIFE, HEALTH AND MEDICAL SAFETY. - Billing Disposition and Condition Condition: FAIR Disposition: Trans [facility]
== END 2018-08-08 10:15 | disposition short-term general hospital (02) ==
LOC: UCEAST 09:23
DX: R10.30 Lower abdominal pain, unspecified (principal); I10 Essential (primary) hypertension; R53.81 Other malaise; J45.909 Unspecified asthma, uncomplicated; Z88.8 Allergy status to other drugs, medicaments and biological substances; Z87.891 Personal history of nicotine dependence
CPT/HCPCS: 81003; 99212; G0463

== ENCOUNTER 2018-08-27 12:17 | Emergency (ER) | payer MEDICARE, MEDICAID ==
[2018-08-27 12:25] VITALS: BP 124/72
--- NOTE | 2018-08-27 12:56 | UC ---
Respiratory Complaint HPI - HPI Summary HPI Summary: 58-year-old female with history of asthma presents with 2 week history of productive cough and chest congestion. Associated with intermittent subjective fever, mild nasal congestion, chest tightness, intermittent wheezing, and mild shortness of breath. States that she has been using her inhaler a couple times a day and nebulizer at night. States she was evaluated in the emergency room on 08/08/2018 and diagnosed with some colitis and started on Cipro and Flagyl which she discontinued after 3-4 days due to nausea and vomiting. Denies ear pain, sore throat, palpitations, weakness or dizziness, abdominal pain, nausea, vomiting, or diarrhea. - History of Current Complaint Chief Complaint: UCRespiratory Stated Complaint: URI Time Seen by Provider: 08/27/18 12:33 Hx Obtained From: Patient Hx Last Menstrual Period: jul 2012 Pain Intensity: 6 - Allergies/Home Medications Allergies/Adverse Reactions: Allergies Allergy/AdvReac Type Severity Reaction Status Date / Time cortisone Allergy Severe rash, n/v Verified 08/27/18 12:25 Home Medications: Home Medications Tramadol HCl 50 mg PO ONCE PRN 08/27/18 [History Confirmed 08/27/18] PMH/Surg Hx/FS Hx/Imm Hx - Additional Past Medical History Additional PMH: PE Endocrine History: Hypothyroidism, Dyslipidemia Cardiovascular History: Hypertension Respiratory History: Asthma Psychological History: Depression Other History Of: Anticoagulant Therapy - Surgical History Surgical History: Yes Surgery Procedure, Year, and Place: T/A AGE 9, [facility]. 1998 Left foot adenoma, [facility]. 2002 benign lumpectomy right BREAST,. D&C and uterine ablation 2010. right knee arthroscopy AND partial meiscectomy. L knee arthrocopy february 2018 - Family History Known Family History: Positive: Cardiac Disease - CHF, Other - stroke, NEGATIVE : JOINT LAXITY - Social History Occupation: Disabled Lives: Alone Alcohol Use: None Substance Use Type: None Smoking Status (MU): Former Smoker Amount Used/How Often: pack a day for 10 yrs When Did the Patient Quit Smoking/Using Tobacco: 10 yrs ago - Immunization History Most Recent Influenza Vaccination: 2013 Most Recent Tetanus Shot: in the past year Most Recent Pneumonia Vaccination: doesn't remember the date Review of Systems All Other Systems Reviewed And Are Negative: Yes Constitutional: Positive: Fever, Chills Skin: Negative: Rash Eyes: Negative: Drainage, Eye Redness ENT: Positive: Nasal Discharge, Sinus Congestion. Negative: Sore Throat, Ear Ache, Sinus Pain/Tenderness Respiratory: Positive: Shortness Of Breath, Cough Cardiovascular: Negative: Palpitations, Chest Pain Gastrointestinal: Negative: Abdominal Pain, Vomiting, Diarrhea, Nausea Genitourinary: Positive: Negative Musculoskeletal: Positive: Negative Neurological: Positive: Negative Is Patient Immunocompromised?: No Physical Exam - Summary Physical Exam Summary: GENERAL APPEARANCE: Well developed, well nourished, alert and cooperative, and appears to be in no acute distress. EYES: Conjunctiva clear. No drainage. Vision is grossly intact. EARS: External auditory canals and tympanic membranes clear, hearing grossly intact. NOSE: Mild nasal congestion. No nasal discharge. THROAT: Pharynx normal. No tonsilar inflammation, swelling, exudate, or lesions. Uvula midline. Oral cavity normal. Teeth and gingiva in good general condition. NECK: Neck supple, non-tender without lymphadenopathy. CARDIAC: Normal S1 and S2. No S3, S4 or murmurs. Rhythm is regular. There is no peripheral edema, cyanosis or pallor. Extremities are warm and well perfused. Capillary refill is less than 2 seconds. Peripheral pulses intact. LUNGS: Clear to auscultation without rales, rhonchi, wheezing or diminished breath sounds. Loose, non-productive cough. ABDOMEN: Positive bowel sounds. Soft, nondistended, nontender. No guarding or rebound. No masses or hepatosplenomegally. MUSKULOSKELETAL: ROM intact to all extremities. No joint erythema or tenderness. Normal muscular development. Normal gait. SKIN: Skin normal color, texture and turgor with no lesions or eruptions. Triage Information Reviewed: Yes Vital Signs: Initial Vital Signs Temp 99.1 F 08/27/18 12:21 Pulse 87 08/27/18 12:21 Resp 18 08/27/18 12:21 BP 124/72 08/27/18 12:21 Pulse Ox 100 08/27/18 12:21 Vital Signs Reviewed: Yes Respiratory Course/Dx - Course Course Of Treatment: 58-year-old female with history of asthma presents with 2 week history of productive cough and chest congestion. Associated with intermittent subjective fever, mild nasal congestion, chest tightness, intermittent wheezing, and mild shortness of breath. States that she has been using her inhaler a couple times a day and nebulizer at night. States she was evaluated in the emergency room on 08/08/2018 and diagnosed with some colitis and started on Cipro and Flagyl which she discontinued after 3-4 days due to nausea and vomiting. Denies ear pain, sore throat, palpitations, weakness or dizziness, abdominal pain, nausea, vomiting, or diarrhea. Afebrile. Vital signs stable. Exam reveals an adult female in no acute distress with mild nasal congestion, occasional loose nonproductive cough, clear bilateral breath sounds, and otherwise unremarkable exam. Considering the duration of her symptoms and her recent antibiotic use will treat her for an acute bronchitis with a course azithromycin and provided her with Tessalon pearls one capsule every 8 hours as needed for cough. She is to continue to use her inhaler and/or nebulizer as needed for any shortness of breath or wheezing. She is to follow-up with her primary care provider in 5 days if symptoms do not improve. Anticipatory guidance warning symptoms were reviewed with the patient. Verbalizes understanding and agrees with plan of care. - Differential Dx/Diagnosis Differential Diagnosis/HQI/PQRI: Bronchitis, Exacerbation Of COPD, Lower Resp Infection, Sinusitis Provider Diagnosis: Acute bronchitis Discharge - Sign-Out/Discharge Documenting (check all that apply): Patient Departure All imaging exams completed and their final reports reviewed: No Studies - Discharge Plan Condition: Stable Disposition: HOME Prescriptions: Azithromyxin CHERI (NF) [Z-Cheri (Zithromax) 250 mg tabs #6] 2 tab PO .TODAY, THEN 1 DAILY #6 tab Benzonatate CAP* [Tessalon 100 MG CAP*] 100 mg PO TID PRN #30 cap PRN Reason: Cough Patient Education Materials: Acute Bronchitis (ED) Referrals: Jose R Viramontes MD [Primary Care Provider] - 5 Days (Follow up in 5 days if no improvement in symptoms.) Additional Instructions: Your history and exam are consistent with acute bronchitis. Considering the duration of symptoms and the reported fever we will treat you with an antibiotic for the infection. Start azithromycin 2 tabs today then 1 tab a day for next 4 days. Be aware that the cough with bronchitis may persist for 2-3 weeks even if other symptoms have improved. Get plenty of rest. Drink plenty of fluids. Run a cool mist humidifer in your room at night. Take over the counter acetaminophen (Tylenol) or ibuprofen (Advil, Motrin) according to directions as needed for pain or fever. Use your inhalers and/or nebulizer as directed for any shortness of breath or wheezing. Take Tessalon Perles 1 cap every 8 hours as needed for cough. Follow up with your primary care provider in 5 days if symptoms do not improve. Seek immediate medical attention in the emergency room if you have fever greater than 100.5 F despite taking acetaminophen or ibuprofen, have chest pain , difficulty breathing, or have any worsening of symptoms. - Billing Disposition and Condition Condition: STABLE Disposition: Home
== END 2018-08-27 13:16 | disposition home or self-care (01) ==
LOC: UCEAST 12:17
DX: J20.9 Acute bronchitis, unspecified (principal); I10 Essential (primary) hypertension; J45.909 Unspecified asthma, uncomplicated; F32.9 Major depressive disorder, single episode, unspecified; Z79.899 Other long term (current) drug therapy; Z87.891 Personal history of nicotine dependence; Z88.8 Allergy status to other drugs, medicaments and biological substances
CPT/HCPCS: 99212; G0463

== ENCOUNTER 2019-05-28 09:31 | Emergency (ER) | payer MEDICARE, MEDICAID ==
--- OUTSIDE RECORDS SUMMARY | 2019-05-28 09:41 | XMS REPORT | Continuity of Care Document ---
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 Hemorrhage of rectum and anus Onset: 01/14/2019 Inactive Problems Lower abdominal pain Onset: 12/15/2018 Inactive: 12/15/2018 Serum creatinine raised Onset: 12/15/2018 Inactive: 12/15/2018 Rectal hemorrhage Onset: 12/08/2018 Inactive: 12/08/2018 Anxiety Onset: 12/08/2018 Inactive: 12/08/2018 Transient insomnia Onset: 11/20/2018 Inactive: 11/20/2018 Recurrent deep vein thrombosis Onset: 11/20/2018 Inactive: 11/20/2018 Chronic pain Onset: 10/30/2018 Inactive: 10/30/2018 Hypertensive disorder Onset: 10/30/2018 Inactive: 10/30/2018 Patient new to provider Onset: 10/30/2018 Inactive: 10/30/2018 Social History Type Date Description Comments Sex Unknown Tobacco Use Start: Unknown End: Patient is a former smoker Smoking Status Reviewed: 04/16/19 Patient is a former smoker Allergies, Adverse Reactions, Alerts Active Allergies Reaction Severity Comments Date Cortisone vomiting, faint 02/19/2019 Cortisone Injection threw up, started to pass out 02/13/2019 Medications Active Medications SIG Qnty Indications Ordering Date Provider Azithromycin take 2 tablets by 6tabs Brianna Grant, 04/16/2019 250mg mouth on day 1 MD Tablets then take 1 tablet by mouth for 4 additional days Zolpidem Tartrate 1 at bedtime oral 30tabs Brianna Grant, 01/05/2019 10mg MD Tablets Verapamil HCL ER 1 daily Oral 30caps Unknown 12/15/2018 180mg Caps ER 24HR Xarelto 1 daily oral 30tabs Marta Olmedo, [facility] 11/20/2018 20mg Tablets Xanax 1 3 times a day as 45tabs Brianna Fishjairon, 11/20/2018 0.5mg Tablets needed oral Pristiq 1 daily oral 30tabs Brianna Rudy, 11/03/2018 100mg Tablets MD ER 24HR Tramadol HCL four times each Unknown 11/03/2018 50mg day Oral Tablets Triamterene/Hydrochlo once each day oral 60caps Marta Olmedo, [facility] 2018 rothiazide 37.5-25mg Capsules [facility]ent [facility] 2 [facility] J[facility].901 Brianna Rudy, 03/24/2014 110mcg/Act MD Aerosol Proair HFA 2 puffs by mouth [facility] Brianna Rudy, 10/28/2012 108(90Base) every 4 hours as MD mcg/Act Aerosol needed Sumatriptan 1 spray [facility] [address] [facility], [facility]/Act as needed for MD Solution migraine History Medications Albuterol Sulfate 1 every 4 hours prn 1units Unknown 01/05/2019 - Inhalation 01/05/2019 0.63mg/3ML Nebulizer Albuterol Sulfate 1 every 4 hours prn 1units Unknown 01/05/2019 - Inhalation 01/05/2019 0.63mg/3ML Nebulizer Albuterol Sulfate 1 every 4 hours prn 1units Unknown 01/05/2019 - Inhalation; Icd 10 : 02/04/2019 0.63mg/3ML Nebulizer J45.909 Amoxicillin/Clavulanate 1 twice daily Oral 6tabs Unknown 12/15/2018 - Potassium 12/18/2018 875-125mg Tablets Albuterol Sulfate Inhalation Unknown 11/06/2018 - 01/05/2019 0.63mg/3ML Nebulizer Verapamil HCL ER once each day Oral Unknown 11/03/2018 - 180mg Caps 12/15/2018 ER 24HR Xarelto once each day Oral Unknown 11/03/2018 - 20mg Tablets 11/20/2018 Immunizations CPT Code Status Date Vaccine Lot # 71325 Given 05/23/2017 Influenza Virus Vaccine, Quadrivalent, Split, Im Use 0.25ML 55623 Given 05/23/2017 Influenza Virus Vaccine, Quadrivalent, Split, Im Use 0.25ML 46328 Given 05/23/2017 Influenza Virus Vaccine, Quadrivalent, Split, Im Use 0.25ML 00587 Given 05/23/2017 Flu < 65 years 85628 Given 05/23/2017 Influenza Virus Vaccine, Quadrivalent, Split, Preservative Free 21034 Given 05/23/2017 Flumist 78343 Given 05/23/2017 Flu High Dose 82258 Given 05/23/2017 Influenza Virus Vaccine, Split, Preserv Free, Intradermal Use 09071 Given 04/10/2016 Influenza Virus Vaccine, Split, Preserv Free, Intradermal Use 81957 Given 04/10/2016 Flu High Dose 84927 Given 04/10/2016 Flumist 62508 Given 04/10/2016 Influenza Virus Vaccine, Quadrivalent, Split, Preservative Free 26022 Given 04/10/2016 Flu < 65 years 43883 Given 04/10/2016 Influenza Virus Vaccine, Quadrivalent, Split, Im Use 0.25ML 43728 Given 04/10/2016 Influenza Virus Vaccine, Quadrivalent, Split, Im Use 0.25ML 62277 Given 04/10/2016 Influenza Virus Vaccine, Quadrivalent, Split, Im Use 0.25ML 79331 Given 01/21/2015 MMR Vaccine 43977 Given 03/24/2014 Influenza Virus Vaccine, Split, Preserv Free, Intradermal Use 17124 Given 03/24/2014 Flu High Dose 26662 Given 03/24/2014 Flumist 16356 Given 03/24/2014 Influenza Virus Vaccine, Quadrivalent, Split, Preservative Free 94187 Given 03/24/2014 Flu < 65 years 53924 Given 03/24/2014 Influenza Virus Vaccine, Quadrivalent, Split, Im Use 0.25ML 51498 Given 03/24/2014 Influenza Virus Vaccine, Quadrivalent, Split, Im Use 0.25ML 98383 Given 03/24/2014 Influenza Virus Vaccine, Quadrivalent, Split, Im Use 0.25ML 34481 Given 03/24/2014 Pneumovax - for >=2years - PPSV23 39137 Given 03/06/2013 Influenza Virus Vaccine, Split, Preserv Free, Intradermal Use 73135 Given 03/06/2013 Flu High Dose 11204 Given 03/06/2013 Flumist 43680 Given 03/06/2013 Influenza Virus Vaccine, Quadrivalent, Split, Preservative Free 37252 Given 03/06/2013 Flu < 65 years 36691 Given 03/06/2013 Influenza Virus Vaccine, Quadrivalent, Split, Im Use 0.25ML 44795 Given 03/06/2013 Influenza Virus Vaccine, Quadrivalent, Split, Im Use 0.25ML 71113 Given 03/06/2013 Influenza Virus Vaccine, Quadrivalent, Split, Im Use 0.25ML 49893 Given 02/14/2012 Influenza Virus Vaccine, Quadrivalent, Split, Im Use 0.25ML 73198 Given 02/14/2012 Influenza Virus Vaccine, Quadrivalent, Split, Im Use 0.25ML 70363 Given 02/14/2012 Influenza Virus Vaccine, Quadrivalent, Split, Im Use 0.25ML 26360 Given 02/14/2012 Flu < 65 years 97655 Given 02/14/2012 Influenza Virus Vaccine, Quadrivalent, Split, Preservative Free 68048 Given 02/14/2012 Flumist 84478 Given 02/14/2012 Flu High Dose 00618 Given 02/14/2012 Influenza Virus Vaccine, Split, Preserv Free, Intradermal Use Vital Signs Date Vital Result Comment 04/16/2019 9:40am Height 69.5 inches 5'9.50" Weight 224.00 lb Heart Rate 89 /min Body Temperature 97.9 F O2 % BldC Oximetry 95 % BMI (Body Mass Index) 32.6 kg/m2 04/02/2019 11:15am BP Systolic 140 mmHg BP Diastolic 90 mmHg Heart Rate 97 /min Body Temperature 99.9 F O2 % BldC Oximetry 99 % Results Test Acquired Facility Test Result H/L Range Note Date MCH 12/08/2018 N2N/CCD Import MCH 31 pg 27-31 pg MCHC 12/08/2018 N2N/CCD Import MCHC 34 g/dL 31-36 g/dL MCV 12/08/2018 N2N/CCD Import MCV 93 fL 80-97 fL [place]# 12/08/2018 N2N/CCD Import [place]# 0.4 0-0.8 10 10_3/ul 3/ul [place]% 12/08/2018 N2N/CCD Import [place]% 6.8 % 0 - 10 % MPV 12/08/2018 N2N/CCD Import MPV 8.4 fL 7.4-10.4 fL Neut# 12/08/2018 N2N/CCD Import Neut# 3.6 1.5-7.7 10_3/ul 10 3/ul Neut% 12/08/2018 N2N/CCD Import Neut% 56.0 % 45 - 70 % NRBC# 12/08/2018 N2N/CCD Import NRBC# 0.0 10_3/ul NRBC% 12/08/2018 N2N/CCD Import NRBC% 0.0 _ Platelets 12/08/2018 N2N/CCD Import Platelets 270 150-450 10_3/uL 10 3/uL Potassium 12/08/2018 N2N/CCD Import Potassium 3.8 3.5-5.0 mmol/L mmol/L Protein, Total 12/08/2018 N2N/CCD Import Protein, Total 7.4 g/dL 6.4- 8.9 g/dL RBC 12/08/2018 N2N/CCD Import RBC 4.18 3.70-4.87 10_6_/uL 10 6 /uL RDW 12/08/2018 N2N/CCD Import RDW 13 % 10-15 % Sodium 12/08/2018 N2N/CCD Import Sodium 141 135-145 mmol/L mmol/L Triglycerides 12/08/2018 N2N/CCD Import Triglycerides 131 mg/dL TSH 12/08/2018 N2N/CCD Import TSH 1.43 0.34-5.60 mcIU/mL mcIU/mL WBC 12/08/2018 N2N/CCD Import WBC 6.5 3.5-10.8 10_3/uL 10 3/uL Bilirubin-Ua 12/08/2018 N2N/CCD Import Bilirubin-Ua Negative Negative - Negative Qual Blood-Ua 12/08/2018 N2N/CCD Import Blood-Ua Negative Negative - Negative Qual Glucose-Ua 12/08/2018 N2N/CCD Import Glucose-Ua Negative Negative - Negative Qual Ketones-Ua 12/08/2018 N2N/CCD Import Ketones-Ua Negative Negative - Negative Qual Leuk Est-Ua 12/08/2018 N2N/CCD Import Leuk Est-Ua TR High Negative - Negative Qual Nitrite-Ua 12/08/2018 N2N/CCD Import Nitrite-Ua Negative Negative - Negative Qual PH-Ua 12/08/2018 N2N/CCD Import PH-Ua 7.5 _ High 5 - 7 Protein-Ua 12/08/2018 N2N/CCD Import Protein-Ua Negative SP Grav-Ua 12/08/2018 N2N/CCD Import SP Grav-Ua 1.015 _ 1.003 - 1.030 Urobilinogen-Ua 12/08/2018 N2N/CCD Import Urobilinogen-Ua neg Negative - Negative A/G Ratio 12/08/2018 N2N/CCD Import A/G Ratio 1.3 _ 1-3 Albumin 12/08/2018 N2N/CCD Import Albumin 4.2 g/dL 3.2-5.2 g/dL Alk Phos 12/08/2018 N2N/CCD Import Alk Phos 101 U/L 34-104 U/L Alt 12/08/2018 N2N/CCD Import Alt 15 U/L 7-52 U/L Anion Gap 12/08/2018 N2N/CCD Import Anion Gap 11 mmol/L 2-11 mmol/L Ast 12/08/2018 N2N/CCD Import Ast 18 U/L 13-39 U/L Baso# 12/08/2018 N2N/CCD Import Baso# 0.0 0-0.2 10 10_3/ul 3/ul Baso% 12/08/2018 N2N/CCD Import Baso% 0.5 % 0 - 2 % Bilirubin Total 12/08/2018 N2N/CCD Import Bilirubin Total 0.50 0.2-1.0 mg/dL mg/dL BUN 12/08/2018 N2N/CCD Import BUN 27 mg/dL High 6-24 mg/dL BUN/Creat Ratio 12/08/2018 N2N/CCD Import BUN/Creat Ratio 19.3 _ 8-20 Calcium 12/08/2018 N2N/CCD Import Calcium 10.1 8.6-10.3 mg/dL mg/dL Chloride 12/08/2018 N2N/CCD Import Chloride 107 101-111 mmol/L mmol/L Cholesterol 12/08/2018 N2N/CCD Import Cholesterol 176 mg/dL Lymph% 12/08/2018 N2N/CCD Import Lymph% 30.4 % 20 - 45 % Lymph# 12/08/2018 N2N/CCD Import Lymph# 2.0 1.0-4.8 10_3/ul 10 3/ul LDL Cholesterol 12/08/2018 N2N/CCD Import LDL Cholesterol 100 mg/dL Hemoglobin 12/08/2018 N2N/CCD Import Hemoglobin 13.0 g/dL 12.0-16.0 g/dL Hematocrit 12/08/2018 N2N/CCD Import Hematocrit 39 % 35-47 % HDL Cholesterol 12/08/2018 N2N/CCD Import HDL Cholesterol 49.5 mg/dL Glucose 12/08/2018 N2N/CCD Import Glucose 94 mg/dL 70-100 mg/dL Globulin 12/08/2018 N2N/CCD Import Globulin 3.2 g/dL 2-4 g/dL GFR Non Afr Amer 12/08/2018 N2N/CCD Import GFR Non Afr Amer 38.8 _ >60 GFR Afr Amer 12/08/2018 N2N/CCD Import GFR Afr Amer 46.9 _ >60 Eosin% 12/08/2018 N2N/CCD Import Eosin% 6.3 % High 0 - 5 % Eosin# 12/08/2018 N2N/CCD Import Eosin# 0.4 0-0.6 10 10_3/ul 3/ul CRP 12/08/2018 N2N/CCD Import CRP 26.85 High <8.01 mg/L mg/L Creatinine 12/08/2018 N2N/CCD Import Creatinine 1.40 High 0.51-0.95 mg/dL mg/dL Co2 12/08/2018 N2N/CCD Import Co2 23 mmol/L 22-32 mmol/L OldVaccinesEntered 11/27/2018 N2N/CCD Import OldVaccinesEntered 11/27/18 HIV Test Offered 10/30/2018 N2N/CCD Import HIV Test Offered Declined Procedures Date Code Description Status 04/16/2019 23762 Brief Emotional/Behav Assessment W/ Scoring Doc Per Completed Standard Inst 04/02/2019 35421 Brief Emotional/Behav Assessment W/ Scoring Doc Per Completed Standard Inst 10/30/2018 45499 Brief Emotional/Behav Assessment W/ Scoring Doc Per Completed Standard Inst Medical Devices Description No Information Available Encounters Type Date Location Provider Dx Diagnosis Office Visit 04/16/2019 [facility] Brianna Grant MD F41.9 Anxiety disorder , 10:15a unspecified J45.901 Unspecified asthma with (acute) exacerbation Z68.32 Body mass index (BMI) 32.0-32.9, adult Office Visit 04/02/2019 11:00a [facility] Main Brianna Grant MD F32.89 Other specified depressive episodes F41.9 Anxiety disorder, unspecified F43.20 Adjustment disorder, unspecified Assessments Date Code Description Provider 04/16/2019 F41.9 Anxiety disorder, unspecified Brianna Grant MD 04/16/2019 J45.901 Unspecified asthma with (acute) exacerbation Brianna Grant MD 04/16/2019 Z68.32 Body mass index (BMI) 32.0-32.9, adult Brianna Grant MD 04/02/2019 F32.89 Other specified depressive episodes Brianna Grant MD 04/02/2019 F41.9 Anxiety disorder, unspecified Brianna Grant MD 04/02/2019 F43.20 Adjustment disorder, unspecified Brianna Grant MD Plan of Treatment Future Appointment(s):07/17/2019 11:30 am - Lacy Bush DO at [facility] Main12/2018 - Brianna Grant MDF41.9 Anxiety disorder, bblaejmexnpL09.901 Unspecified asthma with (acute) vxiuxdxffcbxY93.32 Body mass index (BMI) 32.0- 32.9, adultAllNew Medication:Azithromycin 250 mg - take 2 tablets by mouth on day 1 then take 1 tablet by mouth for 4 additional days Functional Status Description No Information Available Mental Status Description No Information Available Referrals Description No Information Available
--- OUTSIDE RECORDS SUMMARY | 2019-05-28 09:41 | XMS REPORT | Continuity of Care Document ---
:1960 External Reference #:[id number] Author Name Brianna Grant MD Address [address] [place] [address] Problems Active Problems Provider Date Anxiety disorder [...] Xarelto 1 daily oral 30tabs Marta Olmedo, [facility] 11/20/2018 20mg Tablets Xanax 1 3 times a day as 45tabs Brianna Fishjairon, 11/20/2018 0.5mg Tablets needed oral Pristiq 1 daily oral 30tabs Brianna Rudy, 11/03/2018 100mg Tablets MD ER 24HR Tramadol HCL four times each Unknown 11/03/2018 50mg day Oral Tablets Triamterene/Hydrochlo once each day oral 60caps Marta Olmedo, [facility] 2018 rothiazide 37.5-25mg Capsules Flovent HFA 2 puff [facility] J[facility]901 Brianna Rudy, 03/24/2014 110mcg/Act MD Aerosol Proair HFA 2 puffs by mouth [facility] Brianna Rudy, 10/28/2012 108(90Base) every 4 hours as MD mcg/Act Aerosol needed Sumatriptan 1 [facility], 20mg/Act as needed for MD Solution migraine [...] CPT Code Status Date Vaccine Lot # [id number] Given 05/23/2017 Influenza Virus Vaccine, Quadrivalent, Split, Im Use 0.25ML 12234 Given 05/23/2017 Influenza Virus Vaccine, Quadrivalent, Split, Im Use 0.25ML 20019 Given 05/23/2017 Influenza Virus Vaccine, Quadrivalent, Split, Im Use 0.25ML 95756 Given 05/23/2017 Flu < 65 years 89636 Given 05/23/2017 Influenza Virus Vaccine, Quadrivalent, Split, Preservative Free 39335 Given 05/23/2017 Flumist 11069 Given 05/23/2017 Flu High Dose 53236 Given 05/23/2017 Influenza Virus Vaccine, Split, Preserv Free, Intradermal Use 11902 Given 04/10/2016 Influenza Virus Vaccine, Split, Preserv Free, Intradermal Use 54298 Given 04/10/2016 Flu High Dose 03342 Given 04/10/2016 Flumist 16990 Given 04/10/2016 Influenza Virus Vaccine, Quadrivalent, Split, Preservative Free 53345 Given 04/10/2016 Flu < 65 years 38360 Given 04/10/2016 Influenza Virus Vaccine, Quadrivalent, Split, Im Use 0.25ML 89214 Given 04/10/2016 Influenza Virus Vaccine, Quadrivalent, Split, Im Use 0.25ML 48189 Given 04/10/2016 Influenza Virus Vaccine, Quadrivalent, Split, Im Use 0.25ML 10817 Given 01/21/2015 MMR Vaccine 54212 Given 03/24/2014 Influenza Virus Vaccine, Split, Preserv Free, Intradermal Use 44635 Given 03/24/2014 Flu High Dose 53717 Given 03/24/2014 Flumist 28822 Given 03/24/2014 Influenza Virus Vaccine, Quadrivalent, Split, Preservative Free 86189 Given 03/24/2014 Flu < 65 years 61325 Given 03/24/2014 Influenza Virus Vaccine, Quadrivalent, Split, Im Use 0.25ML 06075 Given 03/24/2014 Influenza Virus Vaccine, Quadrivalent, Split, Im Use 0.25ML 68674 Given 03/24/2014 Influenza Virus Vaccine, Quadrivalent, Split, Im Use 0.25ML 96838 Given 03/24/2014 Pneumovax - for >=2years - PPSV23 72895 Given 03/06/2013 Influenza Virus Vaccine, Split, Preserv Free, Intradermal Use 20038 Given 03/06/2013 Flu High Dose 39850 Given 03/06/2013 Flumist 12939 Given 03/06/2013 Influenza Virus Vaccine, Quadrivalent, Split, Preservative Free 42568 Given 03/06/2013 Flu < 65 years 86381 Given 03/06/2013 Influenza Virus Vaccine, Quadrivalent, Split, Im Use 0.25ML 57033 Given 03/06/2013 Influenza Virus Vaccine, Quadrivalent, Split, Im Use 0.25ML 43375 Given 03/06/2013 Influenza Virus Vaccine, Quadrivalent, Split, Im Use 0.25ML 21774 Given 02/14/2012 Influenza Virus Vaccine, Quadrivalent, Split, Im Use 0.25ML 47664 Given 02/14/2012 Influenza Virus Vaccine, Quadrivalent, Split, Im Use 0.25ML 21745 Given 02/14/2012 Influenza Virus Vaccine, Quadrivalent, Split, Im Use 0.25ML 12879 Given 02/14/2012 Flu < 65 years 87989 Given 02/14/2012 Influenza Virus Vaccine, Quadrivalent, Split, Preservative Free 55066 Given 02/14/2012 Flumist 68570 Given 02/14/2012 Flu High Dose 05186 Given 02/14/2012 Influenza Virus Vaccine, Split, Preserv [...] N2N/CCD Import MCV 93 fL 80-97 fL [place]# 12/08/2018 N2N/CCD Import [place]# 0.4 0-0.8 10 10_3/ul 3/ul [place]% 12/08/2018 N2N/CCD Import [place]% 6.8 % 0 - 10 % MPV [...] Offered Declined Procedures Date Code Description Status 04/02/2019 59751 Brief Emotional/Behav Assessment W/ Scoring Doc Per Completed Standard Inst 10/30/2018 68743 Brief Emotional/Behav Assessment W/ Scoring Doc Per Completed Standard Inst Medical Devices Description No Information Available Encounters Type Date Location Provider Dx Diagnosis Office Visit 04/16/2019 JIN Grant MD F41.9 Anxiety disorder , 10:15a unspecified J45.901 Unspecified asthma with (acute) exacerbation Z68.32 Body mass index (BMI) 32.0-32.9, adult Office Visit 04/02/2019 11:00a JIN [place]olt, MD F32.89 Other specified depressive episodes F41.9 [...] Treatment Future Appointment(s):07/17/2019 11:30 am - Lacy Bush, at [facility] Main - Brianna Grant MDF32.89 Other specified depressive bvgbmrepM37.9 Anxiety disorder, pqaozktidsqF27.20 Adjustment disorder, unspecified Functional Status Description No Information Available Mental Status Description No Information Available Referrals Description No Information Available
--- OUTSIDE RECORDS SUMMARY | 2019-05-28 09:41 | XMS REPORT | Continuity of Care Document ---
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 Onset: 01/05/2013 Allergic asthma Jose R Viramontes M.D.,FACP Onset: 03/24/2014 Mixed hyperlipidemia Jose R Viramontes M.D.,FACP Onset: 09/18/2016 Ex-smoker Jose R Viramontes M.D.,FACP Onset: 10/09/2016 Tendon contracture Krish Reyes MD Onset: 04/27/2019 Enthesopathy of ankle AND/OR tarsus Krish Reyes MD Onset: 04/27/2019 Social History Type Date Description Comments Sex Unknown Tobacco Use Start: Unknown End: Former Cigarette Smoker Began 15 years ago, Unknown smoked 1/2 PPD for about 10 years, Cigarette Use Quit - Age 51 Smoking Status Reviewed: 04/27/19 Former Cigarette Smoker Began 15 years ago , smoked 1/2 PPD for about 10 years, ETOH Use 05/13/2018 Denies alcohol use ETOH Use 10/25/2015 Has consumed alcohol in sober 3 yrs the past Tobacco Use Start: Unknown End: Patient is a former Unknown smoker Recreational Drug Use Denies Drug Use Recreational Drug Use Formerly used Cocaine regularly Allergies, Adverse Reactions, Alerts Active Allergies Reaction Severity Comments Date Cortisone vomiting, faint 11/16/2011 Medications Active Medications SIG Qnty Indications Ordering Date Provider Zithromax Z-Albert 2 tab on day 1 then 6tabs J45.901 Shirin Flores, 2018 250mg 1 tablet daily X 4 M.D. Tablets days Albuterol Sulfate inhale the contents 150ml J45.901 Shirin Flores, 2018 of 1 vial by mouth M.D. 0.63mg/3ML Nebulizer via nebulizer every 4 to 6 hours as needed Nebulizer 1 unit nebulization 1units J45.901 Shirin Flores, 06/24/2018 Device with albuterol M.D. every 4-6hours and as needed Nebulizer 1 unit nebulization 1units J45.901 Shirin Flores, 06/24/2018 Kit/Tubing/Mouthpiec every 4- 6 hours as M.D. e needed Kit Verapamil HCL ER 1 by mouth every 90caps Michael E. 05/13/[address] alexa Thompson M.D. 180mg Caps ER 24HR capsules as tablets are currently on backorder Shingrix 0.5 milliliters 2units Jose R Mayo 05/13/2018 50mcg/0.5ML intramuscular now Machelle Viramontes,FACP Suspension Rec and 2-3 months later repeat Desvenlafaxine Take 1 Tablet By 90tabs Jose R Mayo 04/24/2018 Succinate ER Mouth Every Morning Machelle Viramontes,FACP 100mg Tablets ER 24HR Voltaren apply 4 gms to 300units M17.0 Jose R Mayo 04/03/2018 1% Gel affected area twice Machelle Viramontes,FACP a day as needed Naproxen take 1 tab every 12 60tabs Tami 01/24/2018 500mg hours as needed for Machelle Wu Tablets pain Crutch Set use as needed right 1Pair M25.561 Nancy Campbell, 10/14/2017 [facility] [place] [facility] Atorvastatin Calcium Take 1 Tablet By 90tabs I63.9 Jose R Mayo 01/24/2017 Mouth Everyday AT Machelle Viramontes,FACP 10mg Tablets Bedtime Aspirin Adult Low 1 by mouth every Other Ordering 01/04/2017 Dose day Provider 81mg Tablets DR Marrero take 1 tablet by 90tabs I82.502 Jose R Mayo 04/10/2016 20mg Tablets mouth every day Machelle Viramontes,FACP Flovent HFA 2 puff twice a day 1mon J45.901 Jose R Mayo 03/24/2014 Machelle Viramontes,FACP 110mcg/Act Aerosol Proair HFA 2 puffs po q4h prn 1units Jose R Mayo 10/28/2012 Machelle Viramontes,FACP 108(90Base) mcg/Act Aerosol Alprazolam 1 tablets by mouth 90tabs Santos Mcdaniels NP 1mg three times a day Tablets as needed Zolpidem Tartrate 1/2-1 tab by mouth 30tabs Nadeen Barajas MD every night at 10mg Tablets bedtime as needed Sumatriptan 1 spray in nostril 1units Jose R Mayo 20mg/Act as needed for Machelle Viramontes,FACDeb Solution migraine Multi Vitamin Daily 1 by mouth every Unknown day Tablets Tramadol HCL 3 times a day as Unknown 50mg needed Tablets Triamterene/Hydrochl Take One Tablet By 30tabs Nora Infante, orothiazide Mouth Every Day [employer] 37.5-25mg Tablets Medications Administered in Office Medication SIG Qnty Indications Ordering Provider Date PPD Nurse Visit A 07/16/2017 Injection ANDRES Viramontes, 05/29/2017 [facility], 09/18/2016 [facility], 09/20/2015 [facility] Buck NP 09/27/2014 Injection Immunizations CPT Code Status Date Vaccine Lot # [id number] Given 05/23/2017 Influenza Virus Vaccine, Quadrivalent, Split, Preservative Free 42007 Given 04/10/2016 Influ Virus Vaccine, Quadrivalent, Split Virus, [id number] [address] Given 01/21/2015 Measles Mumps And Rubella MMR [id number] [id number] Given 03/24/2014 Pneumonia Vaccine [id number] 81996 Given 03/24/2014 Flu Vaccine Split Virus Preservative Free For [id number] Indiv [id number] Older Q2035 Given 03/06/2013 Afluria Vaccine [id number] Given 02/14/2012 Fluzone Vaccine [id number] Vital Signs Date Vital Result Comment 04/27/2019 9:24am Height 69 inches 5'9" Weight 220.00 lb Heart Rate 64 /min BP Systolic 132 mmHg BP Diastolic 90 mmHg BMI (Body Mass Index) 32.5 kg/m2 03/23/2019 10:19am Height 69 inches 5'9" Weight 220.00 lb Heart Rate 70 /min BP Systolic 114 mmHg BP Diastolic 70 mmHg Respiratory Rate 18 /min Pain Level 5 BMI (Body Mass Index) 32.5 kg/m2 Results Description No Information Available Procedures Date Code Description Status 11/08/2017 13431435 Mammogram Completed 11/01/2015 64005362 Mammogram Completed 10/13/2015 13043564 Colonoscopy Completed 09/19/2012 [id number] Mammogram Completed Medical Devices Description No Information Available Encounters Type Date Location Provider Dx Diagnosis Office Visit 03/23/2019 [facility] Tari Reyes.62 Achilles 10:45a at [facility] tendinitis, left leg Office Visit 02/20/2019 [facility] Krish Reyes M76.62 Achilles 10:30a at [facility] tendinitis, left leg Assessments Date Code Description Provider 04/27/2019 [email or web address] Achilles tendinitis, left leg Krish Reyes MD 04/27/2019 M25.775 Osteophyte, left foot Krish Reyes MD 04/27/2019 M67.02 Short Achilles tendon (acquired), left ankle Krish Reyes MD 03/23/2019 M76.62 Achilles tendinitis, left leg Krish Reyes MD 02/20/2019 M76.62 Achilles tendinitis, left leg Krish Reyes MD Plan of Treatment 04/27/2019 - Krish Reyes MDM76.62 Achilles tendinitis, left legFollow up: Follow Up: after testing / imaging is umsnvkecvY29.775 Osteophyte, left footM67.02 Short Achilles tendon (acquired), left ankle Functional Status Description No Information Available Mental Status Description No Information Available Referrals Description No Information Available
[2019-05-28 09:44] VITALS: BP 149/82
--- NOTE | 2019-05-28 10:20 | UC ---
Throat Pain/Nasal Luis Manuel HPI - HPI Summary HPI Summary: 58-year-old female comes in with a chief complaint of 2 weeks of upper respiratory tract infection symptoms. Started out with runny nose. Gradually started to become more focal on the left side of her face in the left maxillary sinus area and pain in the left here. Also has a sore throat. She is able to swallow. No rash. She uses tramadol for chronic knee pain and that's not helping much with the pain. She's also been taking acetaminophen for the pain and that's not helping. She does have some rhinorrhea. No weakness or numbness. Patient is also been having left eye being red and having crusting and drainage. - History of Current Complaint Chief Complaint: UCRespiratory Stated Complaint: EAR/ SORE THROAT EYE ISSUE Time Seen by Provider: 05/28/19 10:07 Hx Last Menstrual Period: jul 2012 Pain Intensity: 5 - Allergies/Home Medications Allergies/Adverse Reactions: Allergies Allergy/AdvReac Type Severity Reaction Status Date / Time cortisone Allergy Severe rash, n/v Verified 05/28/19 09:45 Home Medications: Home Medications Acetaminophen TAB* [Tylenol TAB*] 650 mg PO Q4H PRN 05/28/19 [History Confirmed 05/28/19] PMH/Surg Hx/FS Hx/Imm Hx Previously Healthy: Yes Endocrine History: Dyslipidemia Cardiovascular History: Hypertension Respiratory History: Pulmonary Embolism - dvt Other History Of: Anticoagulant Therapy - Surgical History Surgical History: Yes Surgery Procedure, Year, and Place: T/A AGE 9, [facility]. 1998 Left foot adenoma, [facility]. 2002 benign lumpectomy right BREAST,. D&C and uterine ablation 2010. 2017 right knee arthroscopy AND partial meiscectomy. L knee arthrocopy february 2018 - Family History Known Family History: Positive: Cardiac Disease - CHF, Other - stroke, NEGATIVE : JO[place] - Social History Alcohol Use: Rare Substance Use Type: None Smoking Status (MU): Former Smoker Amount Used/How Often: pack a day for 10 yrs When Did the Patient Quit Smoking/Using Tobacco: 10 yrs ago - Immunization History Most Recent Influenza Vaccination: 2013 Most Recent Tetanus Shot: in the past year Most Recent Pneumonia Vaccination: doesn't remember the date Review of Systems All Other Systems Reviewed And Are Negative: Yes Constitutional: Positive: Other - SEE HPI Skin: Positive: Negative Eyes: Positive: Drainage, Eye Redness, Other - SEE HPI ENT: Positive: Ear Ache, Nasal Discharge, Sinus Congestion, Sinus Pain/ Tenderness Respiratory: Positive: Negative Cardiovascular: Positive: Negative Gastrointestinal: Positive: Negative Motor: Positive: Negative Neurovascular: Positive: Negative Musculoskeletal: Positive: Negative Neurological: Positive: Negative Psychological: Positive: Negative Is Patient Immunocompromised?: No Physical Exam Triage Information Reviewed: Yes Appearance: Well-Nourished, Ill-Appearing - MILD, Pain Distress - MILD Vital Signs: Initial Vital Signs Temp 99.1 F 05/28/19 09:39 Pulse 80 05/28/19 09:39 Resp 16 05/28/19 09:39 BP 149/82 05/28/19 09:39 Pulse Ox 100 05/28/19 09:39 Vital Signs Reviewed: Yes Eyes: Positive: Conjunctiva Inflamed - LEFT, Discharge - LEFT, Other: ENT: Positive: Pharyngeal erythema, TMs normal - Tragus is nontender to palpation on the left side. Ear canal on the left side is clear. No rash on the side of the face. No facial droop. No evidence of a peritonsillar abscess at this time. Oral pharynx is open., Uvula midline. Negative: Tonsillar swelling, Tonsillar exudate, Muffled voice, Hoarse voice Neck: Positive: Supple Respiratory: Positive: Lungs clear, Normal breath sounds, No respiratory distress Cardiovascular: Positive: RRR Musculoskeletal: Positive: Strength Intact, ROM Intact Neurological: Positive: Alert, Muscle Tone Normal Psychological: Positive: Age Appropriate Behavior Skin Exam: Normal Throat Pain/Nasal Course/Dx - Course Course Of Treatment: No rash seen on the face. We'll treat for sinusitis with Augmentin. Will treat left conjunctivitis with tobramycin. Patient's been taking acetaminophen along with her tramadol. We discussed using a different pain medication to decrease the use of acetaminophen and will use [place]. I did not appreciate any facial droop on examination to indicate a facial nerve palsy at this time. Patient's follow-up primary care doctor get reevaluated sooner if worse any questions or concerns. - Differential Dx/Diagnosis Provider Diagnosis: Sinusitis, Conjunctivitis, Left ear pain Discharge ED - Sign-Out/Discharge Documenting (check all that apply): Patient Departure All imaging exams completed and their final reports reviewed: No Studies - Discharge Plan Condition: Stable Disposition: HOME Prescriptions: Amoxicillin/Clavulanate TAB* [Augmentin TAB 875*] 875 mg PO BID #20 tab HYDROcodone/ACETAMIN 5-325 MG* [[place] 5-325 TAB*] 1 tab PO Q4H PRN #20 tab MDD 6 PRN Reason: Pain - Moderate Tobramycin 0.3% OPHTH.JONATHAN* 1 drop LEFT EYE Q4H #1 btl Patient Education Materials: Sinusitis (ED), Earache (ED), Conjunctivitis (ED) Referrals: Lacy Bush DO [Primary Care Provider] - Additional Instructions: FOLLOW UP WITH YOUR DOCTOR IF NOT COMPLETELY IMPROVED. GET REEVALUATED SOONER IF NOT IMPROVED OR WORSE OR ANY QUESTIONS OR CONCERNS. - Billing Disposition and Condition Condition: STABLE Disposition: Home
== END 2019-05-28 10:30 | disposition home or self-care (01) ==
LOC: UCEAST 09:31
DX: J32.9 Chronic sinusitis, unspecified (principal); H10.9 Unspecified conjunctivitis; H92.02 Otalgia, left ear; I10 Essential (primary) hypertension; Z87.891 Personal history of nicotine dependence; Z86.718 Personal history of other venous thrombosis and embolism; Z88.8 Allergy status to other drugs, medicaments and biological substances
CPT/HCPCS: 99212; G0463

== ENCOUNTER 2019-07-07 19:04 | Emergency (ER) | payer MEDICARE, MEDICAID ==
--- OUTSIDE RECORDS SUMMARY | 2019-07-07 19:12 | XMS REPORT | Continuity of Care Document ---
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 Insomnia Onset: 11/03/2018 Knee pain Onset: 11/03/2018 Diverticular disease of colon Onset: 01/14/2019 Hemorrhage of rectum and anus Onset: 01/14/2019 Social History Type Date Description Comments Sex Unknown Tobacco Use Start: Unknown End: Patient is a former smoker Smoking Status Reviewed: 04/16/19 Patient is a former smoker Allergies, Adverse Reactions, Alerts Active Allergies Reaction Severity Comments Date Cortisone vomiting, faint 02/19/2019 Cortisone Injection threw up, started to pass out 02/13/2019 Medications Active Medications SIG Qnty Indications Ordering Provider Date Azithromycin take 2 tablets by 6taelena Grant, 04/16/2019 250mg mouth on day 1 MD Tablets then take 1 tablet by mouth for 4 additional days Zolpidem Tartrate 1 at bedtime oral 30tabs Lacy Roquew, 01/05/2019 DO 10mg Tablets Verapamil HCL ER 1 daily Oral 30caps Unknown 12/15/2018 180mg Caps ER 24HR Xarelto 1 daily oral 30tabs Lacy Karnow, 11/20/2018 20mg Tablets DO Xanax 1-3 times a day as 45tabs Brianna Grant, 11/20/2018 0.5mg Tablets needed oral MD Pristiq 1 daily oral 30tabs Lacy Karnow, 11/03/2018 100mg Tablets DO ER 24HR Tramadol HCL four times each Unknown 11/03/2018 50mg day Oral Tablets Triamterene/Hydrochl once each day oral 90caps Harpal Solis MD 11/03/2018 orothiazide 37.5-25mg Capsules Flovent HFA 2 puff twice a day 1units J45.901 Brianna Rudy, 03/24/2014 110mcg/Act Aerosol Proair HFA 2 puffs by mouth 1units Brianna Rudy, 10/28/2012 every 4 hours as 108(90Base) mcg/Act needed Aerosol Sumatriptan 1 spray in nostril 1units Brianna Rudy, 20mg/Act as needed for Solution migraine History Medications Albuterol Sulfate 1 every 4 hours prn 1units Unknown 01/05/2019 - Inhalation 01/05/2019 0.63mg/3ML Nebulizer Albuterol Sulfate 1 every 4 hours prn 1units Unknown 01/05/2019 - Inhalation 01/05/2019 0.63mg/3ML Nebulizer Albuterol Sulfate 1 every 4 hours prn 1units Unknown 01/05/2019 - Inhalation; Icd 10 : 02/04/2019 0.63mg/3ML Nebulizer J45.909 Immunizations CPT Code Status Date Vaccine Lot # [id number] Given 05/23/2017 Influenza Virus Vaccine, Quadrivalent, Split, Im Use 0.25ML 61196 Given 05/23/2017 Influenza Virus Vaccine, Quadrivalent, Split, Im Use 0.25ML 58966 Given 05/23/2017 Influenza Virus Vaccine, Quadrivalent, Split, Im Use 0.25ML 55990 Given 05/23/2017 Flu < 65 years 62123 Given 05/23/2017 Influenza Virus Vaccine, Quadrivalent, Split, Preservative Free 30179 Given 05/23/2017 Flumist 64819 Given 05/23/2017 Flu High Dose 51705 Given 05/23/2017 Influenza Virus Vaccine, Split, Preserv Free, Intradermal Use 25217 Given 04/10/2016 Influenza Virus Vaccine, Split, Preserv Free, Intradermal Use 48912 Given 04/10/2016 Flu High Dose 51565 Given 04/10/2016 Flumist 18583 Given 04/10/2016 Influenza Virus Vaccine, Quadrivalent, Split, Preservative Free 20606 Given 04/10/2016 Flu < 65 years 96170 Given 04/10/2016 Influenza Virus Vaccine, Quadrivalent, Split, Im Use 0.25ML 66789 Given 04/10/2016 Influenza Virus Vaccine, Quadrivalent, Split, Im Use 0.25ML 69568 Given 04/10/2016 Influenza Virus Vaccine, Quadrivalent, Split, Im Use 0.25ML 26615 Given 01/21/2015 MMR Vaccine 71973 Given 03/24/2014 Influenza Virus Vaccine, Split, Preserv Free, Intradermal Use 43138 Given 03/24/2014 Flu High Dose 90232 Given 03/24/2014 Flumist 77094 Given 03/24/2014 Influenza Virus Vaccine, Quadrivalent, Split, Preservative Free 40550 Given 03/24/2014 Flu < 65 years 03715 Given 03/24/2014 Influenza Virus Vaccine, Quadrivalent, Split, Im Use 0.25ML 64632 Given 03/24/2014 Influenza Virus Vaccine, Quadrivalent, Split, Im Use 0.25ML 57904 Given 03/24/2014 Influenza Virus Vaccine, Quadrivalent, Split, Im Use 0.25ML 96371 Given 03/24/2014 Pneumovax - for >=2years - PPSV23 31896 Given 03/06/2013 Influenza Virus Vaccine, Split, Preserv Free, Intradermal Use 83541 Given 03/06/2013 Flu High Dose 48081 Given 03/06/2013 Flumist 37486 Given 03/06/2013 Influenza Virus Vaccine, Quadrivalent, Split, Preservative Free 29782 Given 03/06/2013 Flu < 65 years 41785 Given 03/06/2013 Influenza Virus Vaccine, Quadrivalent, Split, Im Use 0.25ML 30996 Given 03/06/2013 Influenza Virus Vaccine, Quadrivalent, Split, Im Use 0.25ML 77956 Given 03/06/2013 Influenza Virus Vaccine, Quadrivalent, Split, Im Use 0.25ML 62887 Given 02/14/2012 Influenza Virus Vaccine, Quadrivalent, Split, Im Use 0.25ML 64902 Given 02/14/2012 Influenza Virus Vaccine, Quadrivalent, Split, Im Use 0.25ML 51503 Given 02/14/2012 Influenza Virus Vaccine, Quadrivalent, Split, Im Use 0.25ML 57181 Given 02/14/2012 Flu < 65 years 76304 Given 02/14/2012 Influenza Virus Vaccine, Quadrivalent, Split, Preservative Free 05953 Given 02/14/2012 Flumist 96988 Given 02/14/2012 Flu High Dose 45154 Given 02/14/2012 Influenza Virus Vaccine, Split, Preserv Free, Intradermal Use Vital Signs Date Vital Result Comment 07/03/2019 8:53am BP Systolic 122 mmHg BP Diastolic 72 mmHg Weight 225.00 lb Heart Rate 69 /min Body Temperature 97.7 F O2 % BldC Oximetry 98 % 04/16/2019 9:40am Height 69.5 inches 5'9.50" Weight 224.00 lb Heart Rate 89 /min Body Temperature 97.9 F O2 % BldC Oximetry 95 % BMI (Body Mass Index) 32.6 kg/m2 Results Test Acquired Date Facility Test Result H/L Range Note Laboratory test 07/03/2019 [facility] Culture SEE RESULT [address] [place] [address] [phone] Laboratory test 07/03/2019 [facility] CFM Rapid Neg finding ( )- - Strep A 1 SEE RESULT BELOW Name: JERALD HUANG : [address]: Harpal Solis MD Acct: [id number] Unit: [id number] AGE: 58 Location: [facility] Re07/03/19 SEX: F Status: REG REF SPEC: [id number] [facility]ION: 07/03/19-[address] [place] [address] DR: Harpal Solis MD REQ: [id number] RECD: 07/03/19-1252 STATUS: COMP _ SOURCE: THROAT SPDESC: ORDERED: Throat Culture COMMENTS: [id number] Procedure Result Reported Site Throat Culture Final 07/05/19- 1147 ML Organism 1 NORMAL CARLOTA Quantity 3+ Throat cultures are clinically indicated to detect the presence of group A strep, arcanobacterium and yeast. In certain cases, predominating organisms will be reported. * ML - Main Lab . END OF REPORT DEPARTMENT OF PATHOLOGY, [address] [place] [address] Ayaz Franco M.D. Director [facility] # [id number] Procedures Date Code Description Status 04/02/2019 24489 Brief Emotional/Behav Assessment W/ Scoring Doc Per Completed Standard Inst Medical Devices Description No Information Available Encounters Type Date Location Provider Dx Diagnosis Office Visit 04/16/2019 [facility] Bony Grant MD F41.9 Anxiety disorder , 10:15a unspecified J45.901 Unspecified asthma with (acute) exacerbation Z13.31 Encounter for screening for depression Z68.32 Body mass index (BMI) 32.0-32.9, adult Office Visit 04/02/2019 11:00a [facility] Brianna Grant MD F32.89 Other specified depressive episodes F41.9 Anxiety disorder, unspecified F43.20 Adjustment disorder, unspecified Z13.31 Encounter for screening for depression Assessments Date Code Description Provider 07/03/2019 J02.9 Acute pharyngitis, unspecified Nurse 04/16/2019 F41.9 Anxiety disorder, unspecified Brianna Grant MD 04/16/2019 J45.901 Unspecified asthma with (acute) exacerbation Brianna Grant MD 04/16/2019 Z13.31 Encounter for screening for depression Brianna Grant MD 04/16/2019 Z68.32 Body mass index (BMI) 32.0-32.9, adult Brianna Grant MD 04/02/2019 F32.89 Other specified depressive episodes Brianna Grant MD 04/02/2019 F41.9 Anxiety disorder, unspecified Brianna Grant MD 04/02/2019 F43.20 Adjustment disorder, unspecified Brianna Grant MD 04/02/2019 Z13.31 Encounter for screening for depression Brianna Grant MD Plan of Treatment Future Appointment(s):07/15/2019 10:30 am - Harpal Solis MD at [facility] Main2018 - Brianna Grant MDF41.9 Anxiety disorder, uyjowrgrfdbO84.901 Unspecified asthma with (acute) hsjxkfqswzrwD83.31 Encounter for screening for ftcuhntufgZ04.32 Body mass index (BMI) 32.0-32.9, adultAllNew Medication: Azithromycin 250 mg - take 2 tablets by mouth on day 1 then take 1 tablet by mouth for 4 additional days Functional Status Description No Information Available Mental Status Description No Information Available Referrals Description No Information Available
--- OUTSIDE RECORDS SUMMARY | 2019-07-07 19:12 | XMS REPORT | Continuity of Care Document ---
:1960 External Reference #:[id number] Author Name Nurse (transmitted by agent of provider [place] May) Address [address] [place] [id number] Problems Active Problems Provider Date Anxiety disorder [...] Proair HFA 2 puffs by mouth 1units Briannadanny Grant, 10/28/2012 every 4 hours as 108(90Base) mcg/Act [...] CPT Code Status Date Vaccine Lot # [id number] Given 05/23/2017 Influenza Virus Vaccine, Quadrivalent, Split, Im Use 0.25ML 56370 Given 05/23/2017 Influenza Virus Vaccine, Quadrivalent, Split, Im Use 0.25ML 54714 Given 05/23/2017 Influenza Virus Vaccine, Quadrivalent, Split, Im Use 0.25ML 67176 Given 05/23/2017 Flu < 65 years 51804 Given 05/23/2017 Influenza Virus Vaccine, Quadrivalent, Split, Preservative Free 32283 Given 05/23/2017 Flumist 88974 Given 05/23/2017 Flu High Dose 49009 Given 05/23/2017 Influenza Virus Vaccine, Split, Preserv Free, Intradermal Use 18554 Given 04/10/2016 Influenza Virus Vaccine, Split, Preserv Free, Intradermal Use 46511 Given 04/10/2016 Flu High Dose 08099 Given 04/10/2016 Flumist 21310 Given 04/10/2016 Influenza Virus Vaccine, Quadrivalent, Split, Preservative Free 82724 Given 04/10/2016 Flu < 65 years 32527 Given 04/10/2016 Influenza Virus Vaccine, Quadrivalent, Split, Im Use 0.25ML 12891 Given 04/10/2016 Influenza Virus Vaccine, Quadrivalent, Split, Im Use 0.25ML 92329 Given 04/10/2016 Influenza Virus Vaccine, Quadrivalent, Split, Im Use 0.25ML 62187 Given 01/21/2015 MMR Vaccine 87557 Given 03/24/2014 Influenza Virus Vaccine, Split, Preserv Free, Intradermal Use 80857 Given 03/24/2014 Flu High Dose 12715 Given 03/24/2014 Flumist 46530 Given 03/24/2014 Influenza Virus Vaccine, Quadrivalent, Split, Preservative Free 95181 Given 03/24/2014 Flu < 65 years 35089 Given 03/24/2014 Influenza Virus Vaccine, Quadrivalent, Split, Im Use 0.25ML 29973 Given 03/24/2014 Influenza Virus Vaccine, Quadrivalent, Split, Im Use 0.25ML 28452 Given 03/24/2014 Influenza Virus Vaccine, Quadrivalent, Split, Im Use 0.25ML 22164 Given 03/24/2014 Pneumovax - for >=2years - PPSV23 10679 Given 03/06/2013 Influenza Virus Vaccine, Split, Preserv Free, Intradermal Use 00725 Given 03/06/2013 Flu High Dose 21633 Given 03/06/2013 Flumist 67731 Given 03/06/2013 Influenza Virus Vaccine, Quadrivalent, Split, Preservative Free 34823 Given 03/06/2013 Flu < 65 years 16311 Given 03/06/2013 Influenza Virus Vaccine, Quadrivalent, Split, Im Use 0.25ML 07428 Given 03/06/2013 Influenza Virus Vaccine, Quadrivalent, Split, Im Use 0.25ML 76382 Given 03/06/2013 Influenza Virus Vaccine, Quadrivalent, Split, Im Use 0.25ML 34889 Given 02/14/2012 Influenza Virus Vaccine, Quadrivalent, Split, Im Use 0.25ML 64093 Given 02/14/2012 Influenza Virus Vaccine, Quadrivalent, Split, Im Use 0.25ML 87079 Given 02/14/2012 Influenza Virus Vaccine, Quadrivalent, Split, Im Use 0.25ML 35324 Given 02/14/2012 Flu < 65 years 10408 Given 02/14/2012 Influenza Virus Vaccine, Quadrivalent, Split, Preservative Free 29593 Given 02/14/2012 Flumist 76361 Given 02/14/2012 Flu High Dose 71409 Given 02/14/2012 Influenza Virus Vaccine, Split, Preserv [...] Result H/L Range Note Laboratory test 07/03/2019 [facility] Rapid Neg finding ( )- - Strep A Procedures Date Code Description Status 04/02/2019 02831 Brief Emotional/Behav Assessment W/ Scoring Doc Per Completed Standard Inst Medical Devices Description No Information Available Encounters Type Date Location Provider Dx Diagnosis Office Visit 04/16/2019 [facility] Bony Grant MD F41.9 Anxiety disorder , 10:15a unspecified J45.901 Unspecified asthma with (acute) exacerbation Z13.31 Encounter for screening for depression Z68.32 Body mass index (BMI) 32.0-32.9, adult Office Visit 04/02/2019 11:00a [facility] Bony Grant MD F32.89 Other specified depressive episodes F41.9 Anxiety disorder, unspecified F43.20 Adjustment disorder, unspecified Z13.31 Encounter for screening for depression Assessments Date Code Description Provider 04/16/2019 F41.9 [...] 10:30 am - Harpal Solis MD at [facility] Main2018 - Brianna Grant MDF41.9 Anxiety disorder, oqsilpztbagM18.901 Unspecified asthma with (acute) lfefpsfwwoglV22.31 Encounter for screening for vgyrcfypqnC68.32 Body mass index (BMI) 32.0-32.9, adultAllNew Medication: Azithromycin 250 mg - take 2 tablets by mouth on day 1 then take 1 tablet by mouth for 4 additional days Functional Status Description No Information Available Mental Status Description No Information Available Referrals Description No Information Available
[2019-07-07 19:45] VITALS: BP 122/67
[2019-07-07] MEDS ORDERED: Albuterol 2.5 MG/3 ML NEB.SOL* (0.083%) INH ONE (20:44)
[2019-07-07] MEDS ORDERED: DOXYcycline CAP(*) 100 MG PO ONE ×2 (20:44→20:46)
--- NOTE | 2019-07-07 21:22 | UC ---
Respiratory Complaint HPI - HPI Summary HPI Summary: 58-year-old comes with chief complaint of upper respiratory tract infection symptoms for one week. Show some rhinorrhea and it's moved down into her chest. She does have asthma. She has congestion in her chest she is not bringing very much up. She's been using her albuterol inhaler which does help some with the breathing no wheezing. She does have a history of pulmonary emboli and she states this does not feel like a pulmonary emboli. She is on Xarelto. She's had fevers and chills. - History of Current Complaint Chief Complaint: UCRespiratory Stated Complaint: CHEST CONGESTION Time Seen by Provider: 07/07/19 20:39 Hx Last Menstrual Period: jul 2012 Pain Intensity: 5 - Allergies/Home Medications Allergies/Adverse Reactions: Allergies Allergy/AdvReac Type Severity Reaction Status Date / Time cortisone Allergy Severe rash, n/v Verified 07/07/19 19:45 PMH/Surg Hx/FS Hx/Imm Hx Previously Healthy: Yes Endocrine History: Dyslipidemia Cardiovascular History: Hypertension Respiratory History: Asthma, Pulmonary Embolism Other History Of: Anticoagulant Therapy - For DVT and pulmonary emboli - Surgical History Surgical History: Yes Surgery Procedure, Year, and Place: T/A AGE 9, [facility]. 1997 Left foot adenoma, [facility]. 2002 benign lumpectomy right BREAST,. D&C and uterine ablation 2010. 2017 right knee arthroscopy AND partial meiscectomy. L knee arthrocopy february 2018 - Family History Known Family History: Positive: Cardiac Disease - CHF, Other - stroke, NEGATIVE : JOINT [place]XITY - Social History Alcohol Use: Rare Substance Use Type: None Smoking Status (MU): Former Smoker Amount Used/How Often: pack a day for 10 yrs When Did the Patient Quit Smoking/Using Tobacco: 15 years - Immunization History Most Recent Influenza Vaccination: 2013 Most Recent Tetanus Shot: in the past year Most Recent Pneumonia Vaccination: doesn't remember the date Review of Systems All Other Systems Reviewed And Are Negative: Yes Constitutional: Positive: Fever, Chills, Other - see hpi Skin: Positive: Negative Eyes: Positive: Negative ENT: Positive: Nasal Discharge Respiratory: Positive: Shortness Of Breath, Cough, Other - see hpi Cardiovascular: Positive: Other - see hpi Gastrointestinal: Positive: Negative Motor: Positive: Negative Neurovascular: Positive: Negative Musculoskeletal: Positive: Negative Neurological: Positive: Negative Psychological: Positive: Negative Is Patient Immunocompromised?: No Physical Exam Triage Information Reviewed: Yes Appearance: No Pain Distress, Well-Nourished, Ill-Appearing - mild Vital Signs: Initial Vital Signs Temp 100.1 F 07/07/19 19:39 Pulse 82 07/07/19 19:39 Resp 18 07/07/19 19:39 BP 122/67 07/07/19 19:39 Pulse Ox 100 07/07/19 19:39 Vital Signs Reviewed: Yes Eye Exam: Normal Eyes: Positive: Conjunctiva Clear ENT: Positive: Pharyngeal erythema, Nasal congestion, Nasal drainage, TMs normal Neck: Positive: Supple Respiratory: Positive: No respiratory distress, Rhonchi Cardiovascular: Positive: RRR Musculoskeletal: Positive: Strength Intact, ROM Intact Neurological: Positive: Alert, Muscle Tone Normal Psychological: Positive: Age Appropriate Behavior Skin Exam: Normal Respiratory Course/Dx - Course Course Of Treatment: We discussed getting a chest x-ray. At at this time we'll treat with doxycycline and prednisone. If the patient's not improving or worse the patient will need to be reevaluated and considered chest x-ray at that time. I did let the patient know that if she did not improve or worsens she should go to the emergency department for further evaluation and care. - Differential Dx/Diagnosis Provider Diagnosis: Bronchitis with bronchospasm Discharge ED - Sign-Out/Discharge Documenting (check all that apply): Patient Departure All imaging exams completed and their final reports reviewed: No Studies - Discharge Plan Condition: Stable Disposition: HOME Prescriptions: DOXYcycline CAP(*) [DOXYcycline 100MG CAP(*)] 100 mg PO BID #18 cap predniSONE 20 mg TAB [Deltasone 20 MG TAB*] 40 mg PO DAILY #8 tab Patient Education Materials: Acute Bronchitis (ED), Bronchospasm (ED) Referrals: Lacy Bush DO [Primary Care Provider] - Additional Instructions: FOLLOW UP WITH YOUR DOCTOR IF NOT COMPLETELY IMPROVED. GET REEVALUATED SOONER IF NOT IMPROVED OR WORSE OR ANY QUESTIONS OR CONCERNS. - Billing Disposition and Condition Condition: STABLE Disposition: Home
[2019-07-07] MEDS ORDERED: Acetaminophen TAB* 325 MG PO ONE (21:24)
== END 2019-07-07 21:37 | disposition home or self-care (01) ==
LOC: UCEAST 19:04
DX: J40 Bronchitis, not specified as acute or chronic (principal); J98.01 Acute bronchospasm; J45.909 Unspecified asthma, uncomplicated; I10 Essential (primary) hypertension; I82.409 Acute embolism and thrombosis of unspecified deep veins of unspecified lower extremity; I26.99 Other pulmonary embolism without acute cor pulmonale; Z79.01 Long term (current) use of anticoagulants; Z87.891 Personal history of nicotine dependence; Z88.8 Allergy status to other drugs, medicaments and biological substances
CPT/HCPCS: 99213; A9270-GY; G0463; J7512

== ENCOUNTER 2019-07-09 12:17 | Emergency (ER) | payer MEDICARE, MEDICAID ==
[2019-07-09] MEDS ORDERED: cefTRIAXone(*) 1 GM in NS 0.9% 50 ML* 50 ML IVPB ONE (12:34)
[2019-07-09] MEDS ORDERED: Azithromycin 500 mg/250 ml NS 500 MG/250 ML BAG IVPB ONE (12:34)
[2019-07-09 13:05] LABS: Influenza B Molecular POSITIVE (Negative)
[2019-07-09] MEDS: NS 0.9% 1000 ML** 1,000 ML IV.FLUID IV ONE ×2 (13:25→15:19)
[2019-07-09 13:32] LABS: ABS Basophils 0.1 10^3/ul (0-0.2); ABS Lymphocytes 0.6 10^3/ul (1.0-4.8); ABS Monocytes 0.5 10^3/ul (0-0.8); ABS Neutrophils 3.5 10^3/ul (1.5-7.7); Eosinophil % 0.3 %; Hematocrit 39 % (35-47); Hemoglobin 13.3 g/dL (12.0-16.0); Lymphocyte % 13.8 %; Mean Corpuscular HGB Conc 34 g/dL (31-36); Mean Corpuscular Hemoglobin 31 pg (27-31); Mean Corpuscular Volume 91 fL (80-97); Mean Platelet Volume 8.2 fL (7.4-10.4); Nucleated Red Blood Cells % 0.1; Platelet Count 241 10^3/uL (150-450); Red Blood Count 4.28 10^6 /uL (3.70-4.87); Red Cell Distribution Width 13 % (10-15); White Blood Count 4.7 10^3/uL (3.5-10.8)
[2019-07-09 13:37] LABS: Urine Appearance Clear; Urine Bilirubin Negative (Negative); Urine Blood Negative (Negative); Urine Color Yellow; Urine Glucose Negative (Negative); Urine Ketones Negative (Negative); Urine Nitrite Negative (Negative); Urine Protein Negative (Negative); Urine Specific Gravity 1.017 (1.010-1.030); Urine Urobilinogen Negative (Negative)
[2019-07-09 13:48] LABS: Activated Partial Thrombo Time 37.6 seconds (26.0-38.0); Fibrinogen 428.1 mg/dL (110.8-404.3); INR 1.15 (0.82-1.09)
[2019-07-09 13:49] LABS: Albumin 4.2 g/dL (3.2-5.2); Albumin/Globulin Ratio 1.2 (1-3); BUN/Creatinine Ratio 19.1 (8-20); C Reactive Protein 17.21 mg/L (<8.01); Calcium 9.6 mg/dL (8.6-10.3); EGFR African American 46.5 (>60); EGFR Non-African American 38.4 (>60); Globulin 3.5 g/dL (2-4); Potassium 3.3 mmol/L (3.5-5.0); Total Bilirubin 0.4 mg/dL (0.2-1.0); Total Protein 7.7 g/dL (6.4-8.9)
[2019-07-09] MEDS ORDERED: Acetaminophen TAB* 325 MG PO ONE (14:07)
--- NOTE | 2019-07-09 14:41 | ED ---
Respiratory - HPI Summary HPI Summary: Patient is a 58 y/o F presenting to [facility] with complaints of SOB, CP, cough, rhinorrhea, and fever. She was evaluated at on 07/07/19. She was diagnosed with bronchitis and started on Doxycycline. She was advised to return for further evaluation if Sx do not improve. Patient reports a worsening of Sx, she returned to for additional workup. Patient also reports noting some blood in her sputum. CXR was done and negative, provider advised the patient to come to ED to rule out PE as she has a Hx of PE. She is on Xarelto. Home medications and allergies are reviewed. - History of Current Complaint Chief Complaint: EDShortnessOfBreath Stated Complaint: BRONCHITIS PER PT Time Seen by Provider: 07/09/19 12:39 Hx Obtained From: Patient Onset/Duration: Lasting Days, Still Present Timing: Constant Current Severity: Severe Pain Intensity: 9 Character: Cough (Productive) Sputum Color: Red (Blood) Associated Signs and Symptoms: Fever, SOB, Chest Pain, Nasal Congestion - Allergy/Home Medications Allergies/Adverse Reactions: Allergies Allergy/AdvReac Type Severity Reaction Status Date / Time cortisone Allergy Severe rash, n/v Verified 07/09/19 12:27 PMH/Surg Hx/FS Hx/Imm Hx Endocrine/Hematology History: Reports: Hx Anticoagulant Therapy - For DVT and pulmonary emboli, Hx Anemia - HISTORY OF Denies: Hx Diabetes Cardiovascular History: Reports: Hx Deep Vein Thrombosis - right leg, Hx Hypertension, Other Cardiovascular Problems/Disorders - blood clot in head 1 years ago Denies: Hx Pacemaker/ICD Respiratory History: Reports: Hx Asthma, Hx Pulmonary Embolism - hx of approx 4 years ago Denies: Other Respiratory Problems/Disorders GI History: Denies: Other GI Disorders History: Reports: Other Problems/Disorders - HX OF UTI, NONE NOW Denies: Hx Dialysis, Hx Renal Disease Musculoskeletal History: Reports: Hx Arthritis - mercy knees- Jj-Danlos, Hx Tendonitis - RIGHT FOOT, Other Musculoskeletal History - hypermobile EDS Sensory History: Reports: Hx Contacts or Glasses - both- will wear glasses day of surgery Denies: Hx Hearing Aid Opthamlomology History: Reports: Hx Contacts or Glasses - both- will wear glasses day of surgery Neurological History: Reports: Hx Headaches, Hx Migraine - has prn meds, Hx Seizures, Other Neuro Impairments/Disorders - Insomnia Psychiatric History: Reports: Hx Anxiety, Hx Depression, Hx Post Traumatic Stress Disorder, Hx Substance Abuse - not for 6 years Denies: Hx Eating Disorder, Hx Panic Disorder, Hx of Violent Episodes Against Others - Cancer History Hx Chemotherapy: No Hx Radiation Therapy: No - Surgical History Surgery Procedure, Year, and Place: T/A AGE 9, [facility]. 1998 Left foot adenoma, [facility]. 2002 benign lumpectomy right BREAST,. D&C and uterine ablation 2010. 2017 right knee arthroscopy AND partial meiscectomy. 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- wakes up before end Infectious Disease History: No Infectious Disease History: Reports: Hx of Known/Suspected MRSA Denies: Hx Clostridium Difficile, Hx Hepatitis, Hx Human Immunodeficiency Virus (HIV), Hx Shingles, Hx Tuberculosis, Hx Known/Suspected VRE, Hx Known/ Suspected VRSA, History Other Infectious Disease, Traveled Outside the [place] in Last 30 Days - Family History Known Family History: Positive: Cardiac Disease - CHF, Other - stroke, NEGATIVE : JOINT LAXITY - Social History Alcohol Use: None Hx Substance Use: No Substance Use Type: Reports: None Hx Tobacco Use: Yes Smoking Status (MU): Former Smoker Amount Used/How Often: pack a day for 10 yrs Review of Systems Positive: Fever Positive: Nasal Discharge Positive: Chest Pain Positive: Shortness Of Breath, Cough All Other Systems Reviewed And Are Negative: Yes Physical Exam - Summary Physical Exam Summary: VITAL SIGNS: Reviewed. GENERAL: Patient is a well-developed and nourished female who is lying comfortable in the stretcher. Patient is not in any acute respiratory distress. HEAD AND FACE: No signs of trauma. No ecchymosis, hematomas or skull depressions. No sinus tenderness. Nasal discharge noted. EYES: PERRLA, EOMI x 2, No injected conjunctiva, no nystagmus. EARS: Hearing grossly intact. Ear canals and tympanic membranes are within normal limits. MOUTH: Oropharynx within normal limits. NECK: Supple, trachea is midline, no adenopathy, no JVD, no carotid bruit, no c- spine tenderness, neck with full ROM. CHEST: Symmetric, no tenderness at palpation. LUNGS: Crackles in lungs. No wheezing. CVS: Tachycardic, S1 and S2 present, no murmurs or gallops appreciated. ABDOMEN: Soft, non-tender. No signs of distention. No rebound, no guarding, and no masses palpated. Bowel sounds are normal. EXTREMITIES: FROM in all major joints, no edema, no cyanosis or clubbing. NEURO: Alert and oriented x 3. No acute neurological deficits. Speech is normal and follows commands. SKIN: Dry and warm. Triage Information Reviewed: Yes Vital Signs On Initial Exam: Initial Vitals Temp Pulse Resp BP Pulse Ox 102.7 F 106 24 146/84 100 07/09/19 12:25 07/09/19 12:25 07/09/19 12:25 07/09/19 12:25 07/09/19 12:25 Vital Signs Reviewed: Yes Procedures - Sedation Patient Received Moderate/Deep Sedation with Procedure: No Diagnostics - Vital Signs Vital Signs Temp Pulse Resp BP Pulse Ox 07/09/19 13:00 93 19 100 07/09/19 12:51 95 17 161/84 100 07/09/19 12:50 18 07/09/19 12:25 102.7 F 106 24 146/84 100 - Laboratory Lab Results: Lab Results 07/09/19 07/09/19 07/09/19 Range/Units 12:40 12:51 13:19 WBC (3.5-10.8) 10^3/uL RBC (3.70-4.87) 10^6 /uL Hgb (12.0-16.0) g/dL Hct (35-47) % MCV (80-97) fL MCH (27-31) pg MCHC (31-36) g/dL RDW (10-15) % Plt Count (150-450) 10^3/uL MPV (7.4-10.4) fL Neut % (Auto) % Lymph % (Auto) % [place] % (Auto) % Eos % (Auto) % Baso % (Auto) % Absolute Neuts (auto) (1.5-7.7) 10^3/ul Absolute Lymphs (auto) (1.0-4.8) 10^3/ul Absolute Monos (auto) (0-0.8) 10^3/ul Absolute Eos (auto) (0-0.6) 10^3/ul Absolute Basos (auto) (0-0.2) 10^3/ul Absolute Nucleated RBC 10^3/ul Nucleated RBC % ESR INR (Anticoag Therapy) 1.15 H (0.82-1.09) APTT 37.6 (26.0-38.0) seconds Fibrinogen 428.1 H (110.8-404.3) mg/dL Sodium (135-145) mmol/L Potassium (3.5-5.0) mmol/L Chloride (101-111) mmol/L Carbon Dioxide (22-32) mmol/L Anion Gap (2-11) mmol/L BUN (6-24) mg/dL Creatinine (0.51-0.95) mg/dL Est GFR ( Amer) (>60) Est GFR (Non-Af Amer) (>60) BUN/Creatinine Ratio (8-20) Glucose (70-100) mg/dL Lactic Acid (0.5-2.0) mmol/L Calcium (8.6-10.3) mg/dL Total Bilirubin (0.2-1.0) mg/dL AST (13-39) U/L ALT (7-52) U/L Alkaline Phosphatase (34-104) U/L Total Creatine Kinase (10-223) U/L Troponin I (<0.03) ng/mL C-Reactive Protein (<8.01) mg/L B-Natriuretic Peptide (<=100) pg/mL Total Protein (6.4-8.9) g/dL Albumin (3.2-5.2) g/dL Globulin (2-4) g/dL Albumin/Globulin Ratio (1-3) Urine Color Yellow Urine Appearance Clear Urine pH 5.0 (5-9) Ur Specific [place] 1.017 (1.010-1.030) Urine Protein Negative (Negative) Urine Ketones Negative (Negative) Urine Blood Negative (Negative) Urine Nitrate Negative (Negative) Urine Bilirubin Negative (Negative) Urine Urobilinogen Negative (Negative) Ur Leukocyte Esterase Negative (Negative) Urine Glucose Negative (Negative) Influenza A (Rapid) Not Reportable Influenza B (Rapid) Positive A (Negative) 07/09/19 07/09/19 07/09/19 Range/Units 13:19 13:20 13:20 WBC 4.7 (3.5-10.8) 10^3/uL RBC 4.28 (3.70-4.87) 10^6 /uL Hgb 13.3 (12.0-16.0) g/dL Hct 39 (35-47) % MCV 91 (80-97) fL MCH 31 (27-31) pg MCHC 34 (31-36) g/dL RDW 13 (10-15) % Plt Count 241 (150-450) 10^3/uL MPV 8.2 (7.4-10.4) fL Neut % (Auto) 73.6 % Lymph % (Auto) 13.8 % [place] % (Auto) 11.1 % Eos % (Auto) 0.3 % Baso % (Auto) 1.2 % Absolute Neuts (auto) 3.5 (1.5-7.7) 10^3/ul Absolute Lymphs (auto) 0.6 L (1.0-4.8) 10^3/ul Absolute Monos (auto) 0.5 (0-0.8) 10^3/ul Absolute Eos (auto) 0.0 (0-0.6) 10^3/ul Absolute Basos (auto) 0.1 (0-0.2) 10^3/ul Absolute Nucleated RBC 0.0 10^3/ul Nucleated RBC % 0.1 ESR Pending INR (Anticoag Therapy) (0.82-1.09) APTT (26.0-38.0) seconds Fibrinogen (110.8-404.3) mg/dL Sodium 137 (135-145) mmol/L Potassium 3.3 L (3.5-5.0) mmol/L Chloride 104 (101-111) mmol/L Carbon Dioxide 19 L (22-32) mmol/L Anion Gap 14 H (2-11) mmol/L BUN 27 H (6-24) mg/dL Creatinine 1.41 H (0.51-0.95) mg/dL Est GFR ( Amer) 46.5 (>60) Est GFR (Non-Af Amer) 38.4 (>60) BUN/Creatinine Ratio 19.1 (8-20) Glucose 93 (70-100) mg/dL Lactic Acid 1.8 (0.5-2.0) mmol/L Calcium 9.6 (8.6-10.3) mg/dL Total Bilirubin 0.40 (0.2-1.0) mg/dL AST 27 (13-39) U/L ALT 21 (7-52) U/L Alkaline Phosphatase 92 (34-104) U/L Total Creatine Kinase 266 H (10-223) U/L Troponin I 0.00 (<0.03) ng/mL C-Reactive Protein 17.21 H (<8.01) mg/L B-Natriuretic Peptide (<=100) pg/mL Total Protein 7.7 (6.4-8.9) g/dL Albumin 4.2 (3.2-5.2) g/dL Globulin 3.5 (2-4) g/dL Albumin/Globulin Ratio 1.2 (1-3) Urine Color Urine Appearance Urine pH (5-9) Ur Specific [place] (1.010-1.030) Urine Protein (Negative) Urine Ketones (Negative) Urine Blood (Negative) Urine Nitrate (Negative) Urine Bilirubin (Negative) Urine Urobilinogen (Negative) Ur Leukocyte Esterase (Negative) Urine Glucose (Negative) Influenza A (Rapid) Influenza B (Rapid) (Negative) 07/09/19 Range/Units 13:20 WBC (3.5-10.8) 10^3/uL RBC (3.70-4.87) 10^6 /uL Hgb (12.0-16.0) g/dL Hct (35-47) % MCV (80-97) fL MCH (27-31) pg MCHC (31-36) g/dL RDW (10-15) % Plt Count (150-450) 10^3/uL MPV (7.4-10.4) fL Neut % (Auto) % Lymph % (Auto) % [place] % (Auto) % Eos % (Auto) % Baso % (Auto) % Absolute Neuts (auto) (1.5-7.7) 10^3/ul Absolute Lymphs (auto) (1.0-4.8) 10^3/ul Absolute Monos (auto) (0-0.8) 10^3/ul Absolute Eos (auto) (0-0.6) 10^3/ul Absolute Basos (auto) (0-0.2) 10^3/ul Absolute Nucleated RBC 10^3/ul Nucleated RBC % ESR INR (Anticoag Therapy) (0.82-1.09) APTT (26.0-38.0) seconds Fibrinogen (110.8-404.3) mg/dL Sodium (135-145) mmol/L Potassium (3.5-5.0) mmol/L Chloride (101-111) mmol/L Carbon Dioxide (22-32) mmol/L Anion Gap (2-11) mmol/L BUN (6-24) mg/dL Creatinine (0.51-0.95) mg/dL Est GFR ( Amer) (>60) Est GFR (Non-Af Amer) (>60) BUN/Creatinine Ratio (8-20) Glucose (70-100) mg/dL Lactic Acid (0.5-2.0) mmol/L Calcium (8.6-10.3) mg/dL Total Bilirubin (0.2-1.0) mg/dL AST (13-39) U/L ALT (7-52) U/L Alkaline Phosphatase (34-104) U/L Total Creatine Kinase (10-223) U/L Troponin I (<0.03) ng/mL C-Reactive Protein (<8.01) mg/L B-Natriuretic Peptide 31 (<=100) pg/mL Total Protein (6.4-8.9) g/dL Albumin (3.2-5.2) g/dL Globulin (2-4) g/dL Albumin/Globulin Ratio (1-3) Urine Color Urine Appearance Urine pH (5-9) Ur Specific [place] (1.010-1.030) Urine Protein (Negative) Urine Ketones (Negative) Urine Blood (Negative) Urine Nitrate (Negative) Urine Bilirubin (Negative) Urine Urobilinogen (Negative) Ur Leukocyte Esterase (Negative) Urine Glucose (Negative) Influenza A (Rapid) Influenza B (Rapid) (Negative) Result Diagrams: 07/09/19 13:20 07/09/19 13:20 Lab Statement: Any lab studies that have been ordered have been reviewed, and results considered in the medical decision making process. - EKG 0953 Cardiac Rate: Tachycardia - rate of 101 BPM EKG Rhythm: Sinus Tachycardia Summary of EKG Findings: EKG showed sinus tachycardia with rate of 101 BPM, no ST elevations. EKG was reviewed and interpreted by ED physician. Re-Evaluation - Re-Evaluation First Eval Re-Evaluation Time: 14:52 Change: Improved Comment: I discussed all the findings and test results with the patient. Patient was instructed to return to the emergency room immediately if any of the symptoms return worsens. Plan of care was discussed with the patient and understands and agrees. All questions were answered at patient satisfaction. There were no further complaints or concerns. Lung exam before discharge: CTA B/ L. Good air exchange. No wheezing or crackles heard. CVS: S1 and S2 present. No murmurs appreciated. Patient is alert and oriented x 3. Patient is hemodynamically stable. Patient will be discharged home with follow up PCP in the next 2-3 days Disposition - Course Assessment/Plan: Patient is a 58 y/o F presenting to [facility] with complaints of SOB, CP, cough, rhinorrhea, and fever. She was evaluated at on 07/07/19. She was diagnosed with bronchitis and started on Doxycycline. She was advised to return for further evaluation if Sx do not improve. Patient reports a worsening of Sx, she returned to for additional workup. Patient also reports noting some blood in her sputum. CXR was done and negative, provider advised the patient to come to ED to rule out PE as she has a Hx of PE. She is on Xarelto. Home medications and allergies are reviewed. In the ED course the patient was placed in a aerial photograph interpreter, IV access was obtained, IV fluids started at 30 cc/ kg. I ordered Rocephin and Azithromycin since she was positive for sepsis screen. However, after the influenza test B was positive, I stopped the antibiotics. Blood test w/o a significant abnormality except for fibrinogen of 428, potassium 3.3, carbon dioxide is 19, AG 14, BUN 27, creatinine 1.41, CPK 266, and CRP of 17.2. Urinalysis is negative for UTI. Influenza A is negative. Influenza B is positive. Patient was given IV fluids and Tylenol for pain. Afterwards, the patients symptoms have significantly improved. Patient had a chest x-ray at the urgent care which was negative for an acute pathology. Since the patient was feeling better, the patient will be discharged home with follow with the primary care physician. Patient would not benefit from the Tamiflu since the patient has been having symptoms for more than a week. I discussed all the findings and test results with the patient. Patient was instructed to return to the emergency room immediately if any of the symptoms return worsens. Plan of care was discussed with the patient and understands and agrees. All questions were answered at patient satisfaction. There were no further complaints or concerns. Lung exam before discharge: CTA B/L. Good air exchange. No wheezing or crackles heard. CVS: S1 and S2 present. No murmurs appreciated. Patient is alert and oriented x 3. Patient is hemodynamically stable. Patient will be discharged home with follow up PCP in the next 2-3 days - Differential Dx - Cardiopulmonary Differential Diagnoses - Cardiopulmonary: Influenza, Laryngitis, Lower Resp Infection, Sinusitis - Diagnoses Provider Diagnoses: Influenza B, Dehydration Discharge ED - Sign-Out/Discharge Documenting (check all that apply): Patient Departure - discharge - Discharge Plan Condition: Stable Disposition: HOME Patient Education Materials: Dehydration (ED), Influenza (ED) Referrals: Lacy Bush DO [Primary Care Provider] - 3 Days Additional Instructions: PLEASE RETURN TO ED FOR ANY NEW OR WORSENING SYMPTOMS. PLEASE FOLLOW UP WITH YOUR PRIMARY CARE PHYSICIAN WITHIN THREE DAYS. - Billing Disposition and Condition Condition: STABLE Disposition: Home - Attestation Statements Document Initiated by Celine: Yes Documenting Scribe: TIMOTHY CEDILLO Provider For Whom Celine is Documenting (Include Credential): MOE HANSON MD Scribe Attestation: ITIMOTHY, scribed for MOE HANSON MD on 07/09/19 at 2133. Scribe Documentation Reviewed: Yes Provider Attestation: The documentation as recorded by the TIMOTHY acosta accurately reflects the service I personally performed and the decisions made by me, MOE HANSON MD Status of Scribe Document: Viewed
[2019-07-09] MEDS ORDERED: Potassium Chlor TAB* 20 MEQ TAB.ER PO ONE (14:54)
[2019-07-09 15:20] LABS: Erythrocyte Sed Rate 60 mm/Hr (0-29)
[2019-07-09 16:01] VITALS: BP 142/76
== END 2019-07-09 16:00 | disposition home or self-care (01) ==
LOC: ED 12:17
DX: J10.1 Influenza due to other identified influenza virus with other respiratory manifestations (principal); E86.0 Dehydration; I10 Essential (primary) hypertension; J45.909 Unspecified asthma, uncomplicated; F41.9 Anxiety disorder, unspecified; F32.9 Major depressive disorder, single episode, unspecified; F43.10 Post-traumatic stress disorder, unspecified; Z87.891 Personal history of nicotine dependence; Z86.711 Personal history of pulmonary embolism; Z86.718 Personal history of other venous thrombosis and embolism; Z79.01 Long term (current) use of anticoagulants; Z88.8 Allergy status to other drugs, medicaments and biological substances
CPT/HCPCS: 36415; 80053; 81003; 82550; 83605; 83880; 84484; 85025; 85384; 85610; 85652; 85730; 86140; 87040; 93005; 96360; 96361; 99283; A9270-GY